=== PATIENT | female | born 1945 | race Hispanic/Latino ===

== ENCOUNTER 2017-01-02 15:10 | Observation (INO) | payer MEDICARE ==
[2017-01-02 15:36] LABS: #Eosinphils 0.1 thou/uL (0.0-0.7); #Lymphocytes 1.9 thou/uL (1.20-3.40); #Monocytes 0.3 thou/uL (0.11-0.59); #Neutrophils 3.2 thou/uL (1.40-6.50); %Basophils 0.8 % (0.0-1.0); %Eosinophils 1.5 % (0.0-10.0); %Lymphocytes 34.6 % (21.0-51.0); %Monocytes 5.5 % (0.0-10.0); Hematocrit 36.9 % (36.0-47.0); Mean Platelet Volume 6.6 fL (7.4-10.4); Red Blood Cell (RBC) Count 4.18 mill/uL (4.20-5.40); White Blood Cell (WBC) Count 5.5 thou/uL (4.8-10.8)
[2017-01-02] MEDS ORDERED: Nitroglycerin 2% Ointment 1 INCH/1 GM Packet ONE (15:36)
[2017-01-02] MEDS ORDERED: Acetaminophen 500 MG TAB ONE (15:36)
[2017-01-02 15:42] LABS: PTT 37.2 SEC (22.9-36.1); Prothrombin Time 12.6 SEC (12.0-14.7)
[2017-01-02 15:58] LABS: ALT (SGPT) 10 U/L (8-55); AST (SGOT) 17 U/L (5-34); Alkaline Phosphatase 106 U/L (40-150); Anion Gap 15 mmol/L (10-20); BUN (Urea Nitrogen) 11 mg/dL (9.8-20.1); Bilirubin, Total 0.4 mg/dL (0.2-1.2); CK (CPK) 19 U/L (29-168); Calc. Creatinine Clearance 0 mL/min (70-130); Calcium 8.6 mg/dL (7.8-10.44); Carbon Dioxide 30 mmol/L (23-31); Chloride 97 mmol/L (98-107); Estimated GFR-MDRD 25; Globulin 4.1 g/dL (2.4-3.5); Lipase 24 U/L (8-78); Magnesium 2.1 mg/dL (1.6-2.6); Protein, Total 7.5 g/dL (6.0-8.3)
[2017-01-02 16:04] LABS: Troponin I 0.015 ng/mL (< 0.028)
--- NOTE | 2017-01-02 16:34 | RAD ---
AP VIEW OF THE CHEST: 01/02/17 INDICATION: Chest pain. IMPRESSION: No acute cardiopulmonary abnormality demonstrated. The examination is not appreciably changed from c omparison dated 09/03/16. POS: [facility]
[2017-01-02 18:32] VITALS: BMI 28.5
[2017-01-02] MEDS ORDERED: Ondansetron HCl/PF 4 MG/2 ML Vial IVP PRN (18:46)
[2017-01-02] MEDS ORDERED: Ondansetron ODT 4 MG TAB SL PRN (18:46)
[2017-01-02 19:26] LABS: Troponin I 0.018 ng/mL (< 0.028)
[2017-01-02] MEDS ORDERED: Dextrose 5% in Water 1,000 ML IV PRN (20:06)
[2017-01-02] MEDS ORDERED: Dextrose 50% Abboject 50 ML SYRINGE IVP PRN (20:06)
[2017-01-02] MEDS ORDERED: HumaLOG 300 UNITS/3 ML VIAL SC SCH (21:00)
[2017-01-02] MEDS ORDERED: Insulin Detemir 100 UNITS/ML 20 UNITS in Pre-Filled Syringe SC SCH (21:00)
[2017-01-02 22:04] LABS: Troponin I Less than 0.010 ng/mL (< 0.028)
[2017-01-03] MEDS: Sevelamer Carbonate 800 MG TAB PO SCH ×3 (08:46→16:51)
[2017-01-03] MEDS: cloNIDine HCl 0.1 MG TAB PO PRN ×2 (08:54→15:29)
[2017-01-03] MEDS ORDERED: Ondansetron HCl/PF 4 MG/2 ML Vial SLOW IVP PRN (11:46)
[2017-01-03] MEDS: Insulin Regular 300 UNITS/3 ML VIAL SC PRN ×2 (12:35→16:51)
[2017-01-03 15:40] VITALS: TEMP 98.2
[2017-01-03 16:27] VITALS: BP 146/65
--- NOTE | 2017-01-03 17:32 | NM ---
MYOCARDIAL PERFUSION GATED SPECT STUDY: Date: 01-03-17 History: Chest pain. Dose: 27 mCi Technetium 99M Cardiolite for stress and 9 mCi for the resting portion of the exam. Th e patient was stressed using 0.4 mg of Lexiscan given IV. FINDINGS: Myocardial perfusion and quantitative gated SPECT images demonstrate no significant evidence of reve rsible myocardial perfusion abnormalities. No evidence of myocardial ischemia or scar seen. Ejection fraction is 71%. IMPRESSION: Normal myocardial perfusion and quantitative gated SPECT study. POS: [facility]
--- NOTE | 2017-01-04 06:47 | HP ---
DATE OF ADMISSION: 01/02/2017 CHIEF COMPLAINT: Chest pain and shortness of breath. HISTORY OF PRESENT ILLNESS: Ms. Nicole is a 71-year-old female with past medical history of end-stage renal disease on hemodialysis, hypertension, diabetes mellitus, who developed chest pain. The patient states she was watching TV when she developed a sharp pain in the chest, retrosternal area. The pain started around 6:00 a.m. and it went away. When she went for dialysis , again the pain came back. The pain was in the retrosternal area radiating to the left side and she was also noted to have shortness of breath along with that. The patient was given nitroglycerin which helped to relieve the chest pain. So, the patient was sent to the emergency room because of this chest pain. The patient was evaluated in the ER and was given aspirin and put on nitroglycerin patch and admitted for further evaluation and management. PAST MEDICAL HISTORY: 1. Insulin-dependent diabetes mellitus. 2. End-stage renal disease, on hemodialysis. 3. Hypertension. 4. Nephrotic range proteinuria. 5. Chronic anemia. 6. History of coronary artery disease. 7. History of gout. PAST SURGICAL HISTORY: 1. Status post appendectomy. 2. Status post cholecystectomy. 3. Status post hysterectomy. 4. Status post left mastectomy. CURRENT MEDICATIONS: The patient is on Levemir insulin 20 units daily, Humalog insulin 10 units at bedtime, vitamin D daily, Renvela 1600 mg t.i.d. The patient's blood pressure medicines were stopped because of hypotension after dialysis. ALLERGIES: DARVOCET. FAMILY HISTORY: Nothing of interest. SOCIAL HISTORY: The patient lives with the family. No history of smoking. No history of alcohol intake. REVIEW OF SYSTEMS: Cardiovascular: Had chest pain and shortness of breath. Respiratory: No fever or cough. Gastrointestinal: Has nausea and vomiting once. No abdominal pain. Genitourinary: No dysuria or hematuria. Central Nervous System: No headache, no dizziness. PHYSICAL EXAMINATION: GENERAL: The patient is alert, awake, and oriented x3. VITAL SIGNS: Temperature 98, pulse 72, respirations 20, blood pressure 190/80. HEENT: Head is normocephalic and atraumatic. Pupils are equal and reactive to light. Nasopharynx is pale and dry. Hard and soft palate, no lesions were seen. Nasopharynx, no lesions were seen. NECK: Supple. No JVD. LUNGS: Breath sounds diminished bilaterally. Percussion dullness. No rales, no rhonchi. HEART: S1, S2 regular. ABDOMEN: Soft, no distention, no tenderness, Bowel sounds present. RECTAL: Deferred. NEUROLOGIC: No focal deficit. LABORATORY AND X-RAY FINDINGS: CBC shows WBC 5.3, hemoglobin 12, hematocrit 37 , platelets 196. Metabolic panel: Sodium 138, potassium 3.9, chloride 97, CO2 of 30, BUN 11, creatinine 1.1, glucose 159. Prothrombin time 12, INR 0.9. EKG shows normal sinus rhythm, no acute ST-T wave changes seen. Chest x-ray, no acute cardiopulmonary abnormality demonstrated. ASSESSMENT: 1. Chest pain and shortness of breath, rule out myocardial infarction. 2. Insulin-dependent diabetes mellitus. 3. End-stage renal disease, on hemodialysis. 4. Hypertension, uncontrolled. 5. Hyperlipidemia. PLAN: 1. Vital signs q. 4 hours. 2. Activity: As tolerated. 3. Allergies: NKDA. 4. Hep-Lock. 5. CK-MB and troponin I q. 8 hours x2. 6. Continue home medications. 7. Lexiscan stress test. 8. Accu-Cheks a.c. and at bedtime, sliding scale mild with regular insulin. MTDD
--- NOTE | 2017-01-05 11:09 | DIS ---
DATE OF ADMISSION: 01/02/2017 DATE OF DISCHARGE: 01/03/2017 ADMITTING DIAGNOSES: 1. Chest pain and shortness of breath, rule out myocardial infarction. 2. Insulin-dependent diabetes mellitus. 3. Hypertension, uncontrolled. 4. End-stage renal disease, on hemodialysis. 5. Hyperlipidemia. FINAL DIAGNOSES: 1. Chest pain and shortness of breath. No evidence of acute myocardial infarction, negative Cardio lite stress test. 2. Hypertension, uncontrolled, improved. 3. Insulin-dependent diabetes mellitus. 4. End-stage renal disease, on hemodialysis. 5. Hyperlipidemia. BRIEF SUMMARY OF HOSPITAL COURSE: Ms. Nicole is a 71-year-old female admitted because of shortness of breath and chest pain. The patient has history of diabetes and hypertension. In view of the risk factors, the patient was admitted to rule out myocardial infarction. Serial cardiac en zymes were done, and troponin I was normal. Cardiolite stress test was done and it was reported as negative for ischemia. The patient's chest pain also improved. Her blood pressure was elevated, bu t usually she runs lows on the blood pressures after dialysis. She becomes hypotensive if she is no t having the blood pressure medications. The patient is given hydralazine one dose after which bloo d pressure came down. In view of improvement, the patient was discharged. PHYSICAL EXAMINATION: At the time of discharge, GENERAL: She was stable. VITAL SIGNS: Stable. LUNGS: Clear. HEART: Sounds regular. ABDOMEN: Soft, nontender. Bowel sounds present. DISCHARGE MEDICATIONS: Include Levemir insulin 20 units daily, Humalog insulin 10 units at bedtime, Renvela 1600 mg t.i.d., and vitamin daily. FOLLOWUP: The patient will come for followup next week regarding her blood pressure.
--- NOTE | 2017-01-08 13:45 | STRESS ---
Acquisition Time: 2017-01-03 10:45:58 Total Exercise Time: 00:01:00 Test Indications: CHEST PAIN Medications: Protocol: LEXISCAN Max HR: 085 BPM 56% of Pred: 151 BPM Max BP: 142/070 mmHG Max Work Load: 1.0 METS RESTING ECG: NORMAL SINUS RHYTHM AT 63 BPM WITH A LEFT ANTERIOR FASCICULAR BLOCK SYMPTOMS: NONE NORMAL BP RESPONSE ECTOPY: NONE ECG STRESS: NO SIGNIFICANT CHANGES INTERPRETATION: INDETERMINATE ECG/AWAIT NUCLEAR IMAGES FOR DEFINITIVE DIAGNOSIS Confirmed by JUANIS OTTO M.D. ([id number]) on 01/08/2017 1:44:53 PM Referred By: MD Aysha PERRIN Confirmed By:JUANIS OTTO M.D.
== END 2017-01-03 18:26 | disposition home or self-care (01) ==
LOC: ERS 15:10 → 2SW 18:14
PROVIDERS: ADMIT Internal Medicine; ATTEND Internal Medicine
DX: R07.9 Chest pain, unspecified (principal); E11.22 Type 2 diabetes mellitus with diabetic chronic kidney disease; I12.0 Hypertensive chronic kidney disease with stage 5 chronic kidney disease or end stage renal disease; N18.6 End stage renal disease; Z99.2 Dependence on renal dialysis; Z79.4 Long term (current) use of insulin; N04.9 Nephrotic syndrome with unspecified morphologic changes; I25.10 Atherosclerotic heart disease of native coronary artery without angina pectoris; D64.9 Anemia, unspecified; Z88.5 Allergy status to narcotic agent; Z90.710 Acquired absence of both cervix and uterus; Z90.49 Acquired absence of other specified parts of digestive tract; Z90.12 Acquired absence of left breast and nipple; Z79.899 Other long term (current) drug therapy
CPT/HCPCS: 71010; 78452; 80053; 82550; 82553; 82962 ×2; 83690; 83735; 84100; 84484 ×2; 85025; 85610; 85730; 93005; 93017; 96374; 99285; A9500; G0378; 36415; 36416; A4216; J1815; J2405

== ENCOUNTER 2017-04-17 12:10 | Inpatient (IN) | payer MEDICARE ==
[2017-04-17 12:43] LABS: #Eosinphils 0.1 thou/uL (0.0-0.7); #Lymphocytes 0.6 thou/uL (1.20-3.40); #Monocytes 0.2 thou/uL (0.11-0.59); #Neutrophils 1.8 thou/uL (1.40-6.50); %Basophils 0.7 % (0.0-1.0); %Eosinophils 2.4 % (0.0-10.0); %Lymphocytes 22.8 % (21.0-51.0); %Monocytes 7.4 % (0.0-10.0); %Neutrophils 66.8 % (42.0-75.0); Hemoglobin 11.9 g/dL (12.0-16.0); Mean Corpuscular HGB CONC 33.5 g/dL (32.0-36.0); Mean Corpuscular Hemoglobin 30.3 pg (27.0-31.0); Mean Corpuscular Volume 90.3 fl (81.0-99.0); Mean Platelet Volume 7.7 fL (7.4-10.4); Platelet Count 133 thou/uL (130-400); RBC Distribution Width 14.2 % (11.5-14.5); Red Blood Cell (RBC) Count 3.95 mill/uL (4.20-5.40); White Blood Cell (WBC) Count 2.7 thou/uL (4.8-10.8)
[2017-04-17 13:08] LABS: ALT (SGPT) 10 U/L (8-55); AST (SGOT) 15 U/L (5-34); Albumin 3.4 g/dL (3.4-4.8); Alkaline Phosphatase 101 U/L (40-150); Anion Gap 17 mmol/L (10-20); BUN (Urea Nitrogen) 40 mg/dL (9.8-20.1); Bilirubin, Total 0.4 mg/dL (0.2-1.2); CK (CPK) 31 U/L (29-168); Calc. Creatinine Clearance 0 mL/min (70-130); Calcium 8.9 mg/dL (7.8-10.44); Carbon Dioxide 20 mmol/L (23-31); Chloride 106 mmol/L (98-107); Estimated GFR-MDRD 9; Globulin 3.3 g/dL (2.4-3.5); Glucose 235 mg/dL (80-115); Lipase 21 U/L (8-78); Potassium 4.9 mmol/L (3.5-5.1); Protein, Total 6.7 g/dL (6.0-8.3); Sodium 138 mmol/L (136-145)
[2017-04-17 13:10] LABS: PTT 40.1 SEC (22.9-36.1); Prothrombin Time 13.3 SEC (12.0-14.7)
[2017-04-17 13:12] LABS: CKMB 1.5 ng/mL (0-6.6)
[2017-04-17] MEDS ORDERED: hydrALAZINE 20 MG/ML VIAL ONE ×2 (13:34→21:12)
--- NOTE | 2017-04-17 15:04 | CT ---
HEAD CT NONCONTRAST: COMPARISON: 08/25/16. FINDINGS: There is mild prominence of the ventricular system. Periventricular white mater hypoattenuation is p resent, and has progressed from prior exam and is most notable within the right parietal lobe. No in tracranial hemorrhage, mass effect, or midline shift. No fluid level of the imaged paranasal sinuses is seen. IMPRESSION: 1. Progressive white matter hypoattenuation which may be on the basis of progressive ischemic diseas e. There is a suggestion of a superimposed deep white matter infarction, likely chronic of the right parietal lobe. This may be further assessed with MRI of brain if necessary. 2. Mild prominence of ventricular system. POS: [facility]
[2017-04-17] MEDS ORDERED: traMADol HCl 50 MG TAB ONE (16:53)
--- NOTE | 2017-04-17 23:02 | ULT ---
ULTRASOUND CAROTID DOPPLER 04/17/17 HISTORY: Syncope. COMPARISON: Carotid doppler exam from 2014. FINDINGS: There is antegrade flow of both vertebral arteries. Low grade atherosclerotic plaque both carotid bul bs. Right ICA/CCA ratio is 0.9. Left ICA/CCA ratio is 0.86. IMPRESSION: No hemodynamically significant stenosis. POS: [facility]
--- NOTE | 2017-04-17 23:42 | HP ---
DATE OF ADMISSION: 04/17/2017 REASON FOR ADMISSION AND CHIEF COMPLAINT: Syncopal episode. HISTORY OF PRESENT ILLNESS: Ms. Nicole is a 71-year-old female with past medical history of end-stage renal disease, on hemodialysis, hypertension, diabetes mellitus, had a syncopal episode while at the dialysis. The patient went for dialysis, she skipped dialysis 2 days ago. The last dialysis was on Wednesday, so she went for dialysis, but before the dialysis started, she went to the bathroom where she felt dizzy and passed out. She felt like her legs were weak and going to pass out when she stood up and she has been having dizziness for the last 5 days and unable to ambulate because of dizziness and that is the reason she did not go for dialysis and her bathroom door was locked, and when she passed out, nobody could enter. When she woke up, she found herself on the floor and her called from outside and she answered, and called the staff who opened the door and found the patient on the floor. She was helped up. The patient thinks she might have passed out for less than 5 minutes. She did not have any chest pain or shortness of breath. No nausea or vomiting except for dizziness. Prior to that, she felt like the room was spinning also, so the patient was sent to the hospital. In the ER, the patient was evaluated and found to have elevated blood pressure, not orthostatic and normal EKG. The patient is being admitted for further evaluation and possible for hemodialysis. PAST MEDICAL HISTORY: 1. Insulin-dependent diabetes. 2. End-stage renal disease, on hemodialysis. 3. Hypertension. 4. Nephrotic range proteinuria. 5. Chronic anemia. 6. History of coronary artery disease. 7. History of gout. PAST SURGICAL HISTORY: 1. Status post cholecystectomy. 2. Status post hysterectomy. 3. Status post appendectomy. 4. Status post left mastectomy. CURRENT MEDICATIONS: She is on Levemir 20 units daily, Renvela 1600 mg t.i.d., vitamin daily, Humalog insulin 10 units before each meal, tramadol p.r.n. for pain 50 mg q.i.d. ALLERGIES: DARVOCET. FAMILY HISTORY: Nothing of interest. SOCIAL HISTORY: The patient lives with family. No history of smoking. No history of alcohol intake. REVIEW OF SYSTEMS: Cardiovascular: No chest pain. No shortness of breath. Respiratory: No fever or cough. Gastrointestinal: No nausea or vomiting. No abdominal pain. Genitourinary: No dysuria or hematuria. Central nervous system: Has dizziness, no headache. PHYSICAL EXAMINATION: GENERAL: The patient is alert, awake, and oriented x3. VITAL SIGNS: Temperature 98, pulse 85, respirations 20, blood pressure 180/70. HEENT: Head is normocephalic and atraumatic. Pupils are equal and reactive to light. Nasopharynx is pale and dry. Hard and soft palate, no lesions seen. SKIN: Turgor decreased. NECK: Supple. No JVD. LUNGS: Bilateral air entry present, no rales, no rhonchi. HEART: S1, S2 regular. ABDOMEN: Soft, no distention, no tenderness. Normal bowel sounds present. RECTAL: Deferred. CENTRAL NERVOUS SYSTEM: The patient is alert, awake, oriented x3. Motor system power 4/5 in all extremities. Deep tendon reflexes 2+ bilaterally. Plantars downgoing. Sensory intact. LABORATORY DATA: CBC shows WBC 2.7, hemoglobin 11.9, hematocrit 35, platelets 133. Metabolic panel: Sodium 137, potassium 4.7, chloride 106, CO2 of 20, BUN 40, creatinine 4.7, glucose 235. Prothrombin time 13, INR 1. CT of the brain, progressive white matter hypoattenuation progressive ischemic disease, showed only chronic changes, no acute bleeding. EKG shows normal sinus rhythm, no acute ST-T wave changes seen. ASSESSMENT: 1. Syncopal episode, rule out myocardial infarction, rule out cardiac arrhythmia, possibly vasovagal syncope. 2. Vertigo. 3. Hypertension, uncontrolled. 4. End-stage renal disease, on hemodialysis. 5. Diabetes mellitus. 6. Chronic pain. PLAN: 1. Vital signs q.4 hours. 2. Activity: As tolerated. 3. Allergies: NKDA. 4. Hep-Lock. 5. Carotid Doppler study. 6. Echocardiogram. 7. We will continue home medication. 8. Nephrology consult for hemodialysis. CHINTAN
[2017-04-18] MEDS ORDERED: Dextrose 5% in Water 1,000 ML IV PRN (02:31)
[2017-04-18] MEDS ORDERED: Dextrose 50% Abboject 50 ML SYRINGE IVP PRN (02:31)
[2017-04-18] MEDS ORDERED: hydrALAZINE 20 MG/ML VIAL SLOW IVP PRN (02:34)
[2017-04-18] MEDS ORDERED: Meclizine HCl 25 MG TAB ONE (11:29)
[2017-04-18 13:48] VITALS: BMI 27.3
--- NOTE | 2017-04-18 13:52 | CON ---
DATE OF CONSULTATION: 04/18/2017 HISTORY OF PRESENT ILLNESS: Ms. Nicole is a 71-year-old female with ESRD from diabetic ne phropathy, on maintenance hemodialysis and we were consulted for her dialysis. She did miss dialysis yesterday. I did examine the patient. I do not feel there is any indication for any emergent dialy sis. We can until Wednesday. REVIEW OF SYSTEMS: Positive for syncopal episode. Positive for nausea and vomiting. No diarrhea, n o constipation. No fever or chills. No abdominal pain. No hematochezia, no melena, no hematemesis, no dysuria. No fever or chills. No sore throat. No cough. No urinary frequency. HOME MEDICATIONS: Includes the following. Levemir 20 units subcu daily, Renvela 800 mg 2 tabs t.i.d . with meals, Humalog sliding scale and tramadol p.r.n. PAST MEDICAL HISTORY: Gout, ESRD from diabetic nephropathy, type 2 diabetes mellitus, hypertension, status post proteinuria, chronic anemia of chronic renal disease and coronary artery disease. PAST SURGICAL HISTORY: 1. The patient is status post cholecystectomy. 2. Status post AV fistula placement. 3. The patient is status post cuffed hemodialysis catheter placement. 4. Status post lumbar tap. 5. Status post cardiac catheterization. 6. Status post excision of lipoma. 7. Status post bilateral tubal ligations. 8. Status post left nephrectomy. 9. Status post hysterectomy. 10. Status post appendectomies. 11. Status post coronary stent placement. ALLERGIES: NAPROSYN. TRAUMA: Status post collarbone fracture, status post hip fracture and status post right leg fracture . IMMUNIZATIONS: Up to date. HOSPITALIZATIONS: Please see past medical history. SOCIAL HISTORY: The patient lives in [place]. , 6 children. No smoking. No alcohol intake. Status post blood transfusion. No IV drug abuse. Education; high school. Sedentary lifestyle. 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 FAMILY HISTORY: No family history of ESRD. PHYSICAL EXAMINATION: VITAL SIGNS: Blood pressure is noted at 170/70 and heart rate 70. GENERAL: Awake, supine and comfortable, not in distress. SKIN: Adequate turgor. HEENT: Pinkish conjunctivae, anicteric sclerae. NECK: No neck mass, no carotid bruits, no JVD. CHEST: No deformities. LUNGS: Clear breath sounds. No wheezing, no crackles. HEART: Normal sinus rhythm. No murmur, no gallops or rubs. ABDOMEN: Globular, soft and nontender. EXTREMITIES: No edema or deformities. NEUROLOGIC: Awake, oriented in 3 spheres. Moving all extremities. No tremors, no asterixis, no padmini michelle. LABORATORY DATA: Laboratories of 04/17/2017; white count 2.7 and hemoglobin 11.9. Sodium 138, potas sium 4.9, chloride 106, carbon dioxide 20, BUN 40, creatinine 4.79, glucose 235, AST 15, ALT 10, calc ium is 8.9, albumin is 3.4, troponin I is 0.020. IMAGING DATA: CT scan of the brain, no acute intracranial abnormality. There is some white matter h ypoattenuation. Carotid Doppler study. No hemodynamically significant stenosis. ASSESSMENT AND PLAN: 1. Syncopal episode - patient to be observed for further management. CT scan of the brain showed no acute intracranial abnormality. In addition, carotid Dopplers are negative. 2. End-stage renal disease, stable. Although, the patient missed dialysis yesterday, I do not feel there is indication for any emergent hemodialysis this morning. Continue supportive care. I can try to wait until Wednesday for her next dialysis session. 3. Nausea and vomiting - this could be related from her diabetic gastroparesis, p.r.n. Wm as laila ded. 4. Review of the last Kt/V suggests the patient is adequately dialyzed with the current dialysis reg imen.
[2017-04-18] MEDS: Meclizine HCl 25 MG TAB PO SCH ×2 (13:53→19:54)
[2017-04-18 15:22] LABS: Troponin I 0.018 ng/mL (< 0.028)
[2017-04-18] MEDS: Sevelamer Carbonate 800 MG TAB PO SCH (16:07)
[2017-04-18] MEDS: Insulin Detemir 100 UNITS/ML 20 UNITS in Pre-Filled Syringe 1 EACH SC SCH (19:54)
[2017-04-18 21:25] LABS: Troponin I 0.018 ng/mL (< 0.028)
[2017-04-19] MEDS: Sevelamer Carbonate 800 MG TAB PO SCH ×3 (08:06→17:31)
[2017-04-19] MEDS: Meclizine HCl 25 MG TAB PO SCH ×2 (08:07→21:17)
[2017-04-19] MEDS ORDERED: Fentanyl 100 MCG/2 ML VIAL ONE (10:57)
[2017-04-19] MEDS: traMADol HCl 50 MG TAB PO PRN (11:51)
[2017-04-19] MEDS: Insulin Regular 300 UNITS/3 ML VIAL SC PRN ×2 (17:23→20:50)
[2017-04-19] MEDS: Insulin Detemir 100 UNITS/ML 20 UNITS in Pre-Filled Syringe 1 EACH SC SCH (20:49)
[2017-04-20 05:39] LABS: #Eosinphils 0.1 thou/uL (0.0-0.7); #Lymphocytes 1.5 thou/uL (1.20-3.40); #Monocytes 0.2 thou/uL (0.11-0.59); #Neutrophils 1.3 thou/uL (1.40-6.50); %Basophils 0.4 % (0.0-1.0); %Eosinophils 2.8 % (0.0-10.0); %Lymphocytes 46.9 % (21.0-51.0); %Monocytes 7.2 % (0.0-10.0); %Neutrophils 42.7 % (42.0-75.0); Hemoglobin 10.9 g/dL (12.0-16.0); Mean Corpuscular HGB CONC 32.9 g/dL (32.0-36.0); Mean Corpuscular Hemoglobin 29.8 pg (27.0-31.0); Mean Corpuscular Volume 90.8 fl (81.0-99.0); Mean Platelet Volume 7.4 fL (7.4-10.4); Platelet Count 143 thou/uL (130-400); RBC Distribution Width 14.1 % (11.5-14.5); Red Blood Cell (RBC) Count 3.66 mill/uL (4.20-5.40); White Blood Cell (WBC) Count 3.1 thou/uL (4.8-10.8)
[2017-04-20 06:03] LABS: Anion Gap 15 mmol/L (10-20); BUN (Urea Nitrogen) 54 mg/dL (9.8-20.1); Calc. Creatinine Clearance 12 mL/min (70-130); Calcium 8.6 mg/dL (7.8-10.44); Carbon Dioxide 19 mmol/L (23-31); Chloride 108 mmol/L (98-107); Estimated GFR-MDRD 8; Glucose 203 mg/dL (80-115); Potassium 4.6 mmol/L (3.5-5.1); Sodium 137 mmol/L (136-145)
[2017-04-20] MEDS: Meclizine HCl 25 MG TAB PO SCH ×2 (08:32→21:29)
[2017-04-20] MEDS: traMADol HCl 50 MG TAB PO PRN (08:32)
[2017-04-20] MEDS: Sevelamer Carbonate 800 MG TAB PO SCH ×3 (08:33→16:44)
[2017-04-20 09:13] LABS: Hep B Surf Ag Non-Reactive S/CO (NonReactive)
[2017-04-20] MEDS ORDERED: Lidocaine-Prilocaine 2.5% Cream 5 GM TUBE TOP SCH (09:45)
--- NOTE | 2017-04-20 09:54 | PRG ---
DATE OF SERVICE: 04/20/2017 RENAL MEDICINE SUBJECTIVE: Ms. Nicole is a 71-year-old female with ESRD and being followed by [facility] for [facility] hemod[facility]. She voices no new complaints. She denies any chest pain or shortness of br eath. She denies any recurrence of her syncopal episode. Appetite and energy level is fair. PHYSICAL EXAMINATION: VITAL SIGNS: Blood pressure 174/71, heart rate 74, respiratory rate 18, temperature 98.4, pulse ox 9 7%. GENERAL: Awake, alert, sitting comfortable. SKIN: Adequate turgor. HEENT: Pinkish conjunctivae, anicteric sclerae. NECK: No neck mass, no carotid bruits, no JVD. CHEST: No deformities. LUNGS: Clear breath sounds. No wheezing, no crackles. HEART: Normal sinus rhythm. No murmur, no gallops, no rubs. ABDOMEN: Globular, soft, nontender. EXTREMITIES: No edema. MEDICATIONS: Medications of 04/20/2017 was reviewed. LABORATORY DATA: Laboratories of 04/20/2017; white count 3.1, hemoglobin 10.9. Sodium 137, potassiu m 4.6, chloride 108, carbon dioxide 19, BUN 54, creatinine 5.13, glucose 203, and calcium 8.6. ASSESSMENT AND PLAN: 1. End-stage renal disease, stable. Continuing current Wednesday, , and Wednesday dialysis. Leonides alcocer has been scheduled for dialysis this afternoon. Fluid removal only as tolerated. 2. Borderline anemia. We will continue to observe. 3. Near syncopal episode - much improved. Clinically, no recurrence. 4. Nausea and vomiting - improved. Most likely from diabetic gastroparesis. Overall, agree with rrent management. We will recheck another basic metabolic panel and CBC in a.m.
[2017-04-20] MEDS: Insulin Detemir 100 UNITS/ML 20 UNITS in Pre-Filled Syringe 1 EACH SC SCH (21:29)
[2017-04-20] MEDS: Insulin Regular 300 UNITS/3 ML VIAL SC PRN (21:31)
[2017-04-21] MEDS: Insulin Regular 300 UNITS/3 ML VIAL SC PRN (04:26)
[2017-04-21 04:40] LABS: #Eosinphils 0.1 thou/uL (0.0-0.7); #Lymphocytes 1.7 thou/uL (1.20-3.40); #Monocytes 0.3 thou/uL (0.11-0.59); %Basophils 0.1 % (0.0-1.0); %Lymphocytes 41.6 % (21.0-51.0); %Monocytes 7.2 % (0.0-10.0); %Neutrophils 49.1 % (42.0-75.0); Hemoglobin 11.2 g/dL (12.0-16.0); Mean Corpuscular HGB CONC 33.6 g/dL (32.0-36.0); Mean Corpuscular Hemoglobin 29.8 pg (27.0-31.0); Mean Corpuscular Volume 88.6 fl (81.0-99.0); Mean Platelet Volume 7.6 fL (7.4-10.4); Platelet Count 142 thou/uL (130-400); RBC Distribution Width 13.8 % (11.5-14.5); Red Blood Cell (RBC) Count 3.75 mill/uL (4.20-5.40)
[2017-04-21 04:56] LABS: Anion Gap 13 mmol/L (10-20); BUN (Urea Nitrogen) 33 mg/dL (9.8-20.1); Calc. Creatinine Clearance 16 mL/min (70-130); Calcium 8.5 mg/dL (7.8-10.44); Carbon Dioxide 26 mmol/L (23-31); Chloride 101 mmol/L (98-107); Estimated GFR-MDRD 11; Glucose 258 mg/dL (80-115); Potassium 3.9 mmol/L (3.5-5.1); Sodium 136 mmol/L (136-145)
[2017-04-21 07:59] VITALS: BP 130/60; TEMP 98.5
[2017-04-21] MEDS: Meclizine HCl 25 MG TAB PO SCH (08:35)
[2017-04-21] MEDS: Sevelamer Carbonate 800 MG TAB PO SCH (08:35)
--- NOTE | 2017-04-22 03:44 | DIS ---
DATE OF ADMISSION: 04/17/2017 DATE OF DISCHARGE: 04/21/2017 ADMITTING DIAGNOSES: 1. Syncopal episode, rule out myocardial infarction, rule out cardiac arrhythmia. 2. Vertigo. 3. Hypertension, uncontrolled. 4. End-stage renal disease, on hemodialysis. 5. Diabetes mellitus. 6. Chronic back pain. FINAL DIAGNOSES: 1. Syncopal episode. No evidence of acute myocardial, no evidence of cardiac arrhythmia. 2. Possibly vasovagal. 3. Hypertension, uncontrolled, improved. 4. End-stage renal disease, on hemodialysis. 5. Vertigo 6. Chronic pain. BRIEF SUMMARY OF HOSPITAL COURSE: Ms. Nicole is a 71-year-old female, [facility] of syncope while at the dialysis unit, so the patient was sent to the hospital where she was evaluated and admitted for further management. The patient had cardiac enzymes were done and th ey were within normal limits. An echocardiogram was done, which showed normal LV function with eject ion fraction of 55%, showed some diastolic dysfunction. Carotid Doppler study was done and reveal (0 1:50) hemodynamically no significant stenosis. The patient's blood pressure was elevated but closely monitor her dizziness. She had vertigo, so she was started on meclizine after which her vertigo imp roved. The patient underwent dialysis. After the dialysis, the patient was very sick, she was feeli ng very weak and dizzy. The patient states she took more fluid than usual during dialysis, but right now, patient is feeling better. No dizziness. She was not feeling weak, able to ambulate. So in v iew of improvement, the patient is being discharged home. At the time of discharge, she was stable. Her vital signs were stable. Lungs were clear. Heart sounds regular. Abdomen was soft, nontender. Bowel sounds present. DISCHARGE MEDICATIONS: Include Humalog insulin 10 units daily, Levemir insulin 20 units daily, Renve la 1600 mg t.i.d., vitamin D daily 5000 units, meclizine 25 b.i.d., tramadol 50 b.i.d. p.r.n. The Hu malog insulin should be 10 units with each meal. DISCHARGE INSTRUCTIONS: The patient will continue with ADA diet and renal diet and continue hemodial ysis and come for followup in 2 weeks.
--- NOTE | 2017-05-22 17:47 | EKG ---
Test Reason : DIZZINESS Blood Pressure : / mmHG Vent. Rate : 083 BPM Atrial Rate : 083 BPM P-R Int : 142 ms QRS Dur : 138 ms QT Int : 422 ms P-R-T Axes : 026 -44 005 degrees QTc Int : 495 ms Normal sinus rhythm Left axis deviation Right bundle branch block Abnormal ECG No changes since DEC 2016 Confirmed by MALATHI WANG ([id number]), photography editor BRANDAN FERRELL ([id number]) on 05/22/2017 5:46:41 PM Referred By: KATHLEEN Confirmed By:MALATHI WANG
== END 2017-04-21 10:43 | disposition home or self-care (01) | DRG 312 ==
LOC: ERS 12:10 → T4-A 04-18 13:32
PROVIDERS: ADMIT Internal Medicine; ATTEND Internal Medicine
PROC: 5A1D70Z Performance of Urinary Filtration, Intermittent, Less than 6 Hours Per Day (ICD-10-PCS; principal; 2017-04-20)
DX: R55 Syncope and collapse (principal); E11.22 Type 2 diabetes mellitus with diabetic chronic kidney disease; K31.84 Gastroparesis; E11.43 Type 2 diabetes mellitus with diabetic autonomic (poly)neuropathy; N18.6 End stage renal disease; I10 Essential (primary) hypertension; Z79.4 Long term (current) use of insulin; Z99.2 Dependence on renal dialysis; R42 Dizziness and giddiness; G89.29 Other chronic pain; D63.1 Anemia in chronic kidney disease; I25.10 Atherosclerotic heart disease of native coronary artery without angina pectoris
CPT/HCPCS: 36415; 36416; 70450; 80048; 80053; 82550; 82553; 83690; 83735; 84484; 85025; 85379; 85610; 85730; 87340; 90935; 93005; 93306; 93880; 94760; 96374; 96376; G0257; J0360; J1815; J3010

== ENCOUNTER 2017-10-22 21:41 | Emergency (ER) | payer MEDICARE ==
[2017-10-22 23:02] LABS: #Lymphocytes 1.2 thou/uL (1.20-3.40); #Monocytes 0.2 thou/uL (0.11-0.59); #Neutrophils 2.1 thou/uL (1.40-6.50); %Basophils 0.3 % (0.0-1.0); %Lymphocytes 34.9 % (21.0-51.0); %Monocytes 5.4 % (0.0-10.0); %Neutrophils 58.4 % (42.0-75.0); Mean Corpuscular HGB CONC 36.1 g/dL (32.0-36.0); Mean Corpuscular Hemoglobin 31.8 pg (27.0-31.0); Mean Corpuscular Volume 88.1 fL (78.0-98.0); Mean Platelet Volume 6.8 fL (7.4-10.4); Platelet Count 138 thou/uL (130-400); RBC Distribution Width 13.5 % (11.5-14.5); Red Blood Cell (RBC) Count 2.82 mill/uL (4.20-5.40); White Blood Cell (WBC) Count 3.5 thou/uL (4.8-10.8)
--- NOTE | 2017-10-22 23:08 | CT ---
NONCONTRAST ENHANCED CT IMAGES BRAIN 10/22/17 HISTORY: 72-year-old complaining of weakness. Patient could not lift either leg and could not walk. Noncontrast enhanced CT images of the brain is obtained. Comparison made to a previous CT brain from 04/17/17. CT images of the brain demonstrate diffuse cortical atrophy and extensive deep white matter ischemic changes. An old area of infarction seen in the right centrum semiovale unchanged since the previous e xam. No evidence of acute intracranial masses or lesions seen. IMPRESSION: Cortical atrophy and deep white matter ischemic changes. No significant interval changes noted. POS: [facility]
[2017-10-22 23:21] LABS: ALT (SGPT) 7 U/L (8-55); AST (SGOT) 10 U/L (5-34); Albumin 3.5 g/dL (3.4-4.8); Alkaline Phosphatase 95 U/L (40-150); Anion Gap 15 mmol/L (10-20); BUN (Urea Nitrogen) 41 mg/dL (9.8-20.1); Bilirubin, Total 0.3 mg/dL (0.2-1.2); CK (CPK) 41 U/L (29-168); Calc. Creatinine Clearance 0 mL/min (70-130); Carbon Dioxide 24 mmol/L (23-31); Chloride 102 mmol/L (98-107); Estimated GFR-MDRD 7; Globulin 3.4 g/dL (2.4-3.5); Glucose 190 mg/dL (80-115); Magnesium 2.2 mg/dL (1.6-2.6); Potassium 4.4 mmol/L (3.5-5.1); Protein, Total 6.9 g/dL (6.0-8.3); Sodium 137 mmol/L (136-145)
[2017-10-22 23:58] LABS: Bilirubin Negative (Negative); Blood, Urine Moderate (Negative); Clarity CLEAR (Clear); Glucose, Urine (Dipstick) 500 mg/dL (Negative); Leukocyte Small (Negative); Nitrite Negative (Negative); Protein, Urine (Dipstick) 300 mg/dL (Neg-Trace); Specific Gravity, Urine 1.016 (1.002-1.036); Urobilinogen 0.2 mg/dL (0.2-1.0); pH, Urine 7.5 (5.0-9.0)
[2017-10-23 00:01] LABS: Bacteria/HPF 1+ HPF (None Seen); Hyaline Casts/LPF 0-3 HYALINE CAST LPF (0-3 Hyaline); RBC/HPF 21-50 HPF (0-3); Squamous Epithelial 0-3 HPF (0-3); WBC/HPF 21-50 HPF (0-3)
== END 2017-10-23 00:02 | disposition home or self-care (01) ==
LOC: ERS 21:41
DX: R53.1 Weakness (principal); R20.2 Paresthesia of skin; N39.0 Urinary tract infection, site not specified; E11.9 Type 2 diabetes mellitus without complications; E78.5 Hyperlipidemia, unspecified; I11.0 Hypertensive heart disease with heart failure; I50.9 Heart failure, unspecified; Z79.4 Long term (current) use of insulin; Z79.899 Other long term (current) drug therapy
CPT/HCPCS: 70450; 80053; 81003; 81015; 82550; 83735; 85025; 93005

== ENCOUNTER 2017-10-30 15:52 | Emergency (ER) | payer MEDICARE ==
[2017-10-30 16:49] LABS: #Lymphocytes 1.1 thou/uL (1.20-3.40); #Monocytes 0.3 thou/uL (0.11-0.59); #Neutrophils 3.5 thou/uL (1.40-6.50); %Basophils 0.9 % (0.0-1.0); %Eosinophils 0.7 % (0.0-10.0); %Lymphocytes 22.1 % (21.0-51.0); %Monocytes 5.1 % (0.0-10.0); %Neutrophils 71.1 % (42.0-75.0); Hemoglobin 10.4 g/dL (12.0-16.0); Mean Corpuscular HGB CONC 35.5 g/dL (32.0-36.0); Mean Corpuscular Hemoglobin 31.1 pg (27.0-31.0); Mean Corpuscular Volume 87.6 fL (78.0-98.0); Mean Platelet Volume 6.9 fL (7.4-10.4); Platelet Count 178 thou/uL (130-400); RBC Distribution Width 14.6 % (11.5-14.5); Red Blood Cell (RBC) Count 3.33 mill/uL (4.20-5.40); White Blood Cell (WBC) Count 4.9 thou/uL (4.8-10.8)
--- NOTE | 2017-10-30 17:01 | RAD ---
PORTABLE CHEST: 10/30/17 INDICATION: Syncope. COMPARISON: 01/02/17. The lungs appear clear. No infiltrate seen. The heart size is upper normal but stable. Vascular elizabeth ngs are within normal range. IMPRESSION: No evidence of acute process. POS: [facility]
[2017-10-30 17:18] LABS: ALT (SGPT) 13 U/L (8-55); AST (SGOT) 39 U/L (5-34); Alkaline Phosphatase 67 U/L (40-150); Anion Gap 17 mmol/L (10-20); BUN (Urea Nitrogen) 12 mg/dL (9.8-20.1); Bilirubin, Total 0.6 mg/dL (0.2-1.2); Calc. Creatinine Clearance 0 mL/min (70-130); Calcium 8.6 mg/dL (7.8-10.44); Carbon Dioxide 29 mmol/L (23-31); Chloride 94 mmol/L (98-107); Estimated GFR-MDRD 20; Globulin 4.3 g/dL (2.4-3.5); Glucose 177 mg/dL (80-115); Potassium 5.4 mmol/L (3.5-5.1); Protein, Total 8.3 g/dL (6.0-8.3); Sodium 135 mmol/L (136-145)
== END 2017-10-30 17:56 | disposition home or self-care (01) ==
LOC: ERS 15:52
DX: R55 Syncope and collapse (principal); E11.9 Type 2 diabetes mellitus without complications; I11.0 Hypertensive heart disease with heart failure; I50.9 Heart failure, unspecified; E78.5 Hyperlipidemia, unspecified; Z99.2 Dependence on renal dialysis
CPT/HCPCS: 71045; 80053; 85025; 93005

== ENCOUNTER 2017-11-08 19:12 | Observation (INO) | payer MEDICARE ==
[2017-11-08 20:35] LABS: #Eosinphils 0.1 thou/uL (0.0-0.7); Mean Corpuscular Volume 89.9 fL (78.0-98.0); Mean Platelet Volume 7.7 fL (7.4-10.4)
[2017-11-08 20:52] LABS: #Lymphocytes 1.2 thou/uL (1.20-3.40); #Monocytes 0.2 thou/uL (0.11-0.59); #Neutrophils 2.3 thou/uL (1.40-6.50); %Basophils 0.6 % (0.0-1.0); %Eosinophils 1.4 % (0.0-10.0); %Monocytes 5.8 % (0.0-10.0); %Neutrophils 61.3 % (42.0-75.0); Hemoglobin 9.8 g/dL (12.0-16.0); Mean Corpuscular HGB CONC 35.3 g/dL (32.0-36.0); Mean Corpuscular Hemoglobin 31.8 pg (27.0-31.0); Platelet Count 145 thou/uL (130-400); RBC Distribution Width 14.3 % (11.5-14.5); Red Blood Cell (RBC) Count 3.08 mill/uL (4.20-5.40); White Blood Cell (WBC) Count 3.8 thou/uL (4.8-10.8)
[2017-11-08] MEDS ORDERED: Lorazepam 2 MG/ML VIAL ONE (20:55)
[2017-11-08] MEDS ORDERED: Nitroglycerin 0.4 MG TAB (25 Tab Bottle) ONE (20:56)
[2017-11-08] MEDS ORDERED: Nitroglycerin 2% Ointment 1 INCH/1 GM Packet ONE (20:56)
[2017-11-08 20:58] LABS: CKMB 1.8 ng/mL (0-6.6); Troponin I Less than 0.010 ng/mL (< 0.028)
[2017-11-08 21:00] LABS: ALT (SGPT) 9 U/L (8-55); AST (SGOT) 11 U/L (5-34); Albumin 3.8 g/dL (3.4-4.8); Alkaline Phosphatase 93 U/L (40-150); Anion Gap 14 mmol/L (10-20); BUN (Urea Nitrogen) 35 mg/dL (9.8-20.1); Bilirubin, Total 0.4 mg/dL (0.2-1.2); CK (CPK) 45 U/L (29-168); Calc. Creatinine Clearance 0 mL/min (70-130); Calcium 9.1 mg/dL (7.8-10.44); Carbon Dioxide 27 mmol/L (23-31); Chloride 96 mmol/L (98-107); Estimated GFR-MDRD 8; Globulin 3.5 g/dL (2.4-3.5); Glucose 524 mg/dL (80-115); Lipase 22 U/L (8-78); Potassium 4.6 mmol/L (3.5-5.1); Protein, Total 7.3 g/dL (6.0-8.3); Sodium 132 mmol/L (136-145)
--- NOTE | 2017-11-08 21:00 | RAD ---
PORTABLE CHEST ONE VIEW: 11/08/17 at 8:13 p.m. HISTORY: Chest pain. FINDINGS: Comparison is made with the exam of 10/30/17. The heart size remains upper limits of normal. The aorta is tortuous. The lungs are well expanded wit hout lobar consolidation, pneumothoraces, or kyleigh pulmonary edema or pleural effusions. IMPRESSION: Stable exam. No acute process. POS: [facility]
[2017-11-08] MEDS ORDERED: Insulin Regular 300 UNITS/3 ML VIAL ONE (21:33)
[2017-11-09] MEDS ORDERED: Dextrose 5% in Water 1,000 ML IV PRN ×3 (03:31→18:22)
[2017-11-09] MEDS ORDERED: Insulin Regular 300 UNITS/3 ML VIAL SC PRN ×4 (03:31→18:22)
[2017-11-09] MEDS ORDERED: Dextrose 50% Abboject 50 ML SYRINGE IVP PRN ×3 (03:31→18:22)
[2017-11-09 03:41] VITALS: BMI 28.5
[2017-11-09] MEDS ORDERED: Nitroglycerin 2% Ointment 1 INCH/1 GM Packet TOP SCH (06:00)
[2017-11-09] MEDS ORDERED: Sodium Chloride 0.9% 40 ML ONE (07:55)
[2017-11-09] MEDS ORDERED: Epoetin (ESRD) 20,000 UNITS/ML SC SCH (09:00)
[2017-11-09] MEDS ORDERED: Aspirin 325 mg Enteric Coated Tablet PO SCH (09:00)
--- NOTE | 2017-11-09 10:04 | CON ---
DATE OF CONSULTATION: 11/09/2017 HISTORY OF PRESENT ILLNESS: Ms. Nicole is a 72-year-old female with ESRD and admitted for chest pain. According to the patient, she has been having on and off chest pain for the last severa l days. When she was previously having this near syncopal episode she was referred to Cardiology. T he feeling at that time she did not have active ischemia. However, she has been scheduled for a card iac stress test as an outpatient. Last Wednesday, the patient still developed chest pain. This was r elieved with sublingual nitro. One day prior to admission, she had recurrent chest pain. For that r josemanuel, went to the ER. She is now admitted for further management. We are being consulted for her [facility]. REVIEW OF SYSTEMS: Positive for chest pain. Positive for associated shortness of breath, occasional syncopal episode, no nausea, no vomiting, no fever or chills, no abdominal pain. Appetite and energ y level is fair. No hematochezia, no melena, no dysuria. MEDICATIONS: The patient is currently on the following medicine; Ecotrin 325 mg once a day, Humulin R sliding scale, Nitro-Bid 2% 1 tab q.6h. Review of her home medications include Keflex 500 mg p.o. b.i.d., Levemir 20 units subcu at bedtime, meclizine 25 mg b.i.d., Renvela 800 mg 2 tabs t.i.d. with meals, clonidine 0.1 mg every other day. PAST MEDICAL HISTORY: 1. ESRD secondary to diabetic nephropathy. 2. Type 2 diabetes mellitus. 3. Coronary artery disease. 4. Hypertension. 5. Chronic anemia. 6. Gout. PAST SURGICAL HISTORY: 1. Status post cardiac catheterization. 2. Status post coronary stent placement. 3. Status post appendectomy. 4. Status post AV fistula placement. 5. Status post cuffed hemodialysis catheter placement. 6. Status post bilateral tubal ligation. 7. Status post lumbar tap. 8. Status post cholecystectomy. 9. Status post left nephrectomy. ALLERGIES: NAPROSYN. TRAUMA: Status post collarbone fracture, status post hip fracture, status post right leg fracture. IMMUNIZATIONS: Up to date. HOSPITALIZATIONS: Please see past medical history. SOCIAL HISTORY: The patient is and lives in [place]. Six children. 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 Status post multiple blood transfusions. Currently, no smoking, no alcohol intake. Education; high school. Status post blood transfusion. FAMILY HISTORY: No family history of ESRD. PHYSICAL EXAMINATION: VITAL SIGNS: Blood pressure 186/74, heart rate 75, respiratory rate 17, temperature 97.6, pulse ox 9 7%. GENERAL: Awake, alert, supine, comfortable, not in overt distress. SKIN: Adequate turgor. HEENT: Slightly pale conjunctivae, anicteric sclerae. NECK: No neck mass, no carotid bruits, no JVD. CHEST: No deformities. LUNGS: Clear breath sounds, no wheezing, no crackles. HEART: Normal sinus rhythm. No murmur, no gallops or rubs. ABDOMEN: Globular, soft, nontender, no masses. EXTREMITIES: No edema. NEUROLOGIC: Awake, oriented to 3 spheres. Moving all extremities. No tremors. LABORATORY: 11/08/2017 - White count 3.8, hemoglobin 9.8. Sodium 132, potassium 4.6, chloride 96, c arbon dioxide 27, BUN 35, creatinine 5.36, glucose 524, calcium 9.1, AST 11, ALT 9. Troponin I less than 0.010. 11/08/2017 - Chest x-ray stable. No CHF. ASSESSMENT AND PLAN: 1. Chest pain - patient being ruled out for myocardial infarction. Cardiology consult. Consider sc heduling for cardiac stress test. 2. End-stage renal disease, stable. We will continue current Wednesday, , and Wednesday dialys is regimen. Review of the last Kt/V suggests she is adequately dialyzed with the current dialysis re john. 3. Anemia. Start Epogen 7500 units subcu every week. Thank you for the consult. We will continue to follow.
[2017-11-09 15:45] LABS: CKMB 1.7 ng/mL (0-6.6); Troponin I Less than 0.010 ng/mL (< 0.028)
[2017-11-09] MEDS: Nitroglycerin 0.4 MG TAB (25 Tab Bottle) ONE ×2 (16:35→16:40)
[2017-11-09] MEDS ORDERED: traMADol HCl 50 MG TAB PO PRN ×2 (16:48→18:25)
[2017-11-09] MEDS ORDERED: Sevelamer Carbonate 800 MG TAB PO SCH (17:00)
[2017-11-09] MEDS ORDERED: Nitroglycerin 0.4 MG TAB (25 Tab Bottle) SL PRN (17:14)
[2017-11-09] MEDS ORDERED: Acetaminophen 325 MG TAB PO PRN (17:14)
[2017-11-09 17:57] LABS: CKMB 1.3 ng/mL (0-6.6); Troponin I 0.013 ng/mL (< 0.028)
[2017-11-09] MEDS: Meclizine HCl 25 MG TAB PO SCH (20:41)
[2017-11-09] MEDS ORDERED: Insulin Glargine 20 UNITS in Pre-Filled Syringe 1 EACH SC SCH (21:00)
[2017-11-09] MEDS ORDERED: Meclizine HCl 25 MG TAB PO SCH (21:00)
[2017-11-09] MEDS ORDERED: HumaLOG 300 UNITS/3 ML VIAL SC SCH (21:00)
[2017-11-09] MEDS ORDERED: INSULIN GLARGINE SC SCH (21:00)
--- NOTE | 2017-11-09 23:33 | CON ---
DATE OF CONSULTATION: 11/09/2017 HISTORY OF PRESENT ILLNESS: Ms. Roslyn Nicole is a 72-year-old white female who was recently evaluated by Dr. Smith in the office. She was scheduled to have a PET scan in the near future; however, has continued to have chest pain and decided to come to the emergency room. She apparently had a syncopal episode once during dialysis. She now is complaining of episodes of sharp stabbing chest discomfort on the left side of her chest. The pain is definitely pleuritic in nature. The pain does not appear to be positional. Whenever she has an episode, it would last at least 30-60 minutes. Despite multiple episodes of pain yesterday and today, her cardiac enzymes continued to remain normal. PAST MEDICAL HISTORY: End-stage renal disease after multiple episodes of pancreatitis, diabetes, hypertension, anemia. She has previously had a Cardiolite scan in 08/2013 and 12/2016 that was normal, hyperlipidemia. OPERATIONS: Cholecystectomy, hysterectomy, left nephrectomy, left mastectomy, left elbow surgery, bilateral carpal tunnel release, appendectomy. MEDICATIONS: Keflex 500 q.i.d., clonidine 0.1 every other day, Humalog 10 units at bedtime, Levemir FlexPen 20 units at bedtime, meclizine 25 b.i.d., tramadol p.r.n., Renvela 1600 t.i.d. ALLERGIES: DARVOCET, DARVON, and MORPHINE. SOCIAL HISTORY: She does not smoke or drink. REVIEW OF SYSTEMS: Twelve point review of systems otherwise unremarkable. PHYSICAL EXAMINATION: VITAL SIGNS: 144/67, pulse 76. HEENT: PERRL. NECK: Supple. CHEST: Clear. CARDIAC: S1 and S2 normal are without any S3 or S4. There is a 1-2/6 systolic murmur in the aortic area. ABDOMEN: Normal bowel sounds, without tenderness or organomegaly. EXTREMITIES: Revealed no clubbing, cyanosis or edema. NEUROLOGIC: Grossly intact. SKIN: Warm and dry. IMAGING DATA AND LABORATORY DATA: EKG revealed normal sinus rhythm with right bundle branch block with left axis deviation. Cardiac enzymes are negative x3. Hemoglobin 9.8, hematocrit 27.7, white count 3,800 and platelets 145,000. Sodium 132, potassium 4.6, chloride 96, BUN 35, and creatinine 5.35. IMPRESSION: 1. Atypical chest discomfort, pleuritic in nature. 2. End-stage renal disease. 3. Hypertension. 4. Hypercholesterolemia. 5. Diabetes. PLAN: Patient will undergo adenosine Cardiolite testing. Echocardiogram will also be performed with pleuritic chest discomfort. MTDD
--- NOTE | 2017-11-10 02:00 | HP ---
DATE OF ADMISSION: 11/08/2017 REASON FOR ADMISSION AND CHIEF COMPLAINT: Chest pain and shortness of breath. HISTORY OF PRESENT ILLNESS: Ms. Nicole is a 72-year-old female with past medical history of end-stage renal disease, on hemodialysis, hypertension, diabetes, who came because of chest pain, which is sharp in nature in the retrosternal area. She came from her dialysis. The pain started actually in the morning, got strong as the day progressed, and she passed out after dialysis 2 weeks ago. The patient had chest pain earlier this year in April, had a stress test at that time, and it was reported as negative for ischemia. So, patient decided to come to the hospital, because of worsening chest pain. It is sharp in nature, nonradiating, not associated with any diaphoresis. He then took some Tylenol with some relief of pain. The patient came by EMS, who gave her nitro, which has helped her somewhat. In the ER, the patient was evaluated and found to have elevated blood sugars more than 500. The patient received insulin 10 units and also with history of sublingual nitro for chest pain, we put on nitro paste and admitted for further evaluation and management. Her initial blood pressure was high around 190/80, but came down to 160/60. PAST MEDICAL HISTORY: 1. Insulin-dependent diabetes mellitus. 2. Hypertension. 3. End-stage renal disease, on hemodialysis. 4. Nephrotic range proteinuria. 5. Chronic anemia. 6. History of coronary artery disease. 7. History of GERD. PAST SURGICAL HISTORY: 1. Status post cholecystectomy. 2. Status post hysterectomy. 3. Status post appendectomy. 4. Status post left mastectomy. CURRENT MEDICATIONS: Levemir insulin 20 units daily, Renvela 1600 mg t.i.d., Humalog insulin 10 units before each meal, tramadol p.r.n. for pain 50 mg t.i.d. , vitamin D 5000 units daily, meclizine 25 mg b.i.d. ALLERGIES: DARVOCET. FAMILY HISTORY: Nothing of interest. SOCIAL HISTORY: The patient lives with her . No history of smoking. No history of alcohol intake. REVIEW OF SYSTEMS: Cardiovascular: No chest pain or shortness of breath. Respiratory: No fever or cough. Gastrointestinal: No nausea, vomiting, or abdominal pain. Genitourinary: No dysuria or hematuria. Central nervous system: No headache. Feels dizzy sometimes. PHYSICAL EXAMINATION: GENERAL: The patient is alert, awake, oriented x3. VITAL SIGNS: Temperature 98, pulse 75, respiratory rate 18, blood pressure 180/ 70. HEENT: Head is normocephalic, atraumatic. Pupils equal and reactive to light. Nasopharynx is pale and dry. Hard and soft palate, no lesions. SKIN: Turgor decreased. NECK: Supple. No JVD. LUNGS: Breath sounds diminished bilaterally. Percussion note dull, no rales, no whezing. HEART: S1 and S2, regular. ABDOMEN: Soft, no distention, no tenderness. Normal bowel sounds. RECTAL EXAM: Deferred. CENTRAL NERVOUS SYSTEM: No focal deficits. EXTREMITIES: A 2+ pitting edema. LABORATORY AND X-RAY FINDINGS: CBC with WBC 3.8, hemoglobin 9.8, hematocrit 27 , platelets 145. Metabolic panel: Sodium 132, potassium 4.6, chloride 96, CO2 of 27, BUN 35, creatinine 5.3, glucose 524. CK-MB 1.8. Troponin I less than 0.010. Chest x-ray stable, no acute process. EKG shows normal sinus rhythm, shows right bundle branch block, no acute ST-T-wave changes seen. ASSESSMENT: 1. Chest pain, rule out myocardial infarction. 2. Insulin-dependent diabetes mellitus, uncontrolled. 3. Fluid overload. 4. End-stage renal disease, on hemodialysis. 5. Hypertension, uncontrolled. 6. Chronic back pain. 7. Hyperlipidemia. 8. Chronic anemia. 9. History of nephrotic range proteinuria. PLAN: 1. Vital signs q.4 hours. 2. Activity: As tolerated. 3. Allergies: DARVOCET. 4. Hep-Lock. 5. Diet: Renal and ADA. 6. Troponin I q.6 hours x2. 7. Nitroglycerin p.r.n. 8. Continue home medications. 9. Accu-Cheks a.c. and at bedtime and sliding scale with mild regular insulin. 10. Cardiology consult. [facility]ITALZhao
[2017-11-10] MEDS: cloNIDine 0.1 MG TAB PO PRN ×2 (04:58→16:02)
[2017-11-10] MEDS ORDERED: cloNIDine 0.1 MG TAB PO SCH ×2 (09:00)
--- NOTE | 2017-11-10 12:19 | NM ---
CARDIAC SPECT WITH EJECTION FRACTION AND WALL MOTION: Date: 11/10/17 HISTORY: 72-year-old female with history of chest pain, history of coronary artery disease. Congestive heart f ailure, ESRD, hypertension, diabetes mellitus, and dyslipidemia. TECHNIQUE: This is an Adenosine sestamibi study. Patient was injected with 27.2 mCi technetium-99m sestamibi int ravenously for stress images and patient was injected with 9.5 mCi technetium-99m sestamibi intraven ously for resting images. FINDINGS: Multiple SPECT images in the short axis, vertical long axis, and horizontal long axis demonstrate no scan evidence for overt infarct or ischemia. TID: 1.16 LHR: 0.27 EDV: 87 mL EF: 61% MYOCARDIAL PERFUSION WALL MOTION: Wall motion is unremarkable. IMPRESSION: Unremarkable cardiac SPECT with ejection fraction and wall motion. No scan evidence for infarct or ischemia. POS: [facility]
[2017-11-10 13:08] VITALS: TEMP 97.8
--- NOTE | 2017-11-10 13:27 | PDOC.CTH ---
Cardiology Progress Note - Subjective The pt seen and examined. No overnight events. No cardiac complaints. - Objective Vital Signs Temp Pulse Resp BP BP Pulse Ox 11/10/17 13:00 97.8 F 63 16 156/69 H 100 11/10/17 08:20 71 12 164/70 H 11/10/17 04:58 184/79 H 11/10/17 04:00 97.7 F 65 17 184/79 H 99 Weight 171 lb 12.8 oz 11/09/17 11/10/17 11/11/17 06:59 06:59 06:59 Intake Total 0 1430 Output Total 0 2000 Balance 0 -570 - Physical Examination General/Neuro: alert & oriented x3 Neck: no JVD present Lungs: CTA Heart: RRR Abdomen: soft Extremities: other: (No edema) - Telemetry Telemetry Rhythm: SR 60s - Labs Result Diagrams: 11/08/17 20:25 11/08/17 19:32 Troponin/CKMB CK-MB (CK-2) 1.3 ng/mL (0-6.6) 11/09/17 17:12 Troponin I 0.013 ng/mL (< 0.028) 11/09/17 17:12 - Assessment/Plan 1. Atypical CP - Stress test today showed normal with EF 61%. The pt denied CP or discomfort in her chest, SOB or other cardiac complaints today. Order of Echo was cancelled since the pt had Echo in 04/2017 with EF 50-55% with mild diastolic dysfunction. The pt will have Echo as outpt if she is symptomatic. 2. HTN - stable with current meds 3. ESRD - HD on , , Wed; 4. DM type 2 - managed by PCP 5. Anemia - stable MAR reviewed * From Cardiac standpoint. the pt is stable to d/c home. The pt will f/u with Dr Smith' office within 1 month. The pt will have Echo as outpt if she is symptomatic. Review of Systems - Review of Systems Constitutional: reports: no symptoms reported EENTM: reports: no symptoms reported Respiratory: reports: no symptoms reported Cardiac (ROS): reports: no symptoms reported ABD/GI: reports: no symptoms reported : reports: no symptoms reported Musculoskeletal: reports: no symptoms reported Skin: reports: no symptoms reported
[2017-11-10] MEDS ORDERED: ADENOSINE 60 MG/20 ML VIAL ONE (13:47)
[2017-11-10] MEDS: Meclizine HCl 25 MG TAB PO SCH (14:15)
[2017-11-10] MEDS: Sevelamer Carbonate 800 MG TAB PO SCH ×2 (14:15→14:16)
[2017-11-10 16:57] VITALS: BP 169/71
--- NOTE | 2017-11-11 13:54 | DIS ---
DATE OF ADMISSION: 11/08/2017 DATE OF DISCHARGE: 11/10/2017 ADMITTING DIAGNOSES: 1. Chest pain, rule out myocardial infarction. 2. Insulin-dependent diabetes mellitus, uncontrolled. 3. Fluid overload. 4. End-stage renal disease on hemodialysis. 5. Hypertension, uncontrolled. 6. Chronic back pain. FINAL DIAGNOSES: 1. Chest pain, no evidence of acute myocardial infarction, negative Cardiolite stress test. 2. Insulin-dependent diabetes mellitus, uncontrolled, improved. 3. Fluid overload, improved. 4. End-stage renal disease on hemodialysis. 5. Hypertension, uncontrolled, improving. 6. Chronic back pain. 7. Hyperlipidemia. BRIEF SUMMARY OF HOSPITAL COURSE: Ms. Nicole is a 72-year-old female admitted because of chest pain. The patient was found to have elevated blood glucose levels. The patient was admitted t o rule out myocardial infarction and cardiac enzymes were done and they were unremarkable. Consultat ion done with Cardiology, was seen by Dr. Orona. He felt the patient is possibly having pleuritic chest pain, suggested a Cardiolite stress test and it was done and reported as negative for ischemia . Her blood sugars initially were high and the patient was started back on her insulin and sugar cam e down to 150. Blood pressure also improved. Chest pain resolved. In view of improvement, the delano ent is discharged. At the time of discharge, she was stable. Her vital signs were stable. Lungs we re clear. Heart sounds regular. Abdomen soft, nontender. Bowel sounds present. DISCHARGE MEDICATIONS: Include Levemir insulin 20 units daily, Humalog insulin 10 units before each meal, Renvela 1600 mg b.i.d., vitamin D 5000 units daily, meclizine 25 b.i.d., tramadol 50 b.i.d. p.r .n. and clonidine 0.1 every 2 days. The patient will continue with hemodialysis and ADA diet. FOLLOWUP: She will come for followup in 2 weeks.
--- NOTE | 2017-11-14 22:59 | EKG ---
Test Reason : STAT Blood Pressure : / mmHG Vent. Rate : 071 BPM Atrial Rate : 071 BPM P-R Int : 142 ms QRS Dur : 146 ms QT Int : 468 ms P-R-T Axes : 010 -45 -06 degrees QTc Int : 508 ms Normal sinus rhythm Right bundle branch block Left anterior fascicular block Bifascicular block Moderate voltage criteria for LVH, may be normal variant Abnormal ECG When compared with ECG of 08-NOV-2017 19:17, (Unconfirmed) T wave inversion no longer evident in Anterior leads Confirmed by Taylor PAEZ ([id number]) on 11/14/2017 10:59:20 PM Referred By: Confirmed By:Taylor PAEZ
== END 2017-11-10 16:42 | disposition home or self-care (01) ==
LOC: ERS 19:12 → ERHOLD 22:39 → 2NO 11-09 03:33
PROVIDERS: ADMIT Internal Medicine; ATTEND Internal Medicine
DX: R07.89 Other chest pain (principal); I12.0 Hypertensive chronic kidney disease with stage 5 chronic kidney disease or end stage renal disease; E11.22 Type 2 diabetes mellitus with diabetic chronic kidney disease; N18.6 End stage renal disease; D64.9 Anemia, unspecified; I25.10 Atherosclerotic heart disease of native coronary artery without angina pectoris; K21.9 Gastro-esophageal reflux disease without esophagitis; E87.70 Fluid overload, unspecified; E78.00 Pure hypercholesterolemia, unspecified; G89.29 Other chronic pain; M54.9 Dorsalgia, unspecified; Z99.2 Dependence on renal dialysis; Z79.4 Long term (current) use of insulin; Z79.899 Other long term (current) drug therapy; Z88.5 Allergy status to narcotic agent; Z79.52 Long term (current) use of systemic steroids; Z88.8 Allergy status to other drugs, medicaments and biological substances
CPT/HCPCS: 71045; 78452; 80053; 82550; 82553 ×3; 82962 ×2; 83690; 84484 ×3; 85025; 93005 ×2; 93017; 93306; 96372; 96374; 96375; 99285; A9500; G0378 ×2; Q4081; 36415; 36416; 90935; 93010; A4216; G0257; J0153; J1815; J2060

== ENCOUNTER 2018-01-15 15:26 | Emergency (ER) | payer MEDICARE ==
[2018-01-15 16:04] LABS: #Basophils 0.1 thou/uL (0.0-0.2); #Eosinphils 0.1 thou/uL (0.0-0.7); #Lymphocytes 1.2 thou/uL (1.20-3.40); #Monocytes 0.2 thou/uL (0.11-0.59); #Neutrophils 3.2 thou/uL (1.40-6.50); %Basophils 1.1 % (0.0-1.0); %Eosinophils 1.3 % (0.0-10.0); %Lymphocytes 24.7 % (21.0-51.0); %Monocytes 4.3 % (0.0-10.0); %Neutrophils 68.6 % (42.0-75.0); Hemoglobin 12.5 g/dL (12.0-16.0); Mean Corpuscular Hemoglobin 28.7 pg (27.0-31.0); Mean Corpuscular Volume 86.9 fL (78.0-98.0); Mean Platelet Volume 8.1 fL (7.4-10.4); Platelet Count 144 thou/uL (130-400); RBC Distribution Width 14.6 % (11.5-14.5); Red Blood Cell (RBC) Count 4.38 mill/uL (4.20-5.40); White Blood Cell (WBC) Count 4.7 thou/uL (4.8-10.8)
[2018-01-15 16:24] LABS: ALT (SGPT) 10 U/L (8-55); AST (SGOT) 16 U/L (5-34); Albumin 4.1 g/dL (3.4-4.8); Alkaline Phosphatase 74 U/L (40-150); Anion Gap 17 mmol/L (10-20); BUN (Urea Nitrogen) 15 mg/dL (9.8-20.1); Bilirubin, Total 0.7 mg/dL (0.2-1.2); Calc. Creatinine Clearance 0 mL/min (70-130); Carbon Dioxide 28 mmol/L (23-31); Chloride 94 mmol/L (98-107); Estimated GFR-MDRD 17; Globulin 4.1 g/dL (2.4-3.5); Glucose 167 mg/dL (80-115); Potassium 4.3 mmol/L (3.5-5.1); Protein, Total 8.2 g/dL (6.0-8.3); Sodium 135 mmol/L (136-145)
== END 2018-01-15 16:38 | disposition home or self-care (01) ==
LOC: ERS 15:26
DX: R42 Dizziness and giddiness (principal); E11.9 Type 2 diabetes mellitus without complications; E78.5 Hyperlipidemia, unspecified; I11.0 Hypertensive heart disease with heart failure; I50.9 Heart failure, unspecified; Z79.891 Long term (current) use of opiate analgesic; Z79.899 Other long term (current) drug therapy
CPT/HCPCS: 36415; 80053; 85025; 93005; 99284

== ENCOUNTER 2018-03-30 21:27 | Inpatient (IN) | payer MEDICARE ==
[2018-03-30 22:00] LABS: #Lymphocytes 1.4 thou/uL (1.20-3.40); #Monocytes 0.3 thou/uL (0.11-0.59); #Neutrophils 2.1 thou/uL (1.40-6.50); %Basophils 1.1 % (0.0-1.0); %Eosinophils 0.6 % (0.0-10.0); %Lymphocytes 36.3 % (21.0-51.0); %Monocytes 6.6 % (0.0-10.0); %Neutrophils 55.3 % (42.0-75.0); Hemoglobin 12.7 g/dL (12.0-16.0); Mean Corpuscular HGB CONC 33.1 g/dL (32.0-36.0); Mean Corpuscular Hemoglobin 29.4 pg (27.0-31.0); Mean Corpuscular Volume 88.8 fL (78.0-98.0); Mean Platelet Volume 7.9 fL (7.4-10.4); Platelet Count 154 thou/uL (130-400); RBC Distribution Width 14.4 % (11.5-14.5); Red Blood Cell (RBC) Count 4.32 mill/uL (4.20-5.40); White Blood Cell (WBC) Count 3.7 thou/uL (4.8-10.8)
--- NOTE | 2018-03-30 22:03 | CT ---
CT BRAIN 03/30/18 PROVIDED CLINICAL HISTORY: Slurred speech, facial droop and left sided weakness. FINDINGS: Comparison 10/22/17. The ventricular system is unchanged in size and morphology. There is no evidence for intracranial hem orrhage or mass effect. Chronic microvascular white matter ischemic changes are redemonstrated, simil ar to the prior study. The extracranial soft tissues and osseous structures demonstrate no acute find ings. IMPRESSION: No evidence for intracranial hemorrhage or mass effect. The findings communicated to Dr. Hurley at 9:58 p.m., 03/30/18. Code CR POS: [facility]
[2018-03-30 22:09] LABS: Prothrombin Time 13.1 SEC (12.0-14.7)
[2018-03-30 22:13] LABS: ALT (SGPT) 10 U/L (8-55); AST (SGOT) 17 U/L (5-34); Albumin 3.9 g/dL (3.4-4.8); Alkaline Phosphatase 78 U/L (40-150); Anion Gap 13 mmol/L (10-20); BUN (Urea Nitrogen) 22 mg/dL (9.8-20.1); Bilirubin, Total 0.7 mg/dL (0.2-1.2); CK (CPK) 104 U/L (29-168); Calc. Creatinine Clearance 0 mL/min (70-130); Calcium 9.6 mg/dL (7.8-10.44); Carbon Dioxide 32 mmol/L (23-31); Chloride 94 mmol/L (98-107); Estimated GFR-MDRD 9; Globulin 3.5 g/dL (2.4-3.5); Glucose 326 mg/dL (80-115); Potassium 3.8 mmol/L (3.5-5.1); Protein, Total 7.4 g/dL (6.0-8.3); Sodium 135 mmol/L (136-145)
[2018-03-30 22:16] LABS: CKMB 2.6 ng/mL (0-6.6); Troponin I 0.019 ng/mL (< 0.028)
--- NOTE | 2018-03-30 22:25 | CT ---
CT ANGIOGRAM GREAT VESSELS NECK WITH IV CONTRAST AND 3D MIP RECONSTRUCTIONS CT ANGIOGRAM BRAIN WITH IV CONTRAST AND 3D MIP RECONSTRUCTIONS 03/30/18 PROVIDED CLINICAL HISTORY: Facial droop, left sided weakness and slurred speech. FINDINGS: There is a normal, three-vessel configuration of the great vessels at the arch. The subclavian, commo n carotid, innominate, internal carotid and vertebral arteries demonstrate no significant stenosis. T he right vertebral artery is dominant. The left vertebral artery terminates in PICA. The intracranial circulation demonstrates no focal vessel stenosis, branch occlusion, or aneurysm wit hin the limitations of this technique. IMPRESSION: 1. No evidence for a significant stenosis involving either internal carotid artery. 2. No evidence for focal vessel stenosis, branch occlusion, or aneurysm within the limitations o f this technique involving the intracranial circulation. POS: [facility]
[2018-03-31 00:56] LABS: Bilirubin Negative (Negative); Blood, Urine Small (Negative); Clarity CLEAR (Clear); Glucose, Urine (Dipstick) 500 mg/dL (Negative); Leukocyte Trace (Negative); Nitrite Negative (Negative); Protein, Urine (Dipstick) 300 mg/dL (Neg-Trace); Specific Gravity, Urine 1.018 (1.002-1.036); Urobilinogen 0.2 mg/dL (0.2-1.0)
[2018-03-31 00:58] LABS: Bacteria/HPF None Seen HPF (None Seen); Hyaline Casts/LPF 0-3 HYALINE CAST LPF (0-3 Hyaline); Pathc Cast-AUWi Flag 0.14 (0-2.49); Squamous Epithelial 0-3 HPF (0-3)
[2018-03-31] MEDS ORDERED: Aspirin 300 MG Suppository ONE (02:53)
[2018-03-31] MEDS ORDERED: Acetaminophen 325 MG TAB PO PRN (03:19)
[2018-03-31] MEDS ORDERED: Ondansetron PF 4 MG/2 ML Vial IVP PRN (03:19)
[2018-03-31] MEDS ORDERED: Ondansetron ODT 4 MG TAB SL PRN (03:19)
[2018-03-31] MEDS ORDERED: Acetaminophen 650 MG Suppository ONE (09:57)
--- NOTE | 2018-03-31 12:44 | CON ---
DATE OF CONSULTATION: HISTORY: Ms. Nicole is a 72-year-old female with ESRD and admitted for left-sided weakness, slurred speech. She is being admitted for possible CVA. We are now being consulted for her maintenance hemodialysis. The patient was apparently well until about one day prior to admission. She had some generalized weakness and was said to have fallen. In addition, she developed slurred speech and for that reason, went to the ER. In the ER, she was considered to have developed a CVA. REVIEW OF SYSTEMS: Positive for left-sided weakness. Positive for left facial droop as well as slurred speech. No chest pain. No shortness or breath. No nausea. No vomiting. No syncopal episode. No productive cough. No fever or chills. No diarrhea. No constipation. No dysuria. No abdominal pain. No shortness of breath. Appetite and energy level are fair. Positive for left- sided weakness. No headache. No diplopia. MEDICATIONS: Currently on; 1. Tylenol 650 mg p.o. q4. p.r.n. 2. Zofran 4 mg sublingual p.r.n. PAST MEDICAL HISTORY: Includes; 1. ESRD from presumed diabetic nephropathy - on hemodialysis Wednesday, , and Wednesday. 2. Coronary artery disease. 3. Type 2 diabetes mellitus. 4. Hypertension. 5. Chronic anemia. 6. Gout. PAST SURGICAL HISTORY: 1. Status post bilateral tubal ligation. 2. Status post cuffed dialysis catheter placement. 3. Status post AV fistula placement. 4. Status post cardiac cath. 5. Status post coronary artery stent placement. 6. Status post appendectomy. 7. Status post colonoscopy_. 8. Status post left nephrectomy. 9. Status post cholecystectomy. ALLERGIES: NAPROSYN. TRAUMA: 1. Status post collarbone fracture. 2. Status post hip fracture. 3. Status post right leg fracture. IMMUNIZATION: Up-to-date. HOSPITALIZATIONS: Please see past medical history. SOCIAL HISTORY: The patient lives in [place], , 6 children. 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 Sedentary lifestyle. No smoking. No alcohol. Education, high school. FAMILY HISTORY: No family history of ESRD. PHYSICAL EXAMINATION: VITAL SIGNS: Blood pressure is noted at 140/70 and heart rate is 70. GENERAL: Awake, alert, and comfortable, not in distress. SKIN: Adequate turgor. HEENT: Pinkish conjunctivae. Anicteric sclerae. Left facial weakness. HEART: Normal sinus rhythm. No murmurs, gallops, or rubs. ABDOMEN: Globular, soft, and nontender. No masses. EXTREMITIES: No edema. No deformities. Left-sided weakness. LUNGS: Clear breath sounds. No wheezing. No crackles. LABORATORY DATA: Laboratories of March 30, 2018, white count 3.7 and hemoglobin 12.7. Sodium 135, potassium 3.8, chloride 94, carbon dioxide 32, BUN 22, creatinine 4.66, glucose 326, and calcium 9.6. DIAGNOSTIC DATA: CT scan of the head, official reading is pending. ASSESSMENT AND PLAN: 1. End-stage renal disease, stable. Review of the Kt/V suggests she is adequately dialyzed with the current dialysis regimen. My plan is to continue her current hemodialysis regimen of 3-1/2 hours with fluid removal as tolerated. 2. Left-sided weakness/cerebrovascular accident - supportive care. Home medications suggest that the patient has been taking her aspirin in regular basis. Neurology consultation has been done 3. Agree with current management. Job ID: [id number] MTDD
[2018-03-31 18:35] VITALS: BMI 25.8
[2018-03-31] MEDS ORDERED: Dextrose 50% Abboject 50 ML SYRINGE IVP PRN (19:20)
[2018-03-31] MEDS ORDERED: Dextrose 5% in Water 1,000 ML IV PRN (19:20)
[2018-03-31] MEDS: Insulin Regular 300 UNITS/3 ML VIAL SC PRN (22:01)
[2018-03-31] MEDS ORDERED: traMADol HCl 50 MG TAB PO PRN (22:57)
[2018-03-31] MEDS ORDERED: Insulin Glargine 20 UNITS in Pre-Filled Syringe 1 EACH SC SCH (23:30)
--- NOTE | 2018-04-01 01:25 | CON ---
DATE OF CONSULTATION: 03/31/2018 CONSULTING PHYSICIAN: Dr. Love. IMPRESSION: Probable small-vessel stroke secondary to underlying hypertension and diabetes. PLAN: 1. Aspirin 81 mg per day. 2. Continue statin. 3. Carotid ultrasound. HISTORY OF PRESENT ILLNESS: Ms. Nicole is a 72-year-old female with end-stage renal disease, diabetes, hypertension, and questionable cardiac issues. She presented with left-sided weakness, which was not brought in acutely. Her noted she was having some trouble walking and he put her to bed. The next day when they got up to make tamales, he noticed she could not use her left hand to help out in the kitchen. They decided to come to the hospital for evaluation. Her CT and CTA were both unremarkable. Her symptoms have improved a bit since yesterday. She denies any past stroke history. PAST MEDICAL HISTORY: As listed above. ALLERGIES: DARVOCET AND MORPHINE. SOCIAL HISTORY: No tobacco use. FAMILY HISTORY: Noncontributory. REVIEW OF SYSTEMS: No complaint of headache, nausea, vomiting, vertigo, or difficulty swallowing. Positive for chest pain in the past. No shortness of breath. PHYSICAL EXAMINATION: GENERAL: She is a slightly overweight elderly lady, sitting on dialysis. HEENT: Pupils are equal and reactive. Conjunctivae clear. Oropharynx clear. NECK: Supple. No lymphadenopathy. EXTREMITIES: No cyanosis. NEUROLOGIC: She is alert and cooperative. Her speech is fluent and clear. Cranial nerve exam showed a left facial droop. Sensation was intact. Motor exam showed antigravity strength in the left arm and leg with slowed rapid alternating movements. Sensation again was intact in the extremities. No tremor. Dysmetria is present. Gait was not tested. LABORATORY STUDIES: Unremarkable CBC, coags with a chemistry panel showing a BUN of 22 and a creatinine of 4.66. Glucose is 303. Urinalysis was unremarkable other than elevated protein and glucose. SUMMARY: A 72-year-old woman with hypertension and diabetes, who presents with a partial paralysis at the left side without sensory deficits suggesting a small vessel stroke on the right. Start antiplatelet therapy and rule out any carotid issues. She has had a cardiac workup by Dr. Smith two months ago and apparently nothing remarkable was found and we could probably forego testing in this area. Job ID: [id number]
[2018-04-01] MEDS: cloNIDine 0.1 MG TAB PO PRN ×2 (05:12→15:40)
--- NOTE | 2018-04-01 07:30 | PRG ---
DATE OF SERVICE: 04/01/2018 RENAL MEDICINE SUBJECTIVE: Ms. Nicole is a 72-year-old female with ESRD and being followed by [facility] for her maintenance hemodialysis. She underwent hemodialysis yesterday to shorten her treatment due to agitation. This morning, no new complaints. She still is feeling weak. She has been evaluated by Neurology and the feeling is that she may have had a probable small vessel stroke secondary to her hypertension/diabetes mellitus. Recommendation is for her to start antiplatelet therapy. No other complaints today. No chest pain or shortness of breath. OBJECTIVE: VITAL SIGNS: Blood pressure is 200/79, heart rate 73, respiratory rate 16, temperature 98, and pulse ox 100%. GENERAL: Sleepy, but arousable, not in distress. SKIN: Adequate turgor. HEENT: Pinkish conjunctivae. Anicteric sclerae. NECK: No neck masses. No carotid bruits. No JVD. CHEST: No deformities. LUNGS: Clear, decreased breath sounds. HEART: Normal sinus rhythm. No murmurs. No gallops. No rubs. ABDOMEN: Globular, soft, nontender. No masses. EXTREMITIES: No edema. No deformities. NEUROLOGIC: Left-sided weakness. MEDICATIONS: Medications of April 01, 2018, were reviewed. LABORATORY DATA: Laboratories of March 30, 2018; white count 3.7, hemoglobin 12.7. March 31, 2018; glucose 227. March 30, 2018; BUN 22, creatinine 4.66, and potassium 3.8. ASSESSMENT AND PLAN: 1. Status post cerebrovascular accident - supportive care. Neurology is following. Start antiplatelet therapy. 2. Hypertension. We will add nifedipine 30 mg XL tablet once a day. 3. End-stage renal disease, stable. Continue current hemodialysis regimen. Fluid removal only as tolerated. No changes to be made with the current dialysis regimen. Job ID: [id number]
--- NOTE | 2018-04-01 07:56 | HP ---
CHIEF COMPLAINT: Came with left-sided weakness, left facial droop and slurred speech. HISTORY OF PRESENT ILLNESS: Ms. Nicole is a 72-year-old female with past medical history of diabetes, hypertension, and end-stage renal disease; has not been eating well for the last 3 days, but yesterday she felt very weak and the patient's speech was slurred, according to the family and there was weakness on the left side, unable to stand or walk; she had left facial droop as well. The patient also has been having multiple falls, so the patient came to the emergency room where she was evaluated and found to have left-sided weakness. CT of the brain was done and they were unremarkable. The patient is admitted for further evaluation and management. PAST MEDICAL HISTORY: 1. End-stage renal disease, on hemodialysis. 2. Insulin-dependent diabetes mellitus. 3. Hypertension. 4. Hyperlipidemia. 5. Nephrotic-range proteinuria. 6. Chronic anemia. 7. History of coronary artery disease. 8. History of GERD. PAST SURGICAL HISTORY: 1. Status post hysterectomy. 2. Status post cholecystectomy. 3. Status post appendectomy. 4. Status post left mastectomy. CURRENT MEDICATIONS: The patient is on, 1. Levemir insulin 20 units daily. 2. Meclizine 25 mg b.i.d. 3. Renvela 1600 mg t.i.d. 4. Clonidine 0.1 q.2 days. 5. Tramadol p.r.n. 6. Humalog insulin 10 units before each meal. 7. Vitamin D 5000 units daily. ALLERGIES: DARVOCET. FAMILY HISTORY: Nothing contributory. SOCIAL HISTORY: The patient lives with family. No history of smoking. No history of alcohol. REVIEW OF SYSTEMS: CARDIOVASCULAR: No chest pain. No shortness of breath. RESPIRATORY: No fever or cough. GASTROINTESTINAL: No nausea, vomiting, or abdominal pain. CENTRAL NERVOUS SYSTEM: Feels dizzy and weak. PHYSICAL EXAMINATION: GENERAL: The patient is alert, awake, and oriented x2. VITAL SIGNS: Temperature 98, pulse 78, respiratory rate 18, blood pressure 171/78. HEENT: Head is normocephalic and atraumatic. Pupils are equal and reactive. Nasopharynx is pale and dry. Hard and soft palate, no lesions. SKIN: Turgor decreased. NECK: Supple. No JVD. LUNGS: Bilateral air entry with no rales, no rhonchi. HEART: S1 and S2 regular. ABDOMEN: Soft. No distension. No guarding. No rigidity. Bowel sounds present. RECTAL: Deferred. CENTRAL NERVOUS SYSTEM: The patient is alert, awake, and oriented . Speech is clear now. There is left facial droop and motor system power 3 to 4/5 on the left upper extremity and left lower extremity and, 4/5 in right upper and lower extremities. Deep tendon reflexes 2+ bilaterally. Plantars downgoing. Sensory intact. LABORATORY DATA: CBC shows WBC 3.7, hemoglobin 12 and hematocrit 38, platelets 154. Metabolic panel: Sodium 135, potassium 3.8, chloride 95, CO2 of 32, BUN of 22, creatinine of 4.6, glucose 326. CK-MB 2.6, troponin I 0.019. Urinalysis is negative. Prothrombin time 13, INR 1. CT of the brain unremarkable. CT of the [place]; no evidence of any significant stenosis involving either internal carotid artery. EKG shows wide QRS rhythm. No acute ST-T changes seen. ASSESSMENT: 1. Left-sided weakness with left facial droop and slurred speech, rule out cerebrovascular accident. 2. Hypertension, controlled. 3. Diabetes mellitus. 4. End-stage renal disease. 5. Generalized weakness. 6. Chronic anemia. 7. History of coronary artery disease. PLAN: 1. Vital signs every 4 hours. 2. Activity: As tolerated. 3. Allergies: Darvocet. 4. Diet: Renal and ADA. 5. Hep-Lock. 6. Continue home medications. 7. Accu-Chek a.c. and at bedtime. Sliding scale mild with regular insulin. 8. Neurology consult. Job ID: [id number]
[2018-04-01] MEDS: Sevelamer Carbonate 800 MG TAB PO SCH ×3 (09:33→17:53)
[2018-04-01] MEDS: NIFEdipine XL 30 MG TAB PO SCH (09:34)
[2018-04-01] MEDS: Insulin Regular 300 UNITS/3 ML VIAL SC PRN ×2 (11:34→17:54)
[2018-04-01] MEDS: Insulin Glargine 20 UNITS in Pre-Filled Syringe 1 EACH SC SCH (20:51)
[2018-04-01] MEDS: Atorvastatin Calcium 10 MG TAB PO SCH (20:51)
[2018-04-02] MEDS: HumaLOG 300 UNITS/3 ML VIAL SC SCH ×2 (00:28→21:22)
[2018-04-02] MEDS ORDERED: Dextrose 50% Abboject 50 ML SYRINGE ONE (03:45)
[2018-04-02] MEDS: NIFEdipine XL 30 MG TAB PO SCH (08:52)
[2018-04-02] MEDS: Sevelamer Carbonate 800 MG TAB PO SCH ×3 (08:52→18:01)
[2018-04-02] MEDS: cloNIDine 0.1 MG TAB PO SCH (08:53)
--- NOTE | 2018-04-02 11:48 | PRG ---
DATE OF SERVICE: 04/02/2018 SUBJECTIVE: Ms. Nicole is a 72-year-old female with ESRD - on maintenance hemodialysis and admitted for CVA with left-sided weakness. Neurology is following the patient. She is relatively stable. No new complaints today. No chest pain or shortness of breath. She is currently undergoing hemodialysis at the present time. Fluid removal as tolerated. Please note, I have to shorten her dialysis last due to confusion and agitation. OBJECTIVE: VITAL SIGNS: Blood pressure is 155/74, heart rate 66, respiratory rate 16, and pulse ox 98%. GENERAL: Awake and lethargic, not in overt distress. SKIN: Adequate turgor. HEENT: Pinkish conjunctivae. Anicteric sclerae. No neck mass. No carotid bruits. No JVD. CHEST: No deformities. LUNGS: Clear breath sounds. No wheezing. HEART: Normal sinus rhythm. No murmur. No gallops. No rubs. ABDOMEN: Globular, soft, nontender. No masses. EXTREMITIES: No edema. No deformities. NEUROLOGIC: Left-sided weakness and occasional confusion. MEDICATIONS: Medications of April 02, 2018, were reviewed. LABORATORY DATA: Laboratories of April 02, 2018, glucose 157. On March 30, 2018, sodium 135, potassium 3.8, chloride 94, carbon dioxide 32, BUN 22, creatinine 4.66, AST 17, and ALT 10. On March 30, 2018, hemoglobin 12.7. ASSESSMENT AND PLAN: 1. End-stage renal disease, stable. We will continue current Wednesday, , and Wednesday hemodialysis. The patient is scheduled for 3-1/2-hour hemodialysis with fluid removal today. Minimal heparin use at the present time. 2. Status post cerebrovascular accident. Continue supportive care. Urology is following. Consider rechecking basic metabolic panel and CBC in a.m. Job ID: [id number]
[2018-04-02 17:03] LABS: Cardiac Risk 5.2 (Less than 4.5)
[2018-04-02] MEDS: Insulin Regular 300 UNITS/3 ML VIAL SC PRN (17:04)
[2018-04-02] MEDS: Atorvastatin Calcium 10 MG TAB PO SCH (21:22)
[2018-04-02] MEDS: Insulin Glargine 20 UNITS in Pre-Filled Syringe 1 EACH SC SCH (21:23)
[2018-04-03 06:10] LABS: #Eosinphils 0.1 thou/uL (0.0-0.7); #Lymphocytes 1.6 thou/uL (1.20-3.40); #Monocytes 0.3 thou/uL (0.11-0.59); #Neutrophils 2.3 thou/uL (1.40-6.50); %Basophils 0.1 % (0.0-1.0); %Lymphocytes 36.6 % (21.0-51.0); %Monocytes 7.4 % (0.0-10.0); %Neutrophils 53.9 % (42.0-75.0); Hemoglobin 12.9 g/dL (12.0-16.0); Mean Corpuscular HGB CONC 32.6 g/dL (32.0-36.0); Mean Corpuscular Hemoglobin 28.7 pg (27.0-31.0); Mean Corpuscular Volume 88.1 fL (78.0-98.0); Mean Platelet Volume 7.6 fL (7.4-10.4); Platelet Count 152 thou/uL (130-400); White Blood Cell (WBC) Count 4.2 thou/uL (4.8-10.8)
[2018-04-03 06:24] LABS: Anion Gap 9 mmol/L (10-20); BUN (Urea Nitrogen) 10 mg/dL (9.8-20.1); Calc. Creatinine Clearance 15 mL/min (70-130); Calcium 9.3 mg/dL (7.8-10.44); Carbon Dioxide 32 mmol/L (23-31); Chloride 98 mmol/L (98-107); Estimated GFR-MDRD 11; Glucose 109 mg/dL (80-115); Potassium 3.3 mmol/L (3.5-5.1); Sodium 136 mmol/L (136-145)
[2018-04-03] MEDS: Sevelamer Carbonate 800 MG TAB PO SCH ×4 (09:50→18:02)
[2018-04-03] MEDS: NIFEdipine XL 30 MG TAB PO SCH (09:51)
--- NOTE | 2018-04-03 10:07 | PRG ---
DATE OF SERVICE: SUBJECTIVE: Ms. Nicole is a 72-year-old female with ESRD-on maintenance hemodialysis and admitted for CVA. She underwent dialysis yesterday without any difficulty. This morning, she is feeling better. She still has this left residual weakness with some slight facial asymmetry. No chest pain or shortness of breath. OBJECTIVE: VITAL SIGNS: Blood pressure 166/67, heart rate 66, respiratory rate 16, temperature 98, and pulse ox 98%. GENERAL: Noted to be awake, sitting comfortable, not in distress. SKIN: Adequate turgor. HEENT: Pinkish conjunctivae. Anicteric sclerae. No neck mass. No carotid bruits. No JVD. Left facial weakness. LUNGS: Clear breath sounds. No wheezing. No crackles. HEART: Normal sinus rhythm. ABDOMEN: Globular, soft, and nontender. No masses. EXTREMITIES: No edema. MEDICATIONS: Medications of 04/03/2018 were reviewed. LABORATORY DATA: Laboratories of 04/03/2018; white count 4.2, hemoglobin 12.9. Sodium 136, potassium 3.3, chloride 98, carbon dioxide 32, BUN 10, creatinine 3.9, calcium 9.3. ASSESSMENT AND PLAN: 1. Status post cerebrovascular accident - left-sided weakness. Continue physical therapy. Continue supportive care. 2. End-stage renal disease, stable. We will continue 3 times a week hemodialysis regimen. This patient is scheduled for another dialytic intervention in a.m. 3. Agree with current management. Recheck basic metabolic in a.m. Job ID: [id number]
[2018-04-03] MEDS: Insulin Regular 300 UNITS/3 ML VIAL SC PRN (13:24)
[2018-04-03] MEDS: HumaLOG 300 UNITS/3 ML VIAL SC SCH (18:38)
[2018-04-03] MEDS: Insulin Glargine 20 UNITS in Pre-Filled Syringe 1 EACH SC SCH (20:40)
[2018-04-03] MEDS: Atorvastatin Calcium 10 MG TAB PO SCH (20:40)
[2018-04-03] MEDS: diphenhydrAMINE 25 MG CAP PO PRN (20:40)
[2018-04-04 05:27] LABS: Anion Gap 15 mmol/L (10-20); BUN (Urea Nitrogen) 16 mg/dL (9.8-20.1); Calc. Creatinine Clearance 12 mL/min (70-130); Calcium 9.4 mg/dL (7.8-10.44); Carbon Dioxide 28 mmol/L (23-31); Chloride 96 mmol/L (98-107); Estimated GFR-MDRD 8; Glucose 125 mg/dL (80-115); Potassium 3.7 mmol/L (3.5-5.1); Sodium 135 mmol/L (136-145)
--- NOTE | 2018-04-04 10:25 | PRG ---
DATE OF SERVICE: 04/04/2018 RENAL MEDICINE SUBJECTIVE: Ms. Nicole is a 72-year-old female with ESRD - on maintenance hemodialysis, admitted for CVA. Doing well. Earlier today, she had some nausea. Denies any chest pain or shortness of breath. She is currently undergoing dialysis. Fluid removal will be done only as tolerated. I am at the bedside supervising her dialysis. OBJECTIVE: VITAL SIGNS: Blood pressure 136/63, heart rate 90, respiratory rate 18, temperature 98.1, and pulse ox 98%. GENERAL: Awake, alert, comfortable, not in distress. SKIN: Adequate turgor. HEENT: She has pinkish conjunctivae. Anicteric sclerae. No neck mass. No carotid bruits. No JVD. Positive for left facial weakness. LUNGS: Clear breath sounds. No wheezing. No crackles. HEART: Normal sinus rhythm. No murmur. No gallops. No rubs. ABDOMEN: Globular, soft, and nontender. No masses. EXTREMITIES: No edema. No deformities. NEUROLOGIC: The patient has left-sided weakness with left facial asymmetry. MEDICATIONS: Medications of April 04, 2018, reviewed. LABORATORY DATA: Laboratories of April 03, 2018, white count 4.2 and hemoglobin 12.9. On April 04, 2018, sodium 135, potassium 3.7, chloride 96, carbon dioxide 28, BUN 16, creatinine 5.17, and calcium 9.4. ASSESSMENT AND PLAN: 1. Mild hypokalemia, resolved. Adjust potassium bath in the dialysis unit. 2. End-stage renal disease, stable. Tolerating current hemodialysis regimen. We plan to do a 3 times a week hemodialysis regimen with this patient. 3. Status post cerebrovascular accident. Continue physical therapy. Job ID: [id number]
[2018-04-04] MEDS: Sevelamer Carbonate 800 MG TAB PO SCH ×3 (14:44→17:02)
[2018-04-04] MEDS: HumaLOG 300 UNITS/3 ML VIAL SC SCH ×2 (14:47→17:04)
[2018-04-04] MEDS: cloNIDine 0.1 MG TAB PO SCH (16:58)
[2018-04-04] MEDS: NIFEdipine XL 30 MG TAB PO SCH (17:03)
[2018-04-04] MEDS ORDERED: Polyethylene Glycol 3350 17 GM Packet PO PRN (18:05)
[2018-04-04] MEDS: Insulin Glargine 20 UNITS in Pre-Filled Syringe 1 EACH SC SCH (21:30)
[2018-04-04] MEDS: Atorvastatin Calcium 10 MG TAB PO SCH (21:36)
[2018-04-04] MEDS: diphenhydrAMINE 25 MG CAP PO PRN (21:37)
[2018-04-05] MEDS: diphenhydrAMINE 25 MG CAP PO PRN (04:14)
[2018-04-05] MEDS: Sevelamer Carbonate 800 MG TAB PO SCH ×3 (09:56→18:32)
[2018-04-05] MEDS: Polyethylene Glycol 3350 17 GM Packet PO SCH (09:56)
[2018-04-05] MEDS: NIFEdipine XL 30 MG TAB PO SCH (09:57)
[2018-04-05] MEDS ORDERED: cloNIDine 0.1 MG TAB PO SCH (10:15)
--- NOTE | 2018-04-05 11:30 | PRG ---
DATE OF SERVICE: 04/05/2018 SERVICE: Renal Medicine. SUBJECTIVE: Ms. Nicole is a 72-year-old female with ESRD and followed up by the Renal Service for maintenance hemodialysis. She underwent dialysis yesterday. No new complaints today. She is undergoing PT for her CVA. No complaints of chest pain or shortness of breath. OBJECTIVE: VITAL SIGNS: Blood pressure 128/66, heart rate 100, respiratory rate 20, temperature 99, and pulse ox 97%. GENERAL: Noted to be awake, not in distress. SKIN: Adequate turgor. HEENT: She has pinkish conjunctivae. Anicteric sclerae. No neck mass. No carotid bruits. No JVD. CHEST: No deformities. LUNGS: Clear breath sounds. No wheezing. No crackles. HEART: Normal sinus rhythm. No murmurs, gallops, or rubs. ABDOMEN: Globular, soft, and nontender. No masses. EXTREMITIES: No edema. No deformities. NEUROLOGICAL: Left-sided weakness, left facial weakness. MEDICATIONS: Medications of April 05, 2018 was reviewed. LABORATORY DATA: Laboratories of April 03, 2018, white count 4.2 and hemoglobin 12.9. On April 04, 2018; sodium 135, potassium 3.7, chloride 96, carbon dioxide 28, BUN 16, creatinine 5.17, and calcium 9.4. ASSESSMENT AND PLAN: 1. End-stage renal disease, stable. No indication for any emergent dialysis. Continue 3 times a week in the dialysis. My next dialysis with this patient will be 2 days from today. 2. Status post cerebrovascular accident. Continue supportive care. Currently on antithrombotic therapy. 3. Overall prognosis remains guarded. Job ID: [id number]
--- NOTE | 2018-04-05 12:28 | EKG ---
Test Reason : Blood Pressure : / mmHG Vent. Rate : 074 BPM Atrial Rate : 038 BPM P-R Int : 000 ms QRS Dur : 150 ms QT Int : 466 ms P-R-T Axes : 000 -53 012 degrees QTc Int : 517 ms Wide QRS rhythm Right bundle branch block Left anterior fascicular block Bifascicular block Minimal voltage criteria for LVH, may be normal variant Abnormal ECG Confirmed by PERNELL BENITES ([id number]), film editor supervisor BRANDAN FERRELL ([id number]) on 04/05/2018 12:28:20 PM Referred By: Confirmed By:PERNELL BENITES
[2018-04-05] MEDS: HumaLOG 300 UNITS/3 ML VIAL SC SCH ×2 (13:56→18:33)
[2018-04-05] MEDS: Insulin Glargine 20 UNITS in Pre-Filled Syringe 1 EACH SC SCH (20:48)
[2018-04-05] MEDS: Atorvastatin Calcium 10 MG TAB PO SCH (20:49)
[2018-04-06 05:47] LABS: #Basophils 0.1 thou/uL (0.0-0.2); #Eosinphils 0.1 thou/uL (0.0-0.7); #Lymphocytes 1.8 thou/uL (1.20-3.40); #Monocytes 0.4 thou/uL (0.11-0.59); #Neutrophils 2.2 thou/uL (1.40-6.50); %Basophils 1.5 % (0.0-1.0); %Lymphocytes 39.5 % (21.0-51.0); %Monocytes 8.8 % (0.0-10.0); %Neutrophils 48.3 % (42.0-75.0); Hemoglobin 14.2 g/dL (12.0-16.0); Mean Corpuscular HGB CONC 32.9 g/dL (32.0-36.0); Mean Corpuscular Volume 88.4 fL (78.0-98.0); Mean Platelet Volume 8.3 fL (7.4-10.4); Platelet Count 129 thou/uL (130-400); RBC Distribution Width 14.8 % (11.5-14.5); Red Blood Cell (RBC) Count 4.89 mill/uL (4.20-5.40); White Blood Cell (WBC) Count 4.6 thou/uL (4.8-10.8)
[2018-04-06 06:08] LABS: Anion Gap 15 mmol/L (10-20); BUN (Urea Nitrogen) 27 mg/dL (9.8-20.1); Calc. Creatinine Clearance 10 mL/min (70-130); Calcium 9.6 mg/dL (7.8-10.44); Carbon Dioxide 27 mmol/L (23-31); Chloride 96 mmol/L (98-107); Estimated GFR-MDRD 7; Glucose 167 mg/dL (80-115); Potassium 4.5 mmol/L (3.5-5.1); Sodium 133 mmol/L (136-145)
[2018-04-06] MEDS: Polyethylene Glycol 3350 17 GM Packet PO SCH (08:23)
[2018-04-06] MEDS: Sevelamer Carbonate 800 MG TAB PO SCH ×3 (08:23→17:58)
[2018-04-06] MEDS: cloNIDine 0.1 MG TAB PO SCH (08:25)
[2018-04-06] MEDS: NIFEdipine XL 30 MG TAB PO SCH (08:26)
--- NOTE | 2018-04-06 09:38 | PRG ---
DATE OF SERVICE: 04/06/2018 SERVICE: Renal Medicine. SUBJECTIVE: Ms. Nicole is a 72-year-old female with ESRD - on maintenance hemodialysis and admitted for left-sided CVA. No other complaints today. No chest pain or shortness of breath. She still has this left-sided weakness. She is undergoing physical therapy. OBJECTIVE: VITAL SIGNS: Blood pressure is 145/74, heart rate 77, respiratory rate is 22, temperature 98.2, and pulse ox is 100%. GENERAL: Noted to be awake, alert, supine, and comfortable, not in distress. SKIN: Adequate turgor. HEENT: She has a pinkish conjunctivae. Anicteric sclerae. NECK: No neck mass. No carotid bruits. No JVD. CHEST: No deformities. LUNGS: Clear breath sounds. No wheezing. No crackles. HEART: Normal sinus rhythm. No murmurs, gallops, or rubs. ABDOMEN: Globular, soft, nontender. No masses. EXTREMITIES: No edema. NEUROLOGIC: Left-sided weakness, left facial weakness. MEDICATIONS: Medications of April 06, 2018, were reviewed. LABORATORY DATA: Laboratories of April 06, 2018, sodium 133, potassium 4.5, chloride 96, carbon dioxide 27, BUN 27, creatinine 6.02, glucose 167, and calcium 9.6. White count 4.6 and hemoglobin 14.2. ASSESSMENT AND PLAN: 1. End-stage renal disease, stable. No indication for any dialytic intervention. Continue 3 times a week hemodialysis with fluid removal only as tolerated. 2. Chronic anemia - hemoglobin is noted to be within normal. No indication for any Epogen. 3. Status post left-sided cerebrovascular accident - supportive care. Awaiting rehab evaluation. 4. Agree with current management. Job ID: [id number]
[2018-04-06] MEDS: HumaLOG 300 UNITS/3 ML VIAL SC SCH ×2 (13:19→18:31)
[2018-04-06] MEDS: Atorvastatin Calcium 10 MG TAB PO SCH (20:31)
[2018-04-06] MEDS: Insulin Glargine 20 UNITS in Pre-Filled Syringe 1 EACH SC SCH (20:31)
--- NOTE | 2018-04-07 09:40 | PRG ---
DATE OF SERVICE: 04/07/2018 SUBJECTIVE: Ms. Nicole is a 72-year-old female with ESRD on maintenance hemodialysis, was admitted for CVA with left-sided weakness. Stable for the last several days, awaiting rehab input. She is currently undergoing dialysis. I am at the bedside, supervising her dialysis. The patient denies any chest pain or shortness of breath. OBJECTIVE: VITAL SIGNS: Blood pressure 140/65, heart rate 79, respiratory rate 18, temperature 99.2, pulse ox 95%. GENERAL: Awake, alert, comfortable, not in overt distress. SKIN: Adequate turgor. HEENT: She has a pinkish conjunctivae. Anicteric sclerae. NECK: No neck mass. No carotid bruits. No JVD. CHEST: No deformities. LUNGS: Clear breath sounds. No wheezing. No crackles. HEART: Normal sinus rhythm. No murmur. No gallops. No rubs. ABDOMEN: Globular, soft, and nontender. No masses. EXTREMITIES: No edema. No deformities. NEUROLOGIC: Moving all extremities, except for left-sided weakness. She has a left facial asymmetry. MEDICATIONS: Medications of April 07, 2018, reviewed. LABORATORY DATA: Laboratories of April 06, 2018, white count 4.6 and hemoglobin 14.2. On April 07, 2018, glucose 116. April 06, 2018, potassium 4.5, BUN 27, and creatinine 6.02. ASSESSMENT AND PLAN: 1. End-stage renal disease, stable. We will continue current Wednesday, , and Wednesday hemodialysis regimen. Fluid removal only as tolerated. Minimal heparin use. Fluid removal again only if the patient will tolerate this. 2. Status post cerebrovascular accident - left-sided weakness. Continue physical therapy. Awaiting rehab input. 3. Agree with current management. Job ID: [id number]
[2018-04-07] MEDS: Sevelamer Carbonate 800 MG TAB PO SCH ×3 (10:35→18:22)
[2018-04-07] MEDS: NIFEdipine XL 30 MG TAB PO SCH (13:30)
[2018-04-07] MEDS: Polyethylene Glycol 3350 17 GM Packet PO SCH (13:32)
[2018-04-07] MEDS: HumaLOG 300 UNITS/3 ML VIAL SC SCH ×2 (14:27→18:22)
[2018-04-07] MEDS: Insulin Glargine 20 UNITS in Pre-Filled Syringe 1 EACH SC SCH (22:07)
[2018-04-07] MEDS: Atorvastatin Calcium 10 MG TAB PO SCH (22:08)
[2018-04-08] MEDS: cloNIDine 0.1 MG TAB PO SCH (09:21)
[2018-04-08] MEDS: Sevelamer Carbonate 800 MG TAB PO SCH ×2 (09:21→12:10)
[2018-04-08] MEDS: NIFEdipine XL 30 MG TAB PO SCH (09:22)
[2018-04-08] MEDS: Polyethylene Glycol 3350 17 GM Packet PO SCH (09:22)
--- NOTE | 2018-04-08 09:41 | PRG ---
DATE OF SERVICE: 04/08/2018 RENAL MEDICINE SUBJECTIVE: Ms. Nicole is a 72-year-old female, was admitted for CVA and being followed by the [facility]al Service for maintenance hemodialysis. She underwent dialysis yesterday without any problems. She is now going to be transferred to Rehab today. No new complaints. Still intermittently confused. OBJECTIVE: VITAL SIGNS: Blood pressure 146/66, heart rate 89, respiratory rate 18, temperature 97.9, and pulse ox 99%. GENERAL: Awake, alert, comfortable, not in distress. SKIN: Adequate turgor. HEENT: She has pinkish conjunctivae. Anicteric sclerae. No neck mass. No carotid bruits. No JVD. CHEST: No deformities. LUNGS: Clear breath sounds. No wheezing. No crackles. HEART: Normal sinus rhythm. No murmurs, gallops, or rubs. ABDOMEN: Globular, soft, and nontender. No masses. EXTREMITIES: No edema. No deformities. NEUROLOGIC: Left-sided weakness, left facial weakness. MEDICATIONS: Medications of April 08, 2018, reviewed. LABORATORY DATA: Laboratories of April 08, 2018; glucose was 121. On April 06, 2018, hemoglobin 14.2. On April 06, 2018; potassium 4.5, BUN 27, creatinine 6.02. ASSESSMENT AND PLAN: 1. End-stage renal disease, stable. Continue current hemodialysis regimen, Wednesday, , and Wednesday. No indication for any emergent hemodialysis. I have scheduled this patient for regular dialysis at the rehab facility. 2. Overall, agree with current management. 3. Status post cerebrovascular accident with left-sided weakness. Continue supportive care for transfer to rehab. Job ID: [id number]
[2018-04-08 11:22] VITALS: BP 148/64; TEMP 97.6
[2018-04-08] MEDS: HumaLOG 300 UNITS/3 ML VIAL SC SCH (12:09)
== END 2018-04-08 15:07 | DRG 64 ==
LOC: ERS 21:27 → OBSVTOIN 22:50 → ERHOLD 22:50 → 2SE 03-31 15:26
PROVIDERS: ADMIT Internal Medicine; ATTEND Internal Medicine
PROC: 5A1D70Z Performance of Urinary Filtration, Intermittent, Less than 6 Hours Per Day (ICD-10-PCS; principal; 2018-03-31)
PROC: 5A1D70Z Performance of Urinary Filtration, Intermittent, Less than 6 Hours Per Day (ICD-10-PCS; 2018-04-02)
PROC: 5A1D70Z Performance of Urinary Filtration, Intermittent, Less than 6 Hours Per Day (ICD-10-PCS; 2018-04-04)
PROC: 5A1D70Z Performance of Urinary Filtration, Intermittent, Less than 6 Hours Per Day (ICD-10-PCS; 2018-04-07)
DX: I63.9 Cerebral infarction, unspecified (principal); N18.6 End stage renal disease; G81.94 Hemiplegia, unspecified affecting left nondominant side; I12.0 Hypertensive chronic kidney disease with stage 5 chronic kidney disease or end stage renal disease; R29.810 Facial weakness; R47.81 Slurred speech; E11.22 Type 2 diabetes mellitus with diabetic chronic kidney disease; Z99.2 Dependence on renal dialysis; Z79.4 Long term (current) use of insulin; K21.9 Gastro-esophageal reflux disease without esophagitis; E11.21 Type 2 diabetes mellitus with diabetic nephropathy; D63.1 Anemia in chronic kidney disease; M10.9 Gout, unspecified; I25.10 Atherosclerotic heart disease of native coronary artery without angina pectoris; E87.6 Hypokalemia
CPT/HCPCS: 36415; 36416; 51701; 70450; 70496; 70498; 80048; 80053; 80061; 81003; 81015; 82550; 82553; 84484; 85025; 85610; 85730; 90935; 93005; A4353; G0257; G8978-GP-CM; G8979-GP-CL; G8987-GO-CM; G8988-GO-CL; G8996-GN-CI; G8996-GN-CJ; G8997-GN-CI; J1610; J1815

== ENCOUNTER 2018-05-20 22:58 | Inpatient (IN) | payer MEDICARE ==
--- NOTE | 2018-05-20 23:30 | RAD ---
LEFT KNEE FOUR VIEW 05/20/18 HISTORY: Fall. COMPARISON: None. FINDINGS: No significant joint effusion. No acute displaced fracture or malalignment. Mild vascular calcificati ons. IMPRESSION: No acute fracture or malalignment. POS: [facility]
[2018-05-21] MEDS ORDERED: Acetaminophen/Codeine 30-300mg Tablet ONE (00:10)
[2018-05-21 01:21] LABS: Hemoglobin 9.6 g/dL (12.0-16.0); Mean Corpuscular HGB CONC 32.7 g/dL (32.0-36.0); Mean Corpuscular Hemoglobin 29.5 pg (27.0-31.0); Mean Corpuscular Volume 90.5 fL (78.0-98.0); RBC Distribution Width 15.7 % (11.5-14.5); Red Blood Cell (RBC) Count 3.26 mill/uL (4.20-5.40)
[2018-05-21] MEDS ORDERED: cloNIDine 0.1 MG TAB ONE (01:21)
[2018-05-21 01:28] LABS: PTT 36.4 SEC (22.9-36.1); Prothrombin Time 13.5 SEC (12.0-14.7)
[2018-05-21] MEDS ORDERED: Fentanyl 100 MCG/2 ML VIAL ONE (01:37)
[2018-05-21 01:45] LABS: ALT (SGPT) 22 U/L (8-55); AST (SGOT) 25 U/L (5-34); Albumin 3.5 g/dL (3.4-4.8); Alkaline Phosphatase 108 U/L (40-150); Anion Gap 16 mmol/L (10-20); BUN (Urea Nitrogen) 32 mg/dL (9.8-20.1); Bilirubin, Total 0.4 mg/dL (0.2-1.2); Calc. Creatinine Clearance 0 mL/min (70-130); Calcium 9.4 mg/dL (7.8-10.44); Carbon Dioxide 28 mmol/L (23-31); Chloride 103 mmol/L (98-107); Estimated GFR-MDRD 8; Globulin 3.5 g/dL (2.4-3.5); Glucose 235 mg/dL (80-115); Potassium 5.2 mmol/L (3.5-5.1); Sodium 142 mmol/L (136-145)
[2018-05-21 01:51] LABS: #Lymphocytes 0.7 thou/uL (1.20-3.40); #Monocytes 0.3 thou/uL (0.11-0.59); #Neutrophils 3.9 thou/uL (1.40-6.50); %Basophils 0.5 % (0.0-1.0); %Eosinophils 0.5 % (0.0-10.0); %Lymphocytes 13.4 % (21.0-51.0); %Monocytes 6.3 % (0.0-10.0); %Neutrophils 79.3 % (42.0-75.0); Mean Platelet Volume 7.6 fL (7.4-10.4); Platelet Count 119 thou/uL (130-400)
[2018-05-21] MEDS ORDERED: Morphine 4 MG/ML VIAL SLOW IVP PRN ×2 (02:30)
[2018-05-21] MEDS ORDERED: traMADol HCl 50 MG TAB PO PRN (02:35)
[2018-05-21] MEDS ORDERED: Dextrose 5% in Water 1,000 ML IV PRN (02:35)
[2018-05-21] MEDS ORDERED: Dextrose 50% Abboject 50 ML SYRINGE SLOW IVP PRN (02:35)
[2018-05-21] MEDS ORDERED: hydrALAZINE 20 MG/ML VIAL SLOW IVP PRN (02:35)
[2018-05-21] MEDS: Acetaminophen 1,000 MG in Premix Bag 1 BAG IVPB SCH ×4 (02:53→20:37)
[2018-05-21] MEDS: traMADol HCl 50 MG TAB PO PRN ×2 (02:54→19:08)
[2018-05-21 03:20] VITALS: BMI 27.5
--- NOTE | 2018-05-21 03:42 | HP ---
TRAUMA SURGEON: Eric Virgen DO CONSULTING PHYSICIAN: Miko Cuadra MD HISTORY OF PRESENT ILLNESS: The patient is a 72-year-old female patient who had a mechanical fall from standing and hit her left side on the wall on the way down landing on her buttocks. She had a CVA about 6 weeks ago and has residual left-sided weakness and usually walks with assistance. Tonight, the patient tried to ambulate independently for the first time and fell. She denies dizziness, loss of consciousness, and lightheadedness. She remembers all of the event. She takes aspirin daily, but no other blood thinners. She is also on dialysis Wednesday, , and Wednesday. After the fall, EMS brought her to the emergency department where she received x-rays of her left knee and left hip and a chest x-ray. Imaging demonstrated she had a left-sided hip fracture for which Dr. Mcknight was consulted. He will evaluate her in the morning for possible operative fixation. She denies nausea, vomiting, and diarrhea. Reports pain is 8/10. REVIEW OF SYSTEMS: All additional 10-point review of systems negative except as indicated in HPI. PAST MEDICAL HISTORY: She has end-stage renal disease, on dialysis Wednesday, , and Wednesday, congenital heart failure. She had a history of renal cancer, status post resection. She has currently 1 kidney, type 2 diabetes, hypertension, and depression. She has a fistula in her right upper extremity. PAST SURGICAL HISTORY: Fistula placement in right upper extremity, appendectomy, total hysterectomy, kidney removal. SOCIAL HISTORY: She lives at home with her son and . She denies tobacco, alcohol, or drug use. MEDICATIONS: She is currently taking, 1. Vitamin D3. 2. Tramadol. 3. Renvela. 4. Tylenol. 5. Mirtazapine. 6. Nifedipine. 7. Clonidine. 8. Atorvastatin. 9. Amlodipine. 10. Levemir. 11. Humalog. ALLERGIES: INCLUDE, 1. DARVOCET. 2. MORPHINE. PHYSICAL EXAMINATION: VITAL SIGNS: Temperature 98.7, pulse 95, respirations 16, oxygen saturation 95% on room air, blood pressure 167/71. PRIMARY ASSESSMENT: Airway intact. Adequate breath sounds bilaterally. 2+ distal pulses palpable in radials, femorals, and DPs/PTs bilaterally. GCS is 15. Gross motor and sensation intact. Pupils are equal, round, and reactive to light. No lacerations noted, two bruises to right lateral abdomen-likely due to insulin injection, no external signs of bleeding. SECONDARY SURVEY: HEAD: Normocephalic and atraumatic. No gross skull deformities or tenderness. EYES: Pupils are equal, round, and reactive to light and 3 to 2 bilaterally. ENT: No hemotympanum. No epistaxis. No septal hematoma. Midface stable to manipulation. No blood in the oropharynx. Chronic dental disease, status post removal of teeth. No anterior neck injury/crepitus/tenderness. C-SPINE: No step-offs or deformities. Nontender. C-collar not in place. CHEST: Nontender. No crepitus. No abrasions or ecchymosis. Equal chest rise and fall. ABDOMEN: Soft, nontender, and nondistended. PELVIS: Stable to palpation. Tender at the left hip. No abrasions or ecchymosis noted. RECTAL: Deferred. GENITOURINARY: Deferred. EXTREMITIES: Left lower extremity tender to palpation at left hip. Left lower extremity externally rotated. No abrasions or ecchymosis noted. 2+ radials, femorals, DP and PT pulses present bilaterally BACK/SPINE: No step-offs/deformities or tenderness to palpation of thoracic/lumbar spine. No abrasions or ecchymosis noted. NEUROLOGIC: 5/5 car rental agency manager strength in bilateral car rental agency manager, plantar flexion, and dorsiflexion. Grossly normal sensation x4 extremities. LABORATORY FINDINGS: White blood cell count 5.0, hemoglobin 9.6, hematocrit 29.5, platelets 119. INR 1.0. Sodium 142, potassium 5.2, chloride 103, carbon dioxide 28, BUN 32, creatinine 5.52, glucose 235. DIAGNOSTIC FINDINGS: 1. X-ray of the left hip significant for a left femoral neck fracture. 2. X-ray of the left knee and chest within normal limits. ASSESSMENT: 1. Status post ground level fall. 2. Left femoral neck fracture. 3. History of end-stage renal disease, congenital heart failure, status post nephrectomy, type 2 diabetes, hypertension, and depression. 4. Left ankle tenderness. PLAN: We will complete an x-ray of the left ankle to rule out additional injuries. We will consult Dr. Washington in the morning as patient is normally Wednesday, , and Wednesday dialysis patient and may require dialysis before going to the OR as potassium is elevated currently. We will continue to provide supportive care and admit the patient to the surgical floor. We will hold chemo-DVT prophylaxis at this time. We will schedule IV Tylenol, IV acetaminophen 1 g q.6 hours as well as the patient will receive tramadol p.r.n. for pain and fentanyl for breakthrough pain. She will be n.p.o. She did receive 0.1 mg of clonidine in the emergency department for hypertension. She is to be on strict bedrest at this time. PT and OT will see the patient postoperatively. She will also receive q.4 hour glucose checks with insulin sliding scale. The patient will be discussed with Dr. Virgen after this dictation. Job ID: [id number]
[2018-05-21] MEDS: HumaLOG 300 UNITS/3 ML VIAL SC PRN (04:53)
[2018-05-21] MEDS: Fentanyl 100 MCG/2 ML VIAL SLOW IVP PRN ×2 (05:09→11:12)
[2018-05-21] MEDS ORDERED: CEFAZOLIN/Water 2 GM/20 ML SYRINGE SLOW IVP SCH (08:00)
[2018-05-21] MEDS ORDERED: CEFAZOLIN 2 GM in Premix Bag 1 BAG IVPB SCH (08:00)
--- NOTE | 2018-05-21 08:09 | RAD ---
SINGLE VIEW OF THE CHEST: COMPARISON: 11/08/2017. HISTORY: Preoperative radiograph. FINDINGS: A single view of the chest shows an enlarged but stable cardiomediastinal silhouette with atheroscler otic calcifications in the aorta. There is no evidence of consolidation, mass, or pleural effusion. Surgical clips are seen near the gastroesophageal junction. IMPRESSION: No evidence of acute cardiopulmonary disease. POS: [facility]
--- NOTE | 2018-05-21 08:12 | RAD ---
TWO VIEWS OF THE LEFT HIP: COMPARISON: None. HISTORY: Mechanical fall with pain. FINDINGS: Two views of the left hip show an intratrochanteric fracture of the left femur. Surrounding soft tis celeste swelling is seen. No dislocation of femoral head is seen. IMPRESSION: Intratrochanteric left femur fracture. POS: [facility]
--- NOTE | 2018-05-21 08:13 | RAD ---
THREE VIEWS OF LEFT ANKLE: COMPARISON: None. HISTORY: Femur fracture. Ankle tenderness. Fall. Left ankle pain. FINDINGS: Three views of the left ankle show no evidence of acute fracture or dislocation. No degenerative severino nges were seen. IMPRESSION: Unremarkable exam. POS: [facility]
--- NOTE | 2018-05-21 08:50 | CON ---
DATE OF CONSULTATION: 05/21/2018 REASON FOR CONSULTATION: Left hip fracture. REQUESTING PHYSICIAN: Trauma Services. CONSULTING PHYSICIAN: Avinash Mcknight MD HISTORY OF PRESENT ILLNESS: This is a 72-year-old female who is status post recent left-sided CVA approximately 6 weeks ago, who attempted to ambulate independently at home for the first time and lost her balance falling against a wall and then landing on her buttocks. She had immediate pain to the left hip and was unable to ambulate. She was brought by ground EMS to the emergency department, where workup showed a left intertrochanteric femur fracture. We have been consulted for this reason. Currently at bedside, the patient and family report that she is also an end-stage renal disease, the patient on hemodialysis Wednesday, , and Wednesday. She did last receive dialysis on . She is due for dialysis today. She has no complaints at this current time other than left hip pain, which is worse with movement and relieved with rest. She is comfortable in bed at this time. No numbness or tingling distally. She states that she has some sensation to the left side of her body including her arm and her leg. No motor function in the left arm. Very little motor function in the left leg. PAST MEDICAL HISTORY: Significant for end-stage renal disease, on hemodialysis Wednesday, , and Wednesday; congenital heart failure; history of renal cancer, status post resection. She currently has one kidney, type 2 diabetes, hypertension, and depression. She has a fistula in her right upper extremity. PAST SURGICAL HISTORY: Fistula placement in the right upper extremity, appendectomy, total hysterectomy, and kidney removal. SOCIAL HISTORY: She lives at home with her son and her . She denies any alcohol, tobacco, or drug use. FAMILY HISTORY: Reviewed and noncontributory. REVIEW OF SYSTEMS: A 10-point review of systems was conducted and otherwise negative except for stated above. ALLERGIES: DARVOCET AND MORPHINE. PHYSICAL EXAMINATION: VITAL SIGN: Temperature 97.9, pulse of 86, respiratory rate of 20, O2 saturation of 98% on room air, and blood pressure of 151/69. GENERAL: The patient is awake and alert. She is lying supine in bed at this time. Her and son are present with her in the room. She is in no apparent distress. She is appropriate with exam findings today. She answers questions appropriately. HEENT: Head is normocephalic and atraumatic. NECK: Supple. Trachea in midline. Breathing is nonlabored. EXTREMITIES: The patient does hold her left upper extremity close to her body. There is no movement visualized in the left upper extremity. She does report sensation intact with light touch to the left upper extremity. With regard to the left lower extremity, skin is intact overlying the hip region. No ecchymosis or wounds present. Very little movement in the lower extremity. She does report sensation intact distally. RADIOGRAPHIC FINDINGS: Images of the knee, ankle, and hip are reviewed. There is a displaced intertrochanteric femur fracture on the left side. ASSESSMENT: Left intertrochanteric femur fracture, status post fall with recent cerebrovascular accident and residual left-sided weakness. I have had a long discussion with the patient and her family today regarding operative fixation. Family states that she has been doing very well overall. She was released from rehab 2 weeks ago and has been getting around the house on her own until this fall. We discussed operative fixation of the fracture site, and the risks which include neurovascular injury, bleeding, infection, nonunion, and malunion. They understand these risks and are amenable to go forward with this plan of care. At this time, the patient is due for dialysis. We will coordinate with the trauma team as well as the manager school to get her dialyzed today possibly before surgery. If this is the case, we may wait to do her case until tomorrow, so that she may receive dialysis today. The patient is admitted to the Trauma Services. Case discussed with Dr. Mcknight. Thank you for this consultation. Job ID: [id number]
[2018-05-21] MEDS: Polyethylene Glycol 3350 17 GM Packet PO SCH (10:08)
[2018-05-21] MEDS: Famotidine/PF 20 mg/2ml Vial SLOW IVP SCH (10:08)
[2018-05-21] MEDS: Senokot S 8.6-50 MG TAB PO SCH ×2 (10:09→20:38)
--- NOTE | 2018-05-21 10:37 | PRG ---
DATE OF SERVICE: 05/21/2018 SUBJECTIVE: Ms. Nicole is a 72-year-old woman, who was admitted this morning following a ground level fall. The patient is awake and alert now. She admits to adequate pain control. She has a history of hemodialysis-dependent chronic kidney disease. Today is her usual dialysis today. OBJECTIVE: VITAL SIGNS: This morning includes blood pressure 151/69, pulse 86, respirations 20, temperature is 97.9 degrees Fahrenheit, and oxygen saturation 98% on room air. HEENT: Reveals normocephalic and atraumatic. Pupils are equal, round, and reactive to light and accommodation. NEUROLOGIC: Reveals no focal deficits present. ASSESSMENT AND PLAN: I did review the history and physical as documented by Trauma PA, Ms. Jesi Kingsley. I concur with her findings and plan. The patient will undergo hemodialysis today and proceed to surgery tomorrow with Orthopedic Surgery. She is otherwise hemodynamically stable. Job ID: [id number]
[2018-05-21] MEDS: Sevelamer Carbonate 800 MG TAB PO SCH ×2 (11:12→19:07)
--- NOTE | 2018-05-21 13:04 | CON ---
DATE OF CONSULTATION: SERVICE: Renal Medicine HISTORY OF PRESENT ILLNESS: Ms. Nicole is a 72-year-old female with known history of ESRD and was admitted for intertrochanteric fracture of the left femur. We are being consulted for maintenance hemodialysis. She is due for dialysis. I have made arrangements to dialyze her later this afternoon. In reviewing the risks, this patient was recently admitted for CVA with left-sided weakness and has been at rehab for about 3 weeks. MEDICATIONS: 1. DuoNeb q.4 p.r.n. 2. Lipitor 10 mg at bedtime. 3. Cefazolin 2 g - x1 dose. 4. Vitamin D3 of 5000 international units daily. 5. Famotidine 20 mg IV daily. 6. P.r.n. hydralazine. 7. Remeron 30 mg at bedtime. 8. MiraLAX 17 g daily. 9. Renvela 800 mg 3 tablets t.i.d. with meals made. 10. Tramadol 100 mg q.6 p.r.n. PAST MEDICAL HISTORY: 1. Recently status post CVA with left-sided hemiplegia. 2. ESRD from diabetic nephropathy. 3. Type 2 diabetes mellitus. 4. Hypertension. 5. Chronic anemia. 6. Gout. 7. Coronary artery disease. PAST SURGICAL HISTORY: Status post AV fistula placement, status post colonoscopy, status post appendectomy, status post bilateral tubal ligation, status post cuffed dialysis catheter placement, status post cardiac cath with coronary artery stent placement, status post appendectomy, status post left nephrectomy, and status post cholecystectomy. ALLERGIES: NAPROSYN. TRAUMA: Recently, the patient has left intertrochanteric fracture, status post hip fracture, status post right leg fracture, status post collarbone fracture. IMMUNIZATION: Up-to-date. HOSPITALIZATIONS: Please see past medical history. SOCIAL HISTORY: The patient lives in [place]. , 6 children. 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 Sedentary lifestyle. Education, high school. No smoking. No alcohol. FAMILY HISTORY: No family history of ESRD. PHYSICAL EXAMINATION: VITAL SIGNS: Blood pressure is noted to be at 133/76 with a heart rate of 78, respiratory rate 18, temperature 98.8, and pulse ox 94% on room air. GENERAL: On examining the patient today, she looks comfortable and stable. The patient is awake, alert, comfortable, not in overt distress. SKIN: Adequate turgor. HEENT: Slightly pale conjunctivae. Anicteric sclerae. NECK: No neck mass. No carotid bruits. No JVD. CHEST: No deformities. LUNGS: Clear breath sounds. No wheezing. No crackles. HEART: Normal sinus rhythm. No murmur. No gallops. No rubs. ABDOMEN: Globular, soft, nontender. No masses. EXTREMITIES: No edema. No deformities. Limited range of motion of the left hip joint. She has decreased motor and sensory on the left side of her body. She has a mild facial asymmetry. NEUROLOGICAL: Oriented to 3 spheres. Moving all extremities except for decreased motor on the left side of the body. LABORATORY DATA: Laboratories of May 21, 2018; white count 5, hemoglobin 9.6. Sodium 142, potassium 5.2, chloride 103, carbon dioxide 28, BUN is 32, creatinine 5.52, glucose 235, AST 25, and ALT 22. ASSESSMENT AND PLAN: 1. Status post left intertrochanteric fracture - for planned surgery tomorrow. The patient may need to be worked up for osteoporosis in the near future. 2. End-stage renal disease, stable. We will continue current maintenance hemodialysis. Fluid removal only as tolerated. 3. Anemia. Restart Epogen as well as iron supplementation. 4. Status post cerebrovascular accident - with left hemiplegia, supportive care. Job ID: [id number]
[2018-05-21] MEDS: Atorvastatin Calcium 10 MG TAB PO SCH (20:38)
[2018-05-21] MEDS: Mirtazapine 30 MG TAB PO SCH (20:38)
[2018-05-22] MEDS: Acetaminophen 1,000 MG in Premix Bag 1 BAG IVPB SCH (03:54)
[2018-05-22 07:44] LABS: #Lymphocytes 0.9 thou/uL (1.20-3.40); #Monocytes 0.3 thou/uL (0.11-0.59); %Basophils 0.2 % (0.0-1.0); %Eosinophils 0.5 % (0.0-10.0); %Lymphocytes 16.5 % (21.0-51.0); %Monocytes 5.7 % (0.0-10.0); %Neutrophils 77.1 % (42.0-75.0); Hemoglobin 9.2 g/dL (12.0-16.0); Mean Corpuscular HGB CONC 32.9 g/dL (32.0-36.0); Mean Corpuscular Hemoglobin 29.6 pg (27.0-31.0); Mean Corpuscular Volume 89.8 fL (78.0-98.0); Mean Platelet Volume 7.9 fL (7.4-10.4); Platelet Count 118 thou/uL (130-400); RBC Distribution Width 15.3 % (11.5-14.5); Red Blood Cell (RBC) Count 3.12 mill/uL (4.20-5.40); White Blood Cell (WBC) Count 5.2 thou/uL (4.8-10.8)
[2018-05-22] MEDS ORDERED: Fentanyl 100 MCG/2 ML VIAL ONE (07:45)
[2018-05-22 07:55] LABS: Anion Gap 15 mmol/L (10-20); BUN (Urea Nitrogen) 24 mg/dL (9.8-20.1); Calc. Creatinine Clearance 16 mL/min (70-130); Calcium 9.1 mg/dL (7.8-10.44); Carbon Dioxide 26 mmol/L (23-31); Chloride 99 mmol/L (98-107); Estimated GFR-MDRD 12; Glucose 182 mg/dL (80-115); Magnesium 1.8 mg/dL (1.6-2.6); Phosphorus 3.3 mg/dL (2.3-4.7); Potassium 4.8 mmol/L (3.5-5.1); Sodium 135 mmol/L (136-145)
[2018-05-22] MEDS ORDERED: Magnesium 2 GM/50 ML 2 GM in Premix Bag 1 BAG IVPB SCH (08:15)
--- NOTE | 2018-05-22 09:13 | RAD ---
TWO VIEWS LEFT HIP: COMPARISON: Left hip radiograph 05/21/2018. HISTORY: Left hip fracture status post ORIF. FINDINGS/IMPRESSION: Two limited intraoperative fluoroscopic views of the left hip were submitted for interpretation. The patient is status post intramedullary dennis fixation/scanning intratrochanteric left femur fracture. No perihardware lucency is seen. POS: DONNA
[2018-05-22] MEDS ORDERED: Promethazine HCl 25 MG/ML VIAL SLOW IVP PRN (09:25)
[2018-05-22] MEDS ORDERED: Promethazine HCl 25 MG/ML VIAL IM PRN (09:25)
[2018-05-22] MEDS ORDERED: Morphine Sulfate 2 MG/ML SYRINGE SLOW IVP PRN (09:25)
[2018-05-22] MEDS ORDERED: Ondansetron HCl/PF 4 MG/2 ML Vial IVP PRN (09:25)
--- NOTE | 2018-05-22 10:16 | OP ---
DATE OF PROCEDURE: 05/22/2018 OPERATION PERFORMED: Left femur intramedullary nail. PREOPERATIVE DIAGNOSIS: Left intertrochanteric femur fracture. POSTOPERATIVE DIAGNOSIS: Left intertrochanteric femur fracture. COMPLICATIONS: None. ESTIMATED BLOOD LOSS: 100 mL. ANESTHESIA: General. IMPLANT: Synthes short trochanteric nail, size 11 mm with helical blade. INDICATIONS: Ms. Nicole is a 72-year-old female who has fallen. She fractured her left intertrochanteric femur. She was indicated for intramedullary nail fixation to restore anatomic alignment and promote healing. Risks have been reviewed in detail. Goal of surgery is to promote early mobilization. Risks does include nonunion, malunion, infection, pain, scarring, and others. She is at risk for DVT as well. DESCRIPTION OF OPERATION: Roslyn was identified in the preoperative holding area. Her correct extremity was marked. She was carried to the operating room. She was positioned supine. General anesthesia was induced. A multidisciplinary time-out was performed. The left lower extremity was prepped and draped in sterile fashion. We began the procedure with evaluation of the hip fracture on intraoperative x-ray. We pulled traction and rotated the fracture back into its anatomic position. At this point, we proceeded to make a small incision over the top of the greater trochanter. We dissected down to the subcutaneous tissues. A guidewire was inserted. We then overdrilled the guidewire. At this point, we inserted our 11 mm short trochanteric nail. This was centered in the bone. We then placed a helical blade using a guidewire and intraoperative x-ray in the center position of the femoral head. Finally, we placed a distal Crosslock screw. At this point, we removed all instrumentation. We then thoroughly irrigated with copious lavage. We then took final images. We closed all wounds in layers. The patient was taken to the recovery room in good condition without complication. Job ID: [id number]
--- NOTE | 2018-05-22 10:59 | PRG ---
DATE OF SERVICE: 05/22/2018 SUBJECTIVE: Ms. Nicole is a 72-year-old female with ESRD and was admitted for left intertrochanteric femoral fracture. She underwent the left femur intramedullary nailing. We were consulted for her maintenance hemodialysis. She underwent dialysis yesterday without any problem. This morning, no new complaints. She is still sleepy, but arousable. OBJECTIVE: VITAL SIGNS: Blood pressure is 161/70, heart rate 93, respiratory rate 20, temperature 100.7, pulse ox 95%. GENERAL: Awake, alert, comfortable, not in distress. SKIN: Adequate turgor. HEENT: Slightly pale conjunctivae. Anicteric sclerae. No neck mass. No carotid bruits. No JVD. CHEST: No deformities. LUNGS: Clear breath sounds. HEART: Normal sinus rhythm. No murmur. No gallops. No rubs. ABDOMEN: Globular, soft, nontender. No masses. EXTREMITIES: No edema. No deformities. MEDICATIONS: Medications of May 22, 2018, was reviewed. LABORATORY DATA: Laboratories of May 22, 2018; white count 5.2, hemoglobin 9.2. Sodium 135, potassium 4.8, chloride 99, carbon dioxide 26, BUN 24, creatinine 3.84, glucose 182, calcium 9.1, phosphorus 3.3, magnesium 1.8. ASSESSMENT AND PLAN: 1. End-stage renal disease - stable. Tolerating current hemodialysis regimen. Continue Wednesday, , and Wednesday dialysis regimen. Fluid removal only as tolerated. 2. Status post left intertrochanteric femur fracture - the patient underwent left femur intramedullary nailing with Dr. Mcknight yesterday. 3. Anemia. Start Epogen 7500 units subcu weekly. Continue current iron supplementation. Job ID: [id number]
[2018-05-22] MEDS: Ondansetron PF 4 MG/2 ML Vial IVP PRN ×2 (12:01→22:15)
[2018-05-22] MEDS: Ascorbic Acid 500 mg Chewable Tablet PO SCH (13:34)
[2018-05-22] MEDS: Sevelamer Carbonate 800 MG TAB PO SCH ×2 (13:34→15:37)
[2018-05-22] MEDS: Famotidine/PF 20 mg/2ml Vial SLOW IVP SCH (13:35)
[2018-05-22] MEDS: Polyethylene Glycol 3350 17 GM Packet PO SCH (13:35)
[2018-05-22] MEDS: Senokot S 8.6-50 MG TAB PO SCH ×2 (13:36→22:11)
[2018-05-22] MEDS ORDERED: CEFAZOLIN/Water 2 GM/20 ML SYRINGE SLOW IVP SCH (15:00)
[2018-05-22] MEDS: CEFAZOLIN 2 GM in Premix Bag 1 BAG IVPB SCH ×2 (15:17→22:13)
--- NOTE | 2018-05-22 15:17 | PRG ---
DATE OF SERVICE: 05/22/2018 SUBJECTIVE: The patient was seen this morning postoperatively for a left femur IM nail. She appeared well and had no complaints. She was a little bit drowsy as anesthesia was still wearing off. She had been tolerating a diabetic diet before she was n.p.o. at midnight. She had received dialysis yesterday on her regular schedule Wednesday, , Wednesday routine. She had no acute overnight events. Denies nausea, vomiting, or diarrhea. PHYSICAL EXAMINATION: VITAL SIGNS: Temperature 99.4, pulse 97, respirations 20, oxygen saturation 100% on 2L nasal cannula, and blood pressure 158/71. GENERAL: Alert and well-appearing middle-aged female, lying in bed, with no signs of acute distress. NEUROLOGIC: GCS is 15. Alert and oriented x3. Gross motor and sensation intact. Pupils equal, round, and reactive to light. PULMONARY: No signs of acute distress. Equal chest rise and fall. Lung amato clear bilaterally. HEART: Regular rate and rhythm. No murmurs, gallops, or rubs. GI: Abdomen is soft, nontender, and nondistended with positive bowel sounds. EXTREMITIES: Dialysis graft to right upper extremity. OR dressing to left upper extremity clean, dry, and intact with no signs of infection, 2+ pulses in all extremities. No swelling noted. LABORATORY FINDINGS: White blood cell count 5.2, hemoglobin 9.2, hematocrit 28.0, and platelets 118. Sodium 135, potassium 4.8, chloride 99, carbon dioxide 26, BUN 24, creatinine 3.84, and glucose 182. Phos 3.3. Magnesium 1.8. DIAGNOSTIC FINDINGS: There are no diagnostic findings to report. ASSESSMENT: 1. Status post ground-level fall. 2. Left femoral neck fracture. 3. Hypomagnesemia. 4. Hypophosphatemia. 5. History of end-stage renal disease. 6. Congenital heart failure. 7. Status post nephrectomy. 8. Type 2 diabetes. 9. Hypertension. 10. Depression. 11. Acute traumatic pain. PLAN: The patient went to the OR today with Dr. Mcknight for IM nail of the left femur. Postoperatively, she will be changed to all p.o. pain medications and be given diabetic diet. PT and OT is to see the patient postoperatively and work with her. Home nifedipine and amlodipine will be restarted for better blood pressure control. Magnesium and phos will be replaced today. The patient will also continue to receive other home medications, started yesterday. Dr. Washington of Nephrology will continue to see the patient and order dialysis as regular scheduled for Wednesday, , and Wednesday. The patient was seen and examined by Dr. Pride this morning during rounds. Job ID: [id number]
[2018-05-22] MEDS: HumaLOG 300 UNITS/3 ML VIAL SC PRN ×2 (15:31→22:11)
[2018-05-22] MEDS ORDERED: PROPOFOL 200 MG/20 ML VIAL ONE (16:20)
[2018-05-22] MEDS ORDERED: Glycopyrrolate 0.2 MG/ML 5 ML SYRINGE ONE (16:20)
[2018-05-22] MEDS ORDERED: Lidocaine 1% PF 5 ML VIAL ONE (16:20)
[2018-05-22] MEDS ORDERED: Ondansetron PF 4 MG/2 ML Vial ONE (16:20)
[2018-05-22] MEDS ORDERED: Rocuronium Bromide 10 MG/ML (10ML VIAL) ONE (16:20)
[2018-05-22] MEDS: Epoetin (ESRD) 20,000 UNITS/ML SC SCH (16:43)
[2018-05-22] MEDS: Atorvastatin Calcium 10 MG TAB PO SCH (22:11)
[2018-05-22] MEDS: Mirtazapine 30 MG TAB PO SCH (22:12)
[2018-05-23] MEDS: HumaLOG 300 UNITS/3 ML VIAL SC PRN ×5 (03:52→23:58)
[2018-05-23 06:29] LABS: #Lymphocytes 0.7 thou/uL (1.20-3.40); #Monocytes 0.4 thou/uL (0.11-0.59); #Neutrophils 5.5 thou/uL (1.40-6.50); %Basophils 0.2 % (0.0-1.0); %Eosinophils 0.1 % (0.0-10.0); %Monocytes 5.9 % (0.0-10.0); %Neutrophils 82.8 % (42.0-75.0); Hemoglobin 8.8 g/dL (12.0-16.0); Mean Corpuscular HGB CONC 33.3 g/dL (32.0-36.0); Mean Corpuscular Hemoglobin 29.8 pg (27.0-31.0); Mean Corpuscular Volume 89.4 fL (78.0-98.0); Platelet Count 133 thou/uL (130-400); RBC Distribution Width 15.2 % (11.5-14.5); Red Blood Cell (RBC) Count 2.95 mill/uL (4.20-5.40); White Blood Cell (WBC) Count 6.6 thou/uL (4.8-10.8)
[2018-05-23 06:45] LABS: Anion Gap 16 mmol/L (10-20); BUN (Urea Nitrogen) 42 mg/dL (9.8-20.1); Calc. Creatinine Clearance 11 mL/min (70-130); Calcium 9.1 mg/dL (7.8-10.44); Carbon Dioxide 25 mmol/L (23-31); Chloride 98 mmol/L (98-107); Estimated GFR-MDRD 8; Glucose 217 mg/dL (80-115); Magnesium 2.7 mg/dL (1.6-2.6); Potassium 5.4 mmol/L (3.5-5.1); Sodium 134 mmol/L (136-145)
[2018-05-23 06:46] LABS: Phosphorus 3.6 mg/dL (2.3-4.7)
[2018-05-23 08:36] LABS: INR-International Normal Ratio 1.1; PTT 28.8 SEC (22.9-36.1); Prothrombin Time 14.2 SEC (12.0-14.7)
[2018-05-23 08:41] LABS: CKMB 0.6 ng/mL (0-6.6); Troponin I 0.027 ng/mL (< 0.028)
[2018-05-23] MEDS ORDERED: NIFEdipine XL 30 MG TAB PO SCH (09:00)
[2018-05-23] MEDS ORDERED: Amlodipine 5 MG TAB PO SCH (09:00)
--- NOTE | 2018-05-23 09:32 | CT ---
HEAD CT WITHOUT CONTRAST: HISTORY: Stroke alert. Right-sided facial droop and weakness. Last seen normal last night. Wakeup stroke. COMPARISON: 04/18/2018. FINDINGS: No parenchymal hemorrhage. No extraaxial hematoma. NO midline shift. Basilar cisterns are patent. Brain volume, age appropriate. Cortical carty-white matter differentiation is preserved. No evidence of hydrocephalus. Stable configuration of the ventricular system with slight asymmetric prominence of the occipital horn of the right lateral ventricle. Stable confluent white matter hypod ensities. Calvarium is intact. Adequate aeration of the sinuses and mastoid air cells. Dense cavernous caroti d atherosclerosis. IMPRESSION: No acute intracranial process. Results of the study were discussed with Ronel, nurse practitioner for the trauma service, 05/23/2018 a t 8:15 a.m. CODE CR POS: CODEY
[2018-05-23] MEDS: Aspirin 81 mg Enteric Coated Tablet PO SCH ×2 (09:43→09:53)
[2018-05-23] MEDS: Famotidine/PF 20 mg/2ml Vial SLOW IVP SCH (09:51)
[2018-05-23] MEDS: Ascorbic Acid 500 mg Chewable Tablet PO SCH (09:53)
[2018-05-23] MEDS: Sevelamer Carbonate 800 MG TAB PO SCH ×2 (09:53→13:29)
[2018-05-23] MEDS: Senokot S 8.6-50 MG TAB PO SCH (09:57)
[2018-05-23] MEDS: Polyethylene Glycol 3350 17 GM Packet PO SCH (09:58)
[2018-05-23] MEDS ORDERED: Promethazine HCl 25 MG/ML VIAL IM/IV PRN (10:05)
[2018-05-23] MEDS: Ondansetron PF 4 MG/2 ML Vial IVP PRN (10:22)
--- NOTE | 2018-05-23 10:39 | CT ---
CT ANGIOGRAM OF HEAD CT ANGIOGRAM OF NECK: Date: 05/23/18 COMPARISON: 03/30/18. HISTORY: Acute right-sided facial droop and weakness. Last seen normal last night. Wakeup stroke. COMPARISON: None. TECHNIQUE: CT angiogram of the head and neck are performed in the axial plane. Three-dimensional reformatted karo ges are submitted for interpretation. FINDINGS: Postcontrast head CT: Cortical carty-white matter differentiation is preserved. Confluent white matter hypodensities due to chronic small vessel ischemic change. Bilateral orbits are unremarkable. Aerodigestive tract is patent. No mucosal abnormality. Epiglottis is normal caliber. Preepiglottic fa t is preserved. No masses in the oral cavity. Midline fatty raphe of the tongue is preserved. Stable fatty replacement of the parotid bland. Submandibular gland and thyroid gland are unremarkable . No evidence of lymphadenopathy by size criteria. Cervical spine vertebral body height is maintained. There is no fracture. Stable degenerative changes . Upper mediastinum and lung apices are unremarkable. CT angiogram: There is atherosclerosis in the visualized aorta. Right carotid: The right carotid artery origin has appropriate enhancement and luminal diameter. The right common ca rotid artery, carotid bifurcation, and internal carotid artery have appropriate enhancement and lumin al diameter. Left carotid: The left carotid artery origin has appropriate enhancement and luminal diameter. The left common cornejo tid artery, carotid bifurcation, and internal carotid artery have appropriate enhancement and luminal diameter. Both cervical vertebral bodies are patent throughout their course in the neck. Right cervical vertebr al body is dominant. Both subclavian arteries are patent. CT angiogram of head: There is symmetric enhancement and luminal diameter of the intracranial portion of both internal cornejo tid arteries. There is atherosclerosis in both cavernous segments without significant stenosis. Anterior circulation: Symmetric enhancement and luminal diameter of A1 and M1 segments. Symmetric enhancement and luminal d iameter of proximal A2 segments and proximal MCA branches. Posterior circulation: Left vertebral artery has a PICA termination. Right vertebral artery is the sole supplying vessel to the basilar artery. Basilar artery has appropriate enhancement and luminal diameter. The left P1 segm ent has appropriate enhancement and luminal diameter. The right ENVIRONMENTAL SPECIALIST has a origin. No significan t stenosis. IMPRESSION: Unremarkable CT angiogram of head and neck. No significant stenosis based upon NASCET criteria. Results of study conveyed on Ronel nurse practitioner in trauma service, cell phone on 05/23/18 at 08 38 hours. CODE CR. POS: CODEY
[2018-05-23] MEDS ORDERED: ISOVUE-370 76%-LOCM 1 ML ONE (12:55)
[2018-05-23] MEDS ORDERED: Morphine 4 MG/ML VIAL SLOW IVP PRN ×2 (13:37)
--- NOTE | 2018-05-23 16:03 | PRG ---
DATE OF SERVICE: 05/23/2018 SUBJECTIVE: The patient is status post mechanical fall from standing with a left femoral neck fracture. She went to the OR yesterday with Dr. Mcknight and had a left femur IM nail. Postoperatively, she did not have any events; however, this morning, nursing reported several bouts of nausea and vomiting as well as sudden onset of right-sided facial droop and right upper and lower extremity weakness. The patient has a recent history 6 weeks ago of a CVA with left-sided weakness. The patient was hemodynamically stable and normotensive during this time. A code green was activated concerning for a stroke. She received a CT of the brain as well as a CT [place] [facility] [place] angio with contrast. She returned back to her room and imaging demonstrated no signs of acute CVA. Clinically, her symptoms began to improve with improvement in swallowing, speech, facial movements, and right upper and lower extremity weaknesses. She continued to be hemodynamically stable, and only had complaints of nausea. There were concerns about her ability to swallow. Speech was asked to see the patient. PHYSICAL EXAMINATION: VITAL SIGNS: Temperature 97.6, pulse 98, respirations 22, oxygen saturation 100% on 2 L nasal cannula, blood pressure 131/65. GENERAL: Alert, middle-aged female, lying in bed with signs of minimal distress. NEUROLOGIC: GCS is 15. Alert, oriented x3. Decreased motor on the left upper and lower extremity, which is unchanged, but 4/5 strength in the right upper and right lower extremity. HEENT: Pupils equal, round, reactive to light. PULMONARY: No signs of acute distress. Equal chest rise and fall. Lung amato clear bilaterally. HEART: Regular rate and rhythm. No murmurs, gallops, or rubs. GI: Abdomen is soft, nontender, nondistended with positive bowel sounds. EXTREMITIES: Dialysis graft in right upper extremity or dressing to left upper extremity is clean, dry, and intact. 2+ pulses in all extremities. No swelling noted. LABORATORY FINDINGS: White count 6.6, hemoglobin 8.8, hematocrit 26.3, platelets 133. Sodium 135, potassium 5.4, chloride 98, carbon dioxide 25, BUN 42, creatinine 5.57, glucose 217, phos 3.6, and magnesium 2.7. DIAGNOSTIC FINDINGS: CT of the brain without contrast shows no acute intracranial process. CT angiography of the neck with and without contrast demonstrates unremarkable CT angiogram of head and neck, no significant stenosis upon NASCET criteria. ASSESSMENT: 1. Status post ground level fall. 2. Left femoral neck fracture. 3. Electrolyte derangements. 4. History of end-stage renal disease, congenital heart failure. 5. Status post nephrectomy, type 2 diabetes, hypertension, depression. 6. Acute traumatic pain. 7. Transient ischemic attack. PLAN: The patient received an EKG, which demonstrated no significant changes from previous. Troponins were also completed and negative. EKG demonstrated also no ectopy with a regular rate and rhythm. Speech to see the patient and perform a cognitive as well as a swallow evaluation. If deemed she is not able to swallow, we will hold diet and change all medications to IV form. We will continue to monitor the patient very closely. We will have Physical and Occupational see the patient as well. The patient was discussed with Dr. Jones today. Job ID: [id number]
[2018-05-23] MEDS: Heparin 5,000 UNITS/ML VIAL SC SCH ×2 (16:21→20:18)
[2018-05-23 16:47] LABS: CKMB 0.5 ng/mL (0-6.6)
[2018-05-23 22:53] LABS: CKMB 0.6 ng/mL (0-6.6)
[2018-05-24] MEDS: HumaLOG 300 UNITS/3 ML VIAL SC PRN ×3 (04:09→19:52)
[2018-05-24 06:49] LABS: #Eosinphils 0.1 thou/uL (0.0-0.7); #Lymphocytes 0.8 thou/uL (1.20-3.40); #Monocytes 0.4 thou/uL (0.11-0.59); #Neutrophils 3.6 thou/uL (1.40-6.50); %Basophils 0.4 % (0.0-1.0); %Eosinophils 1.4 % (0.0-10.0); %Lymphocytes 15.9 % (21.0-51.0); %Monocytes 7.9 % (0.0-10.0); %Neutrophils 74.4 % (42.0-75.0); Mean Corpuscular HGB CONC 32.3 g/dL (32.0-36.0); Mean Corpuscular Hemoglobin 28.9 pg (27.0-31.0); Mean Corpuscular Volume 89.6 fL (78.0-98.0); Mean Platelet Volume 8.2 fL (7.4-10.4); Platelet Count 169 thou/uL (130-400); RBC Distribution Width 15.5 % (11.5-14.5); Red Blood Cell (RBC) Count 2.77 mill/uL (4.20-5.40); White Blood Cell (WBC) Count 4.8 thou/uL (4.8-10.8)
[2018-05-24 07:17] LABS: Anion Gap 17 mmol/L (10-20); BUN (Urea Nitrogen) 63 mg/dL (9.8-20.1); Calc. Creatinine Clearance 9 mL/min (70-130); Calcium 9.5 mg/dL (7.8-10.44); Carbon Dioxide 26 mmol/L (23-31); Chloride 98 mmol/L (98-107); Estimated GFR-MDRD 6; Glucose 188 mg/dL (80-115); Magnesium 2.9 mg/dL (1.6-2.6); Phosphorus 4.6 mg/dL (2.3-4.7); Potassium 5.2 mmol/L (3.5-5.1); Sodium 136 mmol/L (136-145)
[2018-05-24] MEDS: Heparin 5,000 UNITS/ML VIAL SC SCH ×3 (08:01→19:52)
--- NOTE | 2018-05-24 09:22 | PRG ---
DATE OF SERVICE: 05/24/2018 SUBJECTIVE: Ms. Nicole is a 72-year-old female with ESRD and was admitted due to a left intertrochanteric femur fracture. She underwent left femur intramedullary nail. Yesterday, she was noted to be more somnolent. CT angio of the head was done and it was an unremarkable CT angiogram of the head and neck. No significant stenosis was noted. We are currently dialyzing the patient. She is tolerating said treatment. No new complaints. OBJECTIVE: VITAL SIGNS: Blood pressure 115/70, heart rate 91, respiratory rate 16, temperature 98.3, and pulse ox 94%. GENERAL: Awake, alert, comfortable. SKIN: Adequate turgor. HEENT: She has a slightly pale conjunctivae. Anicteric sclerae. No neck mass. No carotid bruits. No JVD. CHEST: No deformities. LUNGS: Clear breath sounds. HEART: Normal sinus rhythm. No murmurs, gallops, or rubs. ABDOMEN: Globular, soft, nontender. No masses. EXTREMITIES: No edema. No deformities. MEDICATIONS: Medications of May 24, 2018, was reviewed. LABORATORY DATA: Laboratory of May 24, 2018, white count 4.8, hemoglobin 8, sodium 136, potassium 5.2, chloride 98, carbon dioxide 26, BUN 63, creatinine 6.86, glucose 188, magnesium 2.9, phosphorus 4.6. ASSESSMENT AND PLAN: 1. End-stage renal disease, stable. We will continue current hemodialysis regimen of Wednesday, , and Wednesday. Fluid removal as tolerated. 2. Anemia, on weekly Epogen and iron supplementation. 3. The patient is status post left intertrochanteric femoral fracture, the patient underwent left femur intramedullary nailing, doing well. Job ID: [id number]
[2018-05-24] MEDS: Famotidine/PF 20 mg/2ml Vial SLOW IVP SCH (12:15)
[2018-05-25] MEDS: HumaLOG 300 UNITS/3 ML VIAL SC PRN ×4 (00:08→23:34)
[2018-05-25] MEDS: Heparin 5,000 UNITS/ML VIAL SC SCH ×3 (08:39→20:38)
[2018-05-25] MEDS: Famotidine/PF 20 mg/2ml Vial SLOW IVP SCH (08:39)
--- NOTE | 2018-05-25 10:09 | PRG ---
DATE OF SERVICE: 05/25/2018 SUBJECTIVE: The patient is a 72-year-old female with ESRD on maintenance hemodialysis and was admitted for left intertrochanteric femur fracture. She underwent left femur intramedullary nailing. Awaiting rehab/alf placement. No other complaints. She tolerated dialysis yesterday. OBJECTIVE: VITAL SIGNS: Blood pressure 134/74, heart rate 90, respiratory rate 16, temperature 98.3, and pulse ox 93%. GENERAL: Awake, alert, and comfortable, not in distress. SKIN: Adequate turgor. HEENT: Pinkish conjunctivae. Anicteric sclerae. NECK: No neck mass. No carotid bruits. No JVD. CHEST: No deformities. LUNGS: Clear breath sounds. No wheezing. No crackles. HEART: Normal sinus rhythm. No murmur. No gallops. No rubs. ABDOMEN: Globular, soft, and nontender. No masses. EXTREMITIES: No edema. No deformities. MEDICATIONS: Medications of May 25, 2018, reviewed. LABORATORY DATA: Laboratories of May 24, 2018; white count 4.8, hemoglobin 8. Sodium 136, potassium 5.2, chloride 98, carbon dioxide 26, BUN 63, creatinine 6.86, glucose 188, and magnesium 2.9. ASSESSMENT AND PLAN: 1. End-stage renal disease - stable, continuing Wednesday, , and Wednesday dialysis regimen. Fluid removal only as tolerated. 2. Anemia. Continue weekly Epogen with this patient. 3. The patient is status post left hip surgery, stable and doing well. 4. Overall agree with current management. Job ID: [id number]
[2018-05-25] MEDS ORDERED: Acetaminophen 650 MG/20.3 ML UDCUP PO SCH (11:00)
[2018-05-25] MEDS ORDERED: Morphine 4 MG/ML VIAL SLOW IVP PRN (11:00)
[2018-05-25] MEDS ORDERED: Acetaminophen/Codeine Oral Solution PO SCH (11:15)
--- NOTE | 2018-05-25 14:46 | PRG ---
DATE OF SERVICE: 05/25/2018 SUBJECTIVE: The patient is currently on the surgical floor. She is status post ground level fall when she sustained a left femoral neck fracture. She has undergone operative procedure to prepare this which she has tolerated well. The patient also has end-stage renal disease, which she requires dialysis yesterday. She underwent dialysis this morning. She feels fatigued and a little bit tired. Her family states that she was awakened, had some breakfast, and then has subsequently gone to sleep. The also asked if we can ensure that all of her pain medications are crushable for her to be able to take them with her other foods due to having some difficulty swallowing. OBJECTIVE: VITAL SIGNS: Temperature is 98.3, heart rate 90, blood pressure 134/74, respirations 16, oxygen saturation 93% on room air. GENERAL: The patient appears to be resting comfortably. She is asleep at this time. She did wake up briefly to verbal stimuli, but we allowed her to rest this morning. She is due to work with Physical and Occupational Therapy today and discussions have been started regarding placement. The family is requesting rehab that she was in recently status post a stroke, but after this fall, the patient has become markedly more weak and may not be able to tolerate the 3 hours of physical therapy. The patient may require [facility] facility placement first until her stamina improves. HEENT: Unremarkable. LUNGS: Clear to auscultation bilaterally with equal rise and fall of the chest. HEART: Regular rate and rhythm. ABDOMEN: Soft, nontender with active bowel sounds. EXTREMITIES: Neurovascularly intact x4. Postop dressing is clean, dry, and intact. LABORATORY DATA: There are no labs or radiographs to review this morning. ASSESSMENT/PLAN: 1. Status post ground level fall. 2. Status post open reduction and internal fixation of left femoral neck fracture. 3. End-stage renal disease, on dialysis. 4. Multiple comorbidities. Plan will be to continue supportive care. The patient is scheduled for dialysis tomorrow, physical and occupational therapy, and await final placement determination. The patient was evaluated this morning with Dr. Virgen. Job ID: [id number]
[2018-05-25] MEDS: HYDROcodone/Chlorphen Polis 5 ML UDCUP PO SCH (15:02)
--- NOTE | 2018-05-25 15:28 | PRG ---
DATE OF SERVICE: 05/24/2018 SUBJECTIVE: A 72-year-old female, who is status post mechanical fall from standing with a left femoral neck fracture. She is postop day #2, status post left femur IM nail. Per nurse note, she did well through the night. We were unable to examine the patient as she was at dialysis. There was a report that her right-sided facial droop and weakness have mildly improved. Of note, the patient did have a recent CVA with left-sided weakness 6 weeks ago. This patient has been hemodynamically stable. Apparently, there were concerns about her ability to swallow. Speech therapy is planning on reevaluating. OBJECTIVE: VITAL SIGNS: Temperature 98.3, pulse 91, respirations 16, O2 sat 94 % on room air, blood pressure 115/70. Physical exam is unable to access at this time since the patient is in dialysis. LABORATORY DATA: WBC 4.8, hemoglobin 8.9, hematocrit 24.8. Sodium 136, potassium 5.2, chloride 26, BUN 63, creatinine 6.86, GFR 6, phosphorus 4.6, magnesium 2.1. DIAGNOSTIC IMAGING: There is no new imaging for us to review today. ASSESSMENT: 1. Status post ground level fall. 2. Left femoral fracture, status post intramedullary nail, postop day 2. 3. Electrolyte derangement, on hemodialysis. 4. History of end-stage renal disease with congestive heart failure. 5. Status post nephrectomy, type 2 diabetes, hypertension, depression. 6. History of transient ischemic attack. 7. History of cerebrovascular accident. PLAN: 1. We will continue current pain regimen as it is reported her pain is currently under control. 2. In regard to electrolyte derangements, she is receiving dialysis today and we will recheck in the morning. 3. We will ask Speech Therapy come reassess her today to see if it would be possible to advance her diet. In the meantime, we will continue fluid as she is n.p.o. and have Nutrition follow along for her free water protocol replacement. 4. Placement: Order is placed for rehab screen as the patient will likely need this upon discharge. 5. In the meantime, due to her n.p.o. status, we will continue IV medications. Once the patient can tolerate PO we will transition to oral. The patient will be seen and examined by Dr. Eric Virgen. Pending stability after hemodialysis. Job ID: [id number] [facility]
[2018-05-26] MEDS: HYDROcodone/Chlorphen Polis 5 ML UDCUP PO SCH (00:27)
[2018-05-26 05:27] LABS: #Lymphocytes 1.1 thou/uL (1.20-3.40); #Monocytes 0.5 thou/uL (0.11-0.59); #Neutrophils 1.8 thou/uL (1.40-6.50); %Basophils 1.1 % (0.0-1.0); %Lymphocytes 31.3 % (21.0-51.0); %Monocytes 13.6 % (0.0-10.0); %Neutrophils 52.9 % (42.0-75.0); Hemoglobin 7.6 g/dL (12.0-16.0); Mean Corpuscular Hemoglobin 29.8 pg (27.0-31.0); Mean Corpuscular Volume 90.3 fL (78.0-98.0); Mean Platelet Volume 7.5 fL (7.4-10.4); Platelet Count 176 thou/uL (130-400); RBC Distribution Width 15.3 % (11.5-14.5); Red Blood Cell (RBC) Count 2.55 mill/uL (4.20-5.40); White Blood Cell (WBC) Count 3.4 thou/uL (4.8-10.8)
[2018-05-26 05:47] LABS: Anion Gap 21 mmol/L (10-20); BUN (Urea Nitrogen) 78 mg/dL (9.8-20.1); Calc. Creatinine Clearance 9 mL/min (70-130); Carbon Dioxide 24 mmol/L (23-31); Chloride 98 mmol/L (98-107); Estimated GFR-MDRD 6; Glucose 180 mg/dL (80-115); Potassium 4.6 mmol/L (3.5-5.1); Sodium 138 mmol/L (136-145)
[2018-05-26] MEDS: Famotidine/PF 20 mg/2ml Vial SLOW IVP SCH (09:00)
[2018-05-26] MEDS: Polyethylene Glycol 3350 17 GM Packet PO SCH (09:00)
[2018-05-26] MEDS: Heparin 5,000 UNITS/ML VIAL SC SCH ×3 (09:00→20:34)
[2018-05-26] MEDS: Hydrocodone-Acetamin 15 ML UDCUP PO SCH ×2 (09:00→20:33)
[2018-05-26] MEDS: Senokot 8.6 MG TAB PO SCH ×2 (09:00→20:34)
[2018-05-26] MEDS: Insulin Glargine 5 UNITS in Pre-Filled Syringe 1 EACH SC SCH (12:54)
[2018-05-26] MEDS: HumaLOG 300 UNITS/3 ML VIAL SC PRN ×4 (12:54→23:29)
[2018-05-26] MEDS: Sevelamer Carbonate 800 MG TAB PO SCH ×2 (12:56→16:16)
[2018-05-26] MEDS: Ferrous Sulfate 325 MG TAB PO SCH (16:07)
[2018-05-26] MEDS: Atorvastatin Calcium 40 MG TAB PO SCH (20:34)
--- NOTE | 2018-05-26 20:46 | PRG ---
DATE OF SERVICE: 05/26/2018 SUBJECTIVE: A 72-year-old female with severe right-sided weakness following CVA, as well as end-stage renal disease on hemodialysis, who was admitted after a fall during which she sustained a left-sided hip fracture. The patient is status post open reduction and internal fixation. No new problem. Nephrology is consulted for maintenance dialysis. OBJECTIVE: VITAL SIGNS: Blood pressure 137/68, pulse 86, respiratory rate 16, and SpO2 100% on room air. GENERAL: Conscious and alert, oriented x3 with appropriate mental status. Not in distress. HEENT: Normocephalic and atraumatic. CARDIAC: Regular rhythm and rate with normal heart sounds 1 and 2. LUNGS: Good air entry bilaterally with no obvious crackle or rhonchi. ABDOMEN: Full, soft, nontender, nondistended with normal bowel sounds. EXTREMITIES: Left-sided hip dressing noted. NEUROLOGIC: Conscious and alert, oriented x3 with appropriate mental status. DIAGNOSTIC DATA: CBC showed WBC count of 3.4, hemoglobin of 7.6, and platelet of 176. BMP showed sodium 138, potassium 4.6, chloride 98, CO2 24, BUN 78, creatinine 6.55, and glucose 180. ASSESSMENT AND PLAN: 1. End-stage renal disease, on maintenance hemodialysis on Wednesday, , and Wednesday. The patient will be dialyzed today with fluid removal as tolerated. 2. Anemia: We will continue Epogen weekly. 3. Left-sided hip fracture, status post hip surgery. We will defer to the primary team for rehabilitation. 4. Hypertension: Blood pressure control is acceptable. Job ID: [id number]
[2018-05-27] MEDS: Senokot 8.6 MG TAB PO SCH ×2 (08:56→20:45)
[2018-05-27] MEDS: Polyethylene Glycol 3350 17 GM Packet PO SCH (08:56)
[2018-05-27] MEDS: Ferrous Sulfate 325 MG TAB PO SCH ×2 (08:56→17:33)
[2018-05-27] MEDS: Famotidine 20 MG TAB PO SCH (08:56)
[2018-05-27] MEDS: Sevelamer Carbonate 800 MG TAB PO SCH ×3 (08:57→17:38)
[2018-05-27] MEDS: Hydrocodone-Acetamin 15 ML UDCUP PO SCH ×2 (08:57→20:42)
[2018-05-27] MEDS: Insulin Glargine 5 UNITS in Pre-Filled Syringe 1 EACH SC SCH (08:57)
[2018-05-27] MEDS: Heparin 5,000 UNITS/ML VIAL SC SCH ×3 (08:57→20:44)
[2018-05-27] MEDS: HumaLOG 300 UNITS/3 ML VIAL SC PRN ×3 (11:20→23:09)
--- NOTE | 2018-05-27 15:06 | PRG ---
DATE OF SERVICE: 05/27/2018 SUBJECTIVE: This is a 72-year-old female, status post ground level fall with a left femoral neck fracture. The patient is postop day #5 open reduction and internal fixation of left femoral neck fracture. The pt has left sided residual weakness from a .CVA 03/29. The patient had no overnight events. The patient is eating and sleeping well. The patient also reports that her pain is well controlled. The patient did receive her scheduled dialysis yesterday. OBJECTIVE: VITAL SIGNS: Temperature 99.1, pulse 87, respirations 14, SpO2 of 97% on room air. Blood pressure 143/75. GENERAL: The patient appears comfortable, in no distress. HEENT: Unremarkable. LUNGS: Clear to auscultation bilaterally with equal chest rise and fall, no distress. HEART: Regular rate and rhythm. ABDOMEN: Soft, nontender with active bowel sounds. EXTREMITIES: Postop dressing clean, dry, and intact. LLE with 2+ pedal pulse. No pedal edema. LABORATORY DATA: There are no labs to evaluate today. ASSESSMENT: 1. Status post ground level fall. 2. Status post open reduction internal fixation of left femoral neck fracture. 3. End-stage renal disease, on dialysis Wednesday, , Wednesday. 4. Multiple comorbidities. 5. History of chronic anemia, on Epogen weekly. 6. History of hypertension. PLAN: We will continue DVT prophylaxis and continue comfort care. The patient is scheduled for dialysis tomorrow. We will continue physical and occupational therapy. The patient is pending placement to [facility]. The patient was evaluated with Dr. Virgen this morning during rounds. [facility] ID: [id number] [facility]
[2018-05-27] MEDS: Atorvastatin Calcium 40 MG TAB PO SCH (20:45)
[2018-05-28] MEDS: HumaLOG 300 UNITS/3 ML VIAL SC PRN ×2 (06:47→18:19)
[2018-05-28] MEDS: Famotidine 20 MG TAB PO SCH (07:53)
[2018-05-28] MEDS: Sevelamer Carbonate 800 MG TAB PO SCH ×3 (07:53→18:04)
[2018-05-28] MEDS: Ferrous Sulfate 325 MG TAB PO SCH ×2 (07:53→18:19)
[2018-05-28] MEDS: Heparin 5,000 UNITS/ML VIAL SC SCH ×3 (07:53→21:36)
[2018-05-28] MEDS: Polyethylene Glycol 3350 17 GM Packet PO SCH (07:54)
[2018-05-28] MEDS: Senokot 8.6 MG TAB PO SCH ×2 (07:54→22:16)
--- NOTE | 2018-05-28 08:40 | PRG ---
DATE OF SERVICE: 05/28/2018 SUBJECTIVE: A 72-year-old with end-stage renal disease, who was admitted after a fall, during which she sustained a left femoral fracture. No new events. Reportedly was very drowsy yesterday, but is awake today and has no new complaints. Denied nausea, chest pain, or headache. OBJECTIVE: VITAL SIGNS: BP 147/73, pulse 92, respiratory rate 18, temperature 99.4, SpO2 of 95% on room air. GENERAL: Comfortable, elderly female, in no obvious distress. HEENT: Normocephalic and atraumatic. Oral mucosa is moist. RESPIRATORY: Fair air entry bilaterally with no distress. CARDIAC: Regular rhythm and rate with normal heart sounds 1 and 2. GI: Abdomen is soft, nontender, nondistended with normal bowel sounds. EXTREMITIES: Grossly normal with no edema or erythema. NEUROLOGIC: Conscious, alert, and oriented x3. Left-sided weakness appreciated. MUSCULOSKELETAL: Left lateral hip and thigh swelling and dressing noted. ASSESSMENT AND PLAN: 1. End-stage renal disease, on maintenance hemodialysis, on Wednesday, , and Wednesday. The patient is due for dialysis today. She will have 3-hours of hemodialysis with UF as tolerated. 2. Anemia: We will continue Epogen weekly. 3. Left-sided hip fracture, status post open reduction and internal fixation. Restorative therapy deferred to the primary team. 4. Hypertension. Blood pressure control is acceptable. We will continue current antihypertensives. DISPOSITION: The patient can be discharged from nephrology point of view to continue outpatient hemodialysis treatments. Job ID: [id number]
--- NOTE | 2018-05-28 11:43 | PRG ---
DATE OF SERVICE: 05/28/2018 SUBJECTIVE: This is a 72-year-old female, status post ground level fall with a left femoral neck fracture. The patient is postop day #6, open reduction and internal fixation of left femoral neck fracture. The patient did have decreased appetite yesterday and seemed to be drowsy yesterday evening per her nurse. The patient did have a bowel movement earlier this morning. The patient is currently in dialysis for her scheduled hemodialysis currently. The patient is resting with eyes closed, but arouses easily. The patient voices no complaints at this time and reports that she did sleep well. OBJECTIVE: VITAL SIGNS: Temperature 99.1, pulse 95, respirations 14, SpO2 99% on room air, blood pressure 154/80. GENERAL: The patient in no distress, appears comfortable, receiving dialysis. HEENT: Unremarkable. RESPIRATORY: Equal chest rise and fall. No respiratory distress. Mild rhonchi noted bilaterally. HEART: Regular rate and rhythm. No murmur noted. ABDOMEN: Soft, nontender, nondistended. Positive active bowel sounds. EXTREMITIES: Postop dressing intact with a mild serous drainage. No pedal edema. LABORATORY/DIAGNOSTIC DATA: There is no laboratory data or diagnostics to review today. ASSESSMENT: 1. Status post ground level fall. 2. Status post open reduction and internal fixation of left femoral neck fracture, postoperative day 5. 3. End-stage renal disease on dialysis, Wednesday, , Wednesday. 4. Multiple comorbidities. 5. History of chronic anemia on Epogen weekly. 6. History of hypertension. 7. End Stage Renal Disease on dialysis. PLAN: We will continue comfort care. We will continue physical and occupational therapy. The patient is pending placement to [facility] facility, which has been delayed as the patient needs a private room due to receiving dialysis. We will consult dietitian. This patient has been having a decrease in appetite. We will encourage pulmonary toilet. The patient was discussed with Dr. Virgen and agrees with the plan. Job ID: [id number] [facility]
[2018-05-28] MEDS: Hydrocodone-Acetamin 15 ML UDCUP PO SCH ×2 (12:18→21:35)
[2018-05-28] MEDS: Insulin Glargine 5 UNITS in Pre-Filled Syringe 1 EACH SC SCH (12:18)
[2018-05-28] MEDS: Atorvastatin Calcium 40 MG TAB PO SCH (21:36)
[2018-05-29] MEDS: HumaLOG 300 UNITS/3 ML VIAL SC PRN ×5 (00:05→21:18)
[2018-05-29] MEDS: Insulin Glargine 5 UNITS in Pre-Filled Syringe 1 EACH SC SCH (08:39)
[2018-05-29] MEDS: Senokot 8.6 MG TAB PO SCH ×2 (08:39→21:27)
[2018-05-29] MEDS: Famotidine 20 MG TAB PO SCH (08:39)
[2018-05-29] MEDS: Polyethylene Glycol 3350 17 GM Packet PO SCH (08:39)
[2018-05-29] MEDS: Ferrous Sulfate 325 MG TAB PO SCH ×2 (08:40→16:24)
[2018-05-29] MEDS: Hydrocodone-Acetamin 15 ML UDCUP PO SCH ×2 (08:40→21:18)
[2018-05-29] MEDS: Heparin 5,000 UNITS/ML VIAL SC SCH ×3 (08:40→21:18)
[2018-05-29] MEDS: Sevelamer Carbonate 800 MG TAB PO SCH ×3 (09:01→16:18)
[2018-05-29] MEDS: Epoetin (ESRD) 20,000 UNITS/ML SC SCH (11:49)
--- NOTE | 2018-05-29 15:21 | PRG ---
DATE OF SERVICE: 05/29/2018 SUBJECTIVE: This is a 72-year-old female status post ground level fall with left femoral neck fracture. CVA with residual 03/29 with left sided weakness. The patient is postop day #7 open reduction and internal fixation of the left femoral neck fracture. The patient continues to have a decrease in appetite, but seems to be more alert this morning. The patient continues to have bowel movements and continues to have good urine output per diaper. The patient's states she did drink half of Ensure yesterday. The patient did receive her dialysis yesterday. OBJECTIVE: VITAL SIGNS: Temperature 98.3, pulse 84, respirations 16, SpO2 of 95% on room air and blood pressure 120/73. GENERAL: The patient is awake, alert, sitting up in bed, in no distress. HEENT: Unremarkable. RESPIRATORY: Equal chest rise and fall. No respiratory distress. Bilateral breath sounds equal. HEART: Regular rate and rhythm. No murmur. ABDOMEN: Soft, nontender, nondistended with active bowel sounds. EXTREMITIES: Postop dressing to left hip clean, dry, and intact. 2+ distal pedal pulses. LABORATORY DATA: Dialysis blood culture draw preliminary on 05/28/2018, no growth to date. IMPRESSION: 1. Status post ground level fall. 2. Status post open reduction and internal fixation of the left femoral neck fracture, postop day #7 3. End-stage renal disease, on dialysis Wednesday, , Wednesday. 4. Multiple comorbidities. 5. History of chronic anemia, on Epogen weekly. 6. History of hypertension. 7. History of CVA with residual left sided deficit. PLAN: We will continue comfort care. We will encourage and continue physical and occupational therapy. The patient continues to await placement for correction facility for continued rehab. The patient continues to be delayed placement due to needing a private room due to her receiving dialysis. We will encourage the patient to use supplements and increase her diet. Also continue to encourage pulmonary toilet. The plan was discussed with the patient and , who agree. The patient was also discussed with the attending surgeon, Dr. Virgen, who agrees. Job ID: [id number] [facility]
[2018-05-29] MEDS: Atorvastatin Calcium 40 MG TAB PO SCH (21:18)
[2018-05-30] MEDS: HumaLOG 300 UNITS/3 ML VIAL SC PRN ×4 (05:25→21:25)
[2018-05-30] MEDS: Hydrocodone-Acetamin 15 ML UDCUP PO SCH ×2 (08:02→20:49)
[2018-05-30] MEDS: Sevelamer Carbonate 800 MG TAB PO SCH ×3 (08:04→17:31)
[2018-05-30] MEDS: Senokot 8.6 MG TAB PO SCH ×2 (08:04→20:51)
[2018-05-30] MEDS: Insulin Glargine 8 UNITS in Pre-Filled Syringe 1 EACH SC SCH (08:05)
[2018-05-30] MEDS: Ferrous Sulfate 325 MG TAB PO SCH ×2 (08:05→16:51)
[2018-05-30] MEDS: Heparin 5,000 UNITS/ML VIAL SC SCH ×3 (08:05→21:25)
[2018-05-30] MEDS: Famotidine 20 MG TAB PO SCH (08:05)
[2018-05-30] MEDS: Polyethylene Glycol 3350 17 GM Packet PO SCH (08:06)
--- NOTE | 2018-05-30 10:13 | PRG ---
DATE OF SERVICE: 05/30/2018 SUBJECTIVE: Ms. Nicole is a 72-year-old female with ESRD and recently had a fall. She underwent an operative procedure-left intertrochanteric femur fracture. No new complaints today, doing well. No complaints of chest pain or shortness of breath. OBJECTIVE: VITAL SIGNS: Blood pressure is 124/65, heart rate 71, respiratory rate 17, temperature 97.5, pulse ox 100%. GENERAL: Awake, alert, and comfortable. SKIN: Adequate turgor. HEENT: Slightly pale conjunctivae. Anicteric sclerae. No neck mass. No carotid bruits. No JVD. CHEST: No deformities. LUNGS: Clear breath sounds. No wheezing. No crackles. HEART: Normal sinus rhythm. No murmur. No gallops. No rubs. ABDOMEN: Globular, soft, and nontender. EXTREMITIES: No edema. No deformities. MEDICATIONS: Medications of May 30, 2018, was reviewed. LABORATORY DATA: Laboratories on May 26, 2018; white count 3.4, hemoglobin 7.6. On May 30, 2018, glucose 237. ASSESSMENT AND PLAN: 1. End-stage renal disease, stable. Continuing current Wednesday, , and Wednesday hemodialysis regimen. Fluid removal as tolerated. 2. Anemia, on weekly Epogen. Recheck CBC, basic metabolic profile. 3. Status post fall with left hip fracture-the patient has undergone left femoral intramedullary nailing. Doing well. Awaiting intermediate placement. Job ID: [id number]
[2018-05-30] MEDS: Nystatin 500,000 UNITS/5 ML UDCUP SSW SCH ×4 (11:13→20:51)
--- NOTE | 2018-05-30 16:42 | PRG ---
DATE OF SERVICE: 05/30/2018 SUBJECTIVE: This is a 72-year-old female, status post ground level fall with left femoral neck fracture. The patient is postop day #7 with open reduction and internal fixation of her left femoral neck fracture. The patient did have a CVA in March 2018 and was placed in inpatient rehab. The patient continues to have residual left-sided weakness. The patient is sitting up in the chair today, seems to be more alert and talkative today. The patient continues to have bowel movements and continues to have good urine output per diaper. The patient's does report the patient has had some sort of rash/fungus on her tongue in the last couple of days. OBJECTIVE: VITAL SIGNS: Blood pressure 124/65, temperature 97.5, pulse 71, respirations 17, and SpO2 100% on room air. GENERAL: The patient is awake and alert, in no distress, sitting up in the chair. HEENT: Residual left facial droop and poor dentition. The patient does have a creamy white lesions on the tongue. RESPIRATORY: No respiratory distress. Respirations equal and unlabored. HEART: Rate and rhythm. No murmurs. ABDOMEN: Soft, nontender, and nondistended. EXTREMITIES: Postop dressing left hip clean, dry, and intact. The patient with 2+ distal pulses. No ankle edema. The patient does have left-sided weakness from her CVA. LABORATORY DATA: No labs to evaluate today. IMPRESSION: 1. Status post ground level fall. 2. Status post open reduction and internal fixation of left femoral neck fracture, postop day #8. 3. End-stage renal disease, on dialysis Wednesday, , and Wednesday. 4. Multiple comorbidities. 5. History of chronic anemia, on Epogen weekly. 6. History of hypertension. 7. History of cerebrovascular accident with residual left-sided deficits. 8. Oral Lili. PLAN: We will continue comfort measures. We will encourage Physical Therapy and Occupational Therapy. We will continue to encourage the patient to get up to the chair during the day. We will start the patient on nystatin mouth swishes for her thrush. The plan has been discussed with the patient and , who agreed. The patient was seen by Dr. Virgen during morning rounds. Job ID: [id number]
[2018-05-30] MEDS: Atorvastatin Calcium 40 MG TAB PO SCH (20:50)
[2018-05-31] MEDS: HumaLOG 300 UNITS/3 ML VIAL SC PRN ×2 (06:27→21:33)
[2018-05-31] MEDS: Hydrocodone-Acetamin 15 ML UDCUP PO SCH (07:33)
[2018-05-31] MEDS: Nystatin 500,000 UNITS/5 ML UDCUP SSW SCH ×4 (07:34→21:51)
[2018-05-31] MEDS: Heparin 5,000 UNITS/ML VIAL SC SCH ×3 (07:34→21:32)
[2018-05-31] MEDS: Insulin Glargine 8 UNITS in Pre-Filled Syringe 1 EACH SC SCH (07:35)
[2018-05-31] MEDS: Ferrous Sulfate 325 MG TAB PO SCH ×2 (07:35→17:22)
[2018-05-31] MEDS: Famotidine 20 MG TAB PO SCH (07:35)
[2018-05-31] MEDS: Senokot 8.6 MG TAB PO SCH ×2 (07:35→21:32)
[2018-05-31] MEDS: Sevelamer Carbonate 800 MG TAB PO SCH ×3 (09:17→17:58)
[2018-05-31] MEDS: Polyethylene Glycol 3350 17 GM Packet PO SCH (09:18)
--- NOTE | 2018-05-31 09:51 | PRG ---
DATE OF SERVICE: 05/31/2018 SUBJECTIVE: Ms. Nicole is a 72-year-old female with ESRD and was admitted due to a fall. The patient was noted to have had a left intertrochanteric femoral fracture and has undergone left femoral intramedullary nailing. No new complaints today. I am at the dialysis supervising her treatment. I am at the bedside. No other complaints. No chest pain or shortness of breath. PHYSICAL EXAMINATION: VITAL SIGNS: Blood pressure 125/71, heart rate 70, respiratory rate 18, temperature 97.5, pulse ox 98%. GENERAL: Noted to be awake, alert, comfortable, not in distress. SKIN: Adequate turgor. HEENT: Slightly pale conjunctivae. Anicteric sclerae. No neck mass. No carotid bruits. No JVD. CHEST: No deformities. LUNGS: Clear breath sounds. No wheezing. No crackles. HEART: Normal sinus rhythm. No murmurs, gallops, or rubs. ABDOMEN: Globular, soft, nontender. No masses. EXTREMITIES: No edema. No deformities. MEDICATIONS: Medications of May 31, 2018, reviewed. LABORATORY DATA: Laboratories of May 26, 2018; white count 3.4, hemoglobin 7.6. On May 31, 2018, glucose 238. ASSESSMENT AND PLAN: 1. End-stage renal disease, stable. We will continue current hemodialysis regimen of Wednesday, , and Wednesday. 2. Anemia. P.r.n. blood transfusion. Continuing weekly Epogen. I would at least recheck another basic metabolic profile and CBC in a.m. 3. The patient is status post left femoral intertrochanteric fracture-stable. She underwent left femoral intramedullary nailing. Orthopedic following. Awaiting [facility] facility placement. Job ID: [id number]
--- NOTE | 2018-05-31 13:26 | PRG ---
DATE OF SERVICE: 05/31/2018 SUBJECTIVE: The patient was seen this afternoon after her morning dialysis. She was well appearing and reported that her pain was well controlled. She also stated that her appetite was increasing. Her at bedside reported that her diet was also improving. She was talkative and making eye contact. She denied any nausea, vomiting, or diarrhea. OBJECTIVE: VITAL SIGNS: Temperature 97.5, pulse 70, respirations 18, oxygen 98% on room air, and blood pressure 125/71. GENERAL: Well-appearing elderly female, sitting up in bed with no signs of acute distress. Alert and oriented. HEAD, EYES, EARS, NOSE, THROAT: Residual left-sided facial droop with poor dentition. Creamy lesion to tongue. No right-sided facial droop or weakness. RESPIRATORY: No signs of acute respiratory distress. Equal chest rise and fall. Clear breath sounds bilaterally. HEART: Regular rate and rhythm. No murmurs, gallops, or rubs. ABDOMEN: Soft, nontender, and nondistended. EXTREMITIES: Postoperative dressing to left hip clean, dry, and intact. Dialysis fistula to right upper extremity. 2+ pulses in all extremities. Gross motor and sensation intact with stable left-sided weakness from previous CVA. LABORATORY FINDINGS: There are no laboratory findings to discuss. DIAGNOSTIC FINDINGS: There are no diagnostic findings to discuss. ASSESSMENT: 1. Status post ground level fall. 2. Left femoral neck fracture, status post open reduction and internal fixation. 3. History of end-stage renal disease, on dialysis Wednesday, , and Wednesday. 4. History of chronic anemia, hypertension, cerebrovascular accident, transient ischemic attack, diabetes, depression, congenital heart failure. 5. Oral Lili. PLAN: The patient is pending placement at [facility]. She is ready to be discharged. We will continue to provide supportive care with physical and occupational therapy. We will continue dialysis Wednesday, , and Wednesday. Dr. Washington is still following. We will complete blood work in a.m. per the request of Dr. Washington. Yesterday, her Lantus was increased. We will continue to monitor her blood sugar and make further adjustments tomorrow. We will continue nystatin for oral Lili. The patient was seen and examined by Dr. Virgen and myself this morning during rounds. Job ID: [id number]
[2018-05-31] MEDS: Acetaminophen 500 MG TAB PO SCH ×3 (17:22→21:32)
[2018-05-31] MEDS ORDERED: Hydrocodone-Acetamin 15 ML UDCUP PO SCH (21:00)
[2018-05-31] MEDS: Atorvastatin Calcium 40 MG TAB PO SCH (21:32)
[2018-06-01] MEDS: HumaLOG 300 UNITS/3 ML VIAL SC PRN ×3 (06:09→16:26)
[2018-06-01] MEDS: Acetaminophen 500 MG TAB PO SCH ×3 (06:09→17:35)
[2018-06-01 07:17] LABS: #Eosinphils 0.1 thou/uL (0.0-0.7); #Lymphocytes 1.3 thou/uL (1.20-3.40); #Monocytes 0.6 thou/uL (0.11-0.59); #Neutrophils 5.9 thou/uL (1.40-6.50); %Basophils 0.1 % (0.0-1.0); %Eosinophils 1.2 % (0.0-10.0); %Lymphocytes 16.7 % (21.0-51.0); %Monocytes 7.2 % (0.0-10.0); %Neutrophils 74.8 % (42.0-75.0); Mean Corpuscular HGB CONC 31.8 g/dL (32.0-36.0); Mean Corpuscular Hemoglobin 28.4 pg (27.0-31.0); Mean Corpuscular Volume 89.6 fL (78.0-98.0); Mean Platelet Volume 7.3 fL (7.4-10.4); Platelet Count 234 thou/uL (130-400); RBC Distribution Width 14.8 % (11.5-14.5); Red Blood Cell (RBC) Count 3.51 mill/uL (4.20-5.40); White Blood Cell (WBC) Count 7.9 thou/uL (4.8-10.8)
[2018-06-01 07:31] LABS: Anion Gap 17 mmol/L (10-20); BUN (Urea Nitrogen) 33 mg/dL (9.8-20.1); Calc. Creatinine Clearance 13 mL/min (70-130); Calcium 9.1 mg/dL (7.8-10.44); Carbon Dioxide 26 mmol/L (23-31); Chloride 95 mmol/L (98-107); Estimated GFR-MDRD 9; Glucose 202 mg/dL (80-115); Magnesium 1.8 mg/dL (1.6-2.6); Phosphorus 3.8 mg/dL (2.3-4.7); Potassium 3.9 mmol/L (3.5-5.1); Sodium 134 mmol/L (136-145)
[2018-06-01] MEDS: Senokot 8.6 MG TAB PO SCH (08:58)
[2018-06-01] MEDS: Heparin 5,000 UNITS/ML VIAL SC SCH ×2 (09:00→14:50)
[2018-06-01] MEDS: Ferrous Sulfate 325 MG TAB PO SCH ×2 (09:00→16:26)
[2018-06-01] MEDS: Famotidine 20 MG TAB PO SCH (09:00)
[2018-06-01] MEDS: Insulin Glargine 8 UNITS in Pre-Filled Syringe 1 EACH SC SCH (09:01)
[2018-06-01] MEDS: Polyethylene Glycol 3350 17 GM Packet PO SCH (09:01)
[2018-06-01] MEDS: Sevelamer Carbonate 800 MG TAB PO SCH ×3 (09:01→16:26)
[2018-06-01] MEDS: Nystatin 500,000 UNITS/5 ML UDCUP SSW SCH ×3 (10:03→16:26)
--- NOTE | 2018-06-01 12:53 | PRG ---
DATE OF SERVICE: 06/01/2018 SUBJECTIVE: The patient is a 72-year-old female, status post fall from standing with a left femoral neck fracture, which was repaired on May 22. This morning, the patient is sitting up in bed with at bedside. Reports she is feeling very well and has no complaints. Tolerating her diet. Denies nausea, vomiting, or diarrhea. OBJECTIVE: VITAL SIGNS: Temperature 97.5, heart rate 76, respirations 16, oxygen saturation 99% on room air, and blood pressure 119/69. GENERAL: Well-appearing elderly female, sitting up in bed with no signs of acute distress. Alert and oriented. HEENT: Left-sided facial droop with poor dentition. Creamy lesion on tongue. No right-sided facial droop or weakness. RESPIRATORY: No signs of acute distress. Equal chest rise and fall. Clear breath sounds bilaterally. HEART: Regular rate and rhythm. No murmurs, gallops, or rubs. ABDOMEN: Soft, nontender, and nondistended. EXTREMITIES: Postoperative dressing to left hip is clean, dry, and intact. Dialysis fistula in the right upper extremity. 2+ pulses in all extremities. Gross motor and sensation intact with stable left-sided weakness from previous CVA. LABORATORY FINDINGS: White count 7.9, hemoglobin 10.0, hematocrit 31.5, and platelets 234. Sodium 134, potassium 3.9, chloride 95, carbon dioxide 26, BUN 33, creatinine 4.65, glucose 202, phos 3.8, and magnesium 1.8. DIAGNOSTIC FINDINGS: There are no diagnostic findings to discuss. ASSESSMENT: 1. Status post ground level fall. 2. Left femoral neck fracture, status post open reduction and internal fixation. 3. History of end-stage renal disease, on dialysis Wednesday, , and Wednesday. 4. History of chronic anemia, hypertension, cerebrovascular accident, transient ischemic attack, diabetes, depression, congenital heart failure. 5. Oral Lili. PLAN: The patient is pending placement at SNF. She is ready to be discharged. We will to continue to provide supportive care with physical and occupational therapy. We will continue dialysis Wednesday, , and Wednesday. Dr. Washington with Nephrology is still following. We will continue to monitor her blood glucose and will increase her sliding scale. We will continue nystatin for oral Lili. The patient was seen and examined by Dr. Virgen and myself this morning during rounds. Job ID: [id number] [email or web address]
[2018-06-01 15:45] VITALS: BP 156/79; TEMP 98.2
--- NOTE | 2018-06-02 03:15 | DIS ---
DATE OF ADMISSION: 05/21/2018 DATE OF DISCHARGE: 06/01/2018 ADMISSION DIAGNOSES: 1. Mechanical fall from standing. 2. Left femoral neck fracture. 3. History of cerebrovascular accident with residual left-sided weakness, end-stage renal disease, congenital heart failure, renal cancer, diabetes, hypertension, and depression. DISCHARGE DIAGNOSES: Mechanical fall from standing, left femoral neck fracture, oral Lili, transient ischemic attack, cerebrovascular accident, end-stage renal disease, congenital heart failure, renal cancer, diabetes, hypertension, and depression. PROCEDURES: She had a left femur IM nail by Dr. Mcknight on May 22. HOSPITAL COURSE: Ms. Nicole is a 72-year-old female patient, who presented to the emergency department with a left femoral neck fracture. She was at home and tried to get up to walk for the first time independently. She had just gotten discharge from rehab about 2 weeks prior due to suffering a CVA with residual left-sided weakness. She reported getting up without her walker or assistance, feeling weak, and falling on her left side. She hit a wall on the way down and reported left hip pain at that time. In the emergency department, she was evaluated and Dr. Mcknight with Orthopedic Surgery was consulted. She went to the OR on May 22 and had a left femur IM nail. On postop day 1, the patient had increased right-sided weakness and facial droop and NIH scale of 12, and subsequently a code green was activated and the patient received CT scans and additional TIA workup, which demonstrated that she did not have a CVA at that time. Weakness and facial droop on the right side did resolve within the next 24 to 48 hours. At that time, she also had difficulty swallowing and Speech evaluated her initially recommending n.p.o. but as her neurological exam improved, eventually her diet was changed to diabetic diet with pureed. She also received dialysis under the direction of Dr. Washington, who is her regular abstract checker on Tuesdays, , and Saturdays. Throughout her hospital admission, her home medications were restarted. By the time of discharge, she was tolerating a diabetic diet, urinating occasionally, but she is a dialysis patient. She also was having regular bowel movements. Pain was well controlled. A couple days before discharge, she was noted to have oral Lili, which she received oral nystatin for. She was discharged to a [facility] facility. DISCHARGE DISPOSITION: retirement facility. DISCHARGE CONDITION: Satisfactory. PHYSICAL EXAMINATION: VITAL SIGNS: Temperature 98.2, pulse 80, respirations 16, oxygen saturation 100% on room air, and blood pressure 156/79. GENERAL: Well-appearing elderly female, sitting up in bed with no signs of acute distress. HEENT: Left-sided facial droop with poor dentition. Creamy lesion on tongue. No right-sided facial droop or weakness. RESPIRATORY: No signs of acute distress. Equal chest rise and fall. Clear breath sounds bilaterally. HEART: Regular rate and rhythm. No murmurs, gallops, or rubs. ABDOMEN: Soft, nontender, and nondistended. EXTREMITIES: Postoperative dressing to left hip is clean, dry, and intact. Dialysis fistula with right upper extremity, 2+ pulses in all extremities. Gross motor and sensation intact with stable left-sided weakness from previous CVA. DISCHARGE INSTRUCTIONS: The patient was discharged to a [facility] facility with followup in [address] Mcknight. Activity as tolerated and weightbearing as tolerated to all 4 extremities. She had a diabetic diet with a pureed consistency. She is to have physical, occupational, and speech therapy. She will receive incentive spirometer and ambulate with a walker. She is also to receive dialysis on Tuesdays, , and Saturdays. DISCHARGE MEDICATIONS: Included, 1. Levemir. 2. Aspirin. 3. Lipitor. 4. D3. 5. Nifedipine. 6. Tramadol. 7. Tylenol. 8. Mirtazapine. 9. Amlodipine. 10. Diphenhydramine. 11. Humalog. 12. Clonidine. 13. Renvela. FOLLOWUP: She is to follow up with Dr. Mcknight, Orthopedic Surgery, in 14 days for her followup appointments. This is merely a summary of the patient's hospitalization. For full details, please see her medical records in its entirety. Job ID: [id number]
--- NOTE | 2018-06-04 01:05 | EKG ---
Test Reason : Blood Pressure : / mmHG Vent. Rate : 098 BPM Atrial Rate : 098 BPM P-R Int : 166 ms QRS Dur : 134 ms QT Int : 398 ms P-R-T Axes : 023 -44 009 degrees QTc Int : 508 ms Normal sinus rhythm Left axis deviation Right bundle branch block Abnormal ECG When compared with ECG of 20-MAY-2018 23:10, (Unconfirmed) No significant change was found Confirmed by JUANIS OTTO M.D. ([id number]) on 06/04/2018 1:05:38 AM Referred By: MINA Confirmed By:JUANIS OTTO M.D.
--- NOTE | 2018-06-04 15:16 | EKG ---
Test Reason : Blood Pressure : / mmHG Vent. Rate : 087 BPM Atrial Rate : 087 BPM P-R Int : 132 ms QRS Dur : 136 ms QT Int : 406 ms P-R-T Axes : 102 -50 059 degrees QTc Int : 488 ms Normal sinus rhythm Right bundle branch block Left anterior fascicular block Bifascicular block Septal infarct , age undetermined Lateral infarct , age undetermined No STEMI Abnormal ECG Confirmed by YOVANNY ORTEGA M.D. ([id number]), videotape editor BRANDAN FERRELL ([id number]) on 06/04/2018 3:16:24 PM Referred By: Confirmed By:YOVANNY ORTEGA M.D.
== END 2018-06-01 19:35 | DRG 480 ==
LOC: ERS 22:58 → SURG A 05-21 02:17
PROVIDERS: ADMIT Surgery; ATTEND Surgery
PROC: 5A1D70Z Performance of Urinary Filtration, Intermittent, Less than 6 Hours Per Day (ICD-10-PCS; 2018-05-21)
PROC: 0QS736Z Reposition Left Upper Femur with Intramedullary Internal Fixation Device, Percutaneous Approach (ICD-10-PCS; principal; 2018-05-22)
PROC: 30233N1 Transfusion of Nonautologous Red Blood Cells into Peripheral Vein, Percutaneous Approach (ICD-10-PCS; 2018-05-26)
DX: S72.142A Displaced intertrochanteric fracture of left femur, initial encounter for closed fracture (principal); N18.6 End stage renal disease; G45.9 Transient cerebral ischemic attack, unspecified; I12.0 Hypertensive chronic kidney disease with stage 5 chronic kidney disease or end stage renal disease; I69.354 Hemiplegia and hemiparesis following cerebral infarction affecting left non-dominant side; B37.0 Candidal stomatitis; R29.712 NIHSS score 12; Z99.2 Dependence on renal dialysis; E11.22 Type 2 diabetes mellitus with diabetic chronic kidney disease; I50.89 Other heart failure; R13.10 Dysphagia, unspecified; D63.1 Anemia in chronic kidney disease; I25.10 Atherosclerotic heart disease of native coronary artery without angina pectoris; E83.42 Hypomagnesemia; E83.39 Other disorders of phosphorus metabolism; M10.9 Gout, unspecified; F32.9 Major depressive disorder, single episode, unspecified; Z85.528 Personal history of other malignant neoplasm of kidney; Z90.5 Acquired absence of kidney; Z79.82 Long term (current) use of aspirin; Z79.4 Long term (current) use of insulin; W01.0XXA Fall on same level from slipping, tripping and stumbling without subsequent striking against object, initial encounter
CPT/HCPCS: 36415; 36416; 36430; 70450; 70496; 70498; 71045; 76000; 80048; 80053; 82550; 82553; 83735; 84100; 84484; 85025; 85610; 85730; 86850; 86900; 86901; 87040; 90935; 93005; 93010; 96374; C1713; G0257; J0131; J1644; J1825; J2001; J2270; J2405; J2704; J3010; J3475; J7050; J7620; P9016; Q4081; Q9966; S0028

== ENCOUNTER 2018-06-06 13:42 | Emergency (ER) | payer MEDICARE ==
[~2018-06-06 13:42] MED LIST: ISOVUE-370 76%-LOCM 1 ML ONE
[2018-06-06 14:23] LABS: Bacteria/HPF None Seen HPF (None Seen); Bilirubin Negative (Negative); Blood, Urine Small (Negative); Clarity CLEAR (Clear); Glucose, Urine (Dipstick) 250 mg/dL (Negative); Hyaline Casts/LPF 4-6 HYALINE CAST LPF (0-3 Hyaline); Leukocyte Small (Negative); Nitrite Negative (Negative); Pathc Cast-AUWi Flag 1.01 (0-2.49); Protein, Urine (Dipstick) 300 mg/dL (Neg-Trace); RBC/HPF 0-3 HPF (0-3); Specific Gravity, Urine 1.012 (1.002-1.036); Urobilinogen 0.2 mg/dL (0.2-1.0); WBC/HPF 21-50 HPF (0-3); pH, Urine 7.5 (5.0-9.0)
[2018-06-06 14:26] LABS: #Lymphocytes 0.9 thou/uL (1.20-3.40); #Monocytes 0.3 thou/uL (0.11-0.59); #Neutrophils 6.2 thou/uL (1.40-6.50); %Basophils 0.1 % (0.0-1.0); %Eosinophils 0.3 % (0.0-10.0); %Lymphocytes 12.6 % (21.0-51.0); %Neutrophils 83.1 % (42.0-75.0); Hemoglobin 10.7 g/dL (12.0-16.0); Mean Corpuscular HGB CONC 32.2 g/dL (32.0-36.0); Mean Corpuscular Hemoglobin 29.6 pg (27.0-31.0); Mean Platelet Volume 6.8 fL (7.4-10.4); Platelet Count 210 thou/uL (130-400); RBC Distribution Width 15.8 % (11.5-14.5); Red Blood Cell (RBC) Count 3.61 mill/uL (4.20-5.40); White Blood Cell (WBC) Count 7.4 thou/uL (4.8-10.8)
[2018-06-06 14:37] LABS: Renal Epithelial 0-3 HPF (0-3); Transitional Epithelial 0-3 HPF (0-3)
[2018-06-06 15:02] LABS: ALT (SGPT) 14 U/L (8-55); AST (SGOT) 21 U/L (5-34); Albumin 3.4 g/dL (3.4-4.8); Alkaline Phosphatase 140 U/L (40-150); Anion Gap 18 mmol/L (10-20); BUN (Urea Nitrogen) 30 mg/dL (9.8-20.1); Bilirubin, Total 0.6 mg/dL (0.2-1.2); Calc. Creatinine Clearance 0 mL/min (70-130); Calcium 9.5 mg/dL (7.8-10.44); Carbon Dioxide 30 mmol/L (23-31); Chloride 92 mmol/L (98-107); Estimated GFR-MDRD 8; Globulin 4.5 g/dL (2.4-3.5); Glucose 131 mg/dL (80-115); Lipase 39 U/L (8-78); Potassium 4.1 mmol/L (3.5-5.1); Protein, Total 7.9 g/dL (6.0-8.3); Sodium 136 mmol/L (136-145)
[2018-06-06] MEDS ORDERED: cefTRIAXone\\ROCEPHIN 1 GM VIAL ONE (15:16)
--- NOTE | 2018-06-06 15:26 | CT ---
CT ABDOMEN AND PELVIS WITH IV CONTRAST: Date: 06/06/18 HISTORY: Abdominal pain for 1 week. COMPARISON: Noncontrast CT abdomen and pelvis on 05/09/15. FINDINGS: There are tiny bilateral pleural effusions and associated passive atelectasis. There is a very tiny, subcentimeter, nodular density in the inferior aspect of the right middle lobe adjacent to the hemidi aphragm. This was also seen on the prior exam and is too small to characterize. Vascular calcifications are seen in the abdominal aorta involving the iliac arteries. Postsurgical changes related to a left nephrectomy are again present. Post cholecystectomy changes ar e again present. The pancreas is atrophied with low density area in the region of the body of the pancreas, which may be related to prominence of the pancreatic duct. Prominent inflammatory changes and what appear to be pseudocyst formation were seen on the prior exam. While lesion in the body of the pancreas is a poss ibility, this is felt to be related to prominence of the common duct or possibly residual from prior pancreatic pseudocyst. A subcentimeter, difficult to characterize, hypodense lesion is seen in the right hepatic lobe. The spleen, right adrenal gland, and right kidney demonstrate a normal CT appearance. Findings sugges tive of left adrenalectomy. Urinary bladder has a normal appearance. The small bowel is normal in caliber. There is question of eccentric thickening in the region of the lower rectum. However, this may be bet ter evaluated with physical examination or colonoscopy. The uterus is not visualized, likely related to prior hysterectomy. Degenerative changes are seen in the spine. There are postsurgical changes related to internal fixation of an intertrochanteric left hip fracture . An oval-shaped area of increased density is seen in the adipose layer adjacent to the left hip, lik sebastian related to small hematoma. There is adjacent subcutaneous edema as well. Degenerative changes are seen in the spine. IMPRESSION: 1. Tiny bilateral pleural effusions with associated passive atelectasis. 2. Atrophy of the body of the pancreas with diminished area of attenuation in the region of the body of the pancreas, which may be related to sequelae of prior pancreatitis and site of prior pseudocyst formation. This could be related to dilatation of a portion of the pancreatic duct as well. 3. Suggested eccentric thickening in the rectum. Further evaluation with direct visualization is sug gested. There is mild presacral edema of uncertain etiology. 4. Hysterectomy. 5. Postsurgical changes related to cholecystectomy, left adrenalectomy, and left nephrectomy. 6. Postsurgical changes related to internal fixation of intertrochanteric left hip fracture. There i s hematoma seen in the subcutaneous adipose tissues with overlying skin clips present. POS: [facility]
== END 2018-06-06 17:35 | disposition home or self-care (01) ==
LOC: ERS 13:42
DX: N39.0 Urinary tract infection, site not specified (principal); E11.9 Type 2 diabetes mellitus without complications; E78.5 Hyperlipidemia, unspecified; I11.0 Hypertensive heart disease with heart failure; I50.9 Heart failure, unspecified; Z79.899 Other long term (current) drug therapy
CPT/HCPCS: 36415; 51701; 74177; 80053; 81003; 81015; 83690; 85025; 87086; 93005; 96365; A4353; J0696; Q9966

== ENCOUNTER 2018-06-12 14:13 | Inpatient (IN) | payer MEDICARE ==
[2018-06-12] MEDS ORDERED: Pantoprazole 40 MG VIAL ONE (15:03)
[2018-06-12 15:42] LABS: #Lymphocytes 0.9 thou/uL (1.20-3.40); #Monocytes 0.3 thou/uL (0.11-0.59); #Neutrophils 3.1 thou/uL (1.40-6.50); %Basophils 0.4 % (0.0-1.0); %Eosinophils 0.4 % (0.0-10.0); %Lymphocytes 20.7 % (21.0-51.0); %Monocytes 6.3 % (0.0-10.0); %Neutrophils 72.2 % (42.0-75.0); Hemoglobin 9.9 g/dL (12.0-16.0); Mean Corpuscular HGB CONC 32.8 g/dL (32.0-36.0); Mean Corpuscular Hemoglobin 30.7 pg (27.0-31.0); Mean Corpuscular Volume 93.6 fL (78.0-98.0); Mean Platelet Volume 7.1 fL (7.4-10.4); Platelet Count 157 thou/uL (130-400); RBC Distribution Width 16.9 % (11.5-14.5); Red Blood Cell (RBC) Count 3.21 mill/uL (4.20-5.40); White Blood Cell (WBC) Count 4.4 thou/uL (4.8-10.8)
--- NOTE | 2018-06-12 15:58 | RAD ---
CHEST ONE VIEW: HISTORY: GI bleeding. COMPARISON: 05/21/2018 FINDINGS: The cardiac silhouette is magnified by projection. The pulmonary vasculature is unremarkable. The m ediastinum is midline. No lobar consolidation or evidence of pneumothorax. Metallic clips overly th e upper abdomen. IMPRESSION: No active cardiopulmonary abnormalities demonstrated. POS: [facility]
[2018-06-12 16:02] LABS: ALT (SGPT) 7 U/L (8-55); AST (SGOT) 19 U/L (5-34); Albumin 3.1 g/dL (3.4-4.8); Alkaline Phosphatase 134 U/L (40-150); Anion Gap 18 mmol/L (10-20); BUN (Urea Nitrogen) 25 mg/dL (9.8-20.1); Bilirubin, Total 0.5 mg/dL (0.2-1.2); CK (CPK) 24 U/L (29-168); Calc. Creatinine Clearance 0 mL/min (70-130); Carbon Dioxide 28 mmol/L (23-31); Chloride 95 mmol/L (98-107); Estimated GFR-MDRD 7; Globulin 3.9 g/dL (2.4-3.5); Glucose 85 mg/dL (80-115); Lipase 29 U/L (8-78); Potassium 3.6 mmol/L (3.5-5.1); Sodium 137 mmol/L (136-145)
[2018-06-12 16:06] LABS: CKMB 1.5 ng/mL (0-6.6)
[2018-06-12 16:13] LABS: Bilirubin Negative (Negative); Blood, Urine Small (Negative); Clarity CLOUDY (Clear); Glucose, Urine (Dipstick) 100 mg/dL (Negative); Leukocyte Large (Negative); Nitrite Negative (Negative); Protein, Urine (Dipstick) 100 mg/dL (Neg-Trace); Specific Gravity, Urine 1.012 (1.002-1.036); Urobilinogen 0.2 mg/dL (0.2-1.0); pH, Urine 7.5 (5.0-9.0)
[2018-06-12 16:16] LABS: Bacteria/HPF None Seen HPF (None Seen); Hyaline Casts/LPF 7-10 HYALINE CAST LPF (0-3 Hyaline); Pathc Cast-AUWi Flag 1.88 (0-2.49); RBC/HPF 0-3 HPF (0-3); Squamous Epithelial 0-3 HPF (0-3); Yeast-AUWi Flag 8.7 (0-25.0)
[2018-06-12] MEDS ORDERED: Sodium Chloride 0.9% 100 ML ONE (16:35)
[2018-06-12] MEDS ORDERED: cefTRIAXone\\ROCEPHIN 1 GM VIAL ONE (16:35)
[2018-06-12] MEDS ORDERED: Pantoprazole 80 MG, Admixture Fee 1 EACH in Sodium Chloride 0.9% 100 ML IVP SCH (18:30)
[2018-06-12] MEDS ORDERED: Ondansetron ODT 4 MG TAB SL PRN (22:12)
[2018-06-12] MEDS ORDERED: Ondansetron PF 4 MG/2 ML Vial IVP PRN (22:12)
[2018-06-13 10:33] VITALS: BMI 26.1
[2018-06-13] MEDS ORDERED: Epoetin (ESRD) 20,000 UNITS/ML SC SCH (17:00)
--- NOTE | 2018-06-13 17:21 | CON ---
DATE OF CONSULTATION: HISTORY OF PRESENT ILLNESS: Ms. Nicole is a 72-year-old female with ESRD and admitted for GI bleed. Per history from the long term, she had a black colored stool noted in her underwear. She is now being admitted for further management. We are being consulted for maintenance hemodialysis. Of interest, this patient missed dialysis last Wednesday. I did examine the patient. I feel that there is no indication for any emergent hemodialysis. We will be scheduling her for her regular Wednesday, , and Wednesday dialysis tomorrow. REVIEW OF SYSTEMS: No chest pain. No shortness of breath. No syncopal episode. No epistaxis. Positive for melena. No nausea. No vomiting. Appetite and energy level are fair. No joint pains. No headache. No diplopia. No tremors. No productive cough. HOME MEDICATIONS: Include the following; 1. Clonidine 0.1 mg daily p.r.n. 2. Mirtazapine 30 mg once a day. 3. Amlodipine 5 mg once a day. 4. Atorvastatin 10 mg tablet at bedtime. 5. Sevelamer 800 mg three tablets t.i.d. with meals. 6. Vitamin D3 5000 international units daily. 7. Aspirin 81 mg tablet once a day. 8. Humalog sliding scale. 9. Levemir 27 units subcu at bedtime. PAST MEDICAL HISTORY: 1. End-stage renal disease, currently on maintenance hemodialysis, Wednesday, , and Wednesday. 2. History of diabetes mellitus. 3. Hypertension. 4. Status post CVA with left-sided hemiplegia. 5. Chronic anemia. 6. Gout. 7. Coronary artery disease. PAST SURGICAL HISTORY: Status post left femoral intramedullary nailing secondary to left intertrochanteric femoral fracture, status post AV fistula placement, status post cholecystectomy, status post left nephrectomy, status post appendectomy, status post cardiac cath with coronary artery stent placement, status post cuffed dialysis catheter placement, status post bilateral tubal ligations, status post colonoscopy, status post appendectomy. ALLERGIES: NAPROSYN. TRAUMA: Recently status post left intertrochanteric fracture, status post hip fracture, status post right leg fracture, status post collarbone fracture. IMMUNIZATION: Up-to-date. HOSPITALIZATIONS: Please see past medical history. SOCIAL HISTORY: The patient currently in a long term-[facility]. 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 Education, high school. No smoking. No alcohol. FAMILY HISTORY: No family history of ESRD. PHYSICAL EXAMINATION: VITAL SIGNS: Blood pressure is noted at 156/79 with a heart rate of 80, respiratory rate 16, temperature 98.2, and pulse ox 100%. GENERAL: Noted to be awake, alert, comfortable, not in overt distress. SKIN: Adequate turgor. HEENT: Slightly pale conjunctivae. Anicteric sclerae. No neck mass. No carotid bruits. No JVD. CHEST: No deformities. LUNGS: Clear breath sounds. No wheezing. No crackles. HEART: Normal sinus rhythm. No murmurs, gallops, or rubs. ABDOMEN: Globular, soft, and nontender. No masses. EXTREMITIES: No edema. No deformities. Positive for left-sided weakness. NEUROLOGICAL: Awake and oriented to 3 spheres. Moving all extremities except for decreased motor on the left side. Positive for facial asymmetry. LABORATORY DATA: Laboratories of June 12, 2018; white count 4.4, hemoglobin 9.9. Sodium 137, potassium 3.6, chloride 95, carbon dioxide 28, BUN 25, creatinine 5.92, calcium 9.0, AST 19, and ALT 7. On June 13, 2018; glucose is 120. ASSESSMENT AND PLAN: 1. GI bleed-supportive management p.r.n. blood transfusion. Awaiting GI consultation. 2. End-stage renal disease, stable. We will continue heparin free hemodialysis tomorrow. We will continue 3 times a week dialysis. Fluid removal as tolerated. 3. Anemia. Start Epogen 7500 units subcu every week and ferrous sulfate 325 mg p.o. b.i.d. Continue supportive care. Job ID: [id number]
[2018-06-13] MEDS: Ferrous Sulfate 325 MG TAB PO SCH (18:05)
[2018-06-13] MEDS ORDERED: cloNIDine 0.1 MG TAB PO PRN (19:37)
[2018-06-13] MEDS ORDERED: Bisacodyl 10 MG SUPP PR PRN (19:37)
[2018-06-13] MEDS ORDERED: Milk Of Magnesia 30 ML UDCUP PO PRN (19:39)
[2018-06-13] MEDS ORDERED: Dextrose 5% in Water 1,000 ML IV PRN (19:39)
[2018-06-13] MEDS ORDERED: Dextrose 50% Abboject 50 ML SYRINGE IVP PRN (19:39)
[2018-06-13] MEDS: Sodium Chloride 0.9% (PF) 10 ML VIAL FS PRN (20:49)
[2018-06-13] MEDS: Pantoprazole 40 MG VIAL IVP SCH (20:49)
[2018-06-13] MEDS: Atorvastatin Calcium 40 MG TAB PO SCH (20:50)
[2018-06-13] MEDS: Mirtazapine 30 MG TAB PO SCH (20:50)
[2018-06-13] MEDS: traMADol HCl 50 MG TAB PO PRN (20:50)
--- NOTE | 2018-06-13 23:09 | CON ---
DATE OF CONSULTATION: 06/13/2018 CHIEF COMPLAINT: Blood in stool. HISTORY OF PRESENT ILLNESS: Ms. Nicole is a 72-year-old woman who suffered a stroke a couple of months ago. She went to rehab and shortly after returning home, she was trying to walk and fell and suffered a femur fracture. She underwent surgery for that, again went back to the [facility]. She received significant amount of pain medication over a period of the 1st week after the fracture. She has had very little stool output since then and complained to her family yesterday feeling like that something was stuck. She has had some periumbilical abdominal aching pain over the last couple of days. Yesterday, she was noted to have some dark red blood in the diaper and was sent to the hospital for further evaluation. She has been on dialysis, but missed her dialysis this past Wednesday because she was feeling bad. PAST MEDICAL HISTORY: Recent stroke, recent femur fracture, end-stage renal disease, on hemodialysis on Wednesday, , Wednesday, diabetes mellitus, hypertension, gout, coronary artery disease. She was diagnosed with pancreatitis in 2016. The cause of this was not determined. She had pancreatitis a few months before that as well. She was noted to have a pseudocyst at that time. There is a vague questionable history of Crohn disease, but she has not been on any kind of treatment for this. She apparently had endoscopy at [facility] [place] at some point years ago. PAST SURGICAL HISTORY: Recent nail placement for femoral fracture, AV fistula placement, cholecystectomy in the remote past, nephrectomy, appendectomy, coronary stent placement, tubal ligation. FAMILY HISTORY: Negative for GI malignancy. SOCIAL HISTORY: No alcohol, tobacco, or drugs. ALLERGIES: PROPOXYPHENE, MORPHINE. CURRENT MEDICATIONS: Include; 1. Aspirin. 2. Amlodipine. 3. Atorvastatin. 4. Ceftriaxone. 5. Epoetin. 6. Ferrous sulfate. 7. Insulin. 8. Pantoprazole. 9. Mirtazapine. 10. Sevelamer. REVIEW OF SYSTEMS: Negative x10 systems reviewed except as stated in the history of present illness. PHYSICAL EXAMINATION: VITAL SIGNS: Temperature 97.8, pulse 85, blood pressure 169/83. GENERAL: She is in no acute distress. Alert and oriented x3. HEENT: Her eyes have no scleral icterus. Oropharynx is clear without lesions. No cervical or supraclavicular lymphadenopathy. LUNGS: Clear to auscultation bilaterally. HEART: Regular rate and rhythm without murmur. ABDOMEN: Soft. She has tenderness in the lower abdomen without guarding. Bowel sounds are present. EXTREMITIES: No lower extremity edema. RECTAL: Reveals large amount of impacted hard stool in the rectal vault. I disimpacted a massive amount of hard stools. Some of these were bloody streaks on the outside from the anal outlet and rectum, but the stools themselves were not bloody. LABORATORY DATA: Hemoglobin is 9.9, white blood cell count 4.4, platelets 157. Hemoglobin is ranged from 7.6 to 10.7 over the last couple of weeks. INR 1.1. Creatinine 5.9. IMPRESSION: 1. Fecal impaction. I performed disimpaction of a large amount of very hard stool at the bedside this evening. This was following pain medicine and immobility after stroke and then femur fracture. 2. Anemia. She has had chronic anemia over the last couple of months. She did have some red bleeding and that appears to be related to anal outlet bleeding and possible rectal stercoral type ulceration, but no significant bloody stools by exam today. I will check iron studies to evaluate for chronic iron deficiency. If she is iron deficient then I would recommend upper and lower endoscopy. However, she has made it clear this evening that she does not want any procedures performed. Her son thinks that she is depressed and perhaps if we can make her more comfortable by treating her constipation, she may change her mind. 3. End-stage renal disease. 4. Hematochezia. Again, this appears to be secondary to the fecal impaction. RECOMMENDATIONS: 1. Start MiraLAX 4 times daily and this can be backed off if she develops significant diarrhea. Further manual disimpaction can be performed as needed as well. 2. Follow trend of her hemoglobin. 3. Check iron studies. Job ID: [id number]
[2018-06-14] MEDS ORDERED: cloNIDine 0.1 MG TAB PO PRN (00:36)
[2018-06-14 07:41] LABS: Anion Gap 19 mmol/L (10-20); BUN (Urea Nitrogen) 34 mg/dL (9.8-20.1); Calc. Creatinine Clearance 8 mL/min (70-130); Calcium 8.5 mg/dL (7.8-10.44); Carbon Dioxide 18 mmol/L (23-31); Chloride 104 mmol/L (98-107); Estimated GFR-MDRD 5; Glucose 102 mg/dL (80-115); Iron 53 ug/dL (50-170); Iron Binding Capacity, Total 65 mcg/dL (265-497); Potassium 3.8 mmol/L (3.5-5.1); Sodium 137 mmol/L (136-145)
--- NOTE | 2018-06-14 08:04 | HP ---
CHIEF COMPLAINT: GI bleeding. HISTORY OF PRESENT ILLNESS: Ms. Nicole is a 72-year-old female with past medical history of end-stage renal disease, recent left femoral neck fracture status post ORIF, was sent to the hospital because of possible GI bleeding. The patient noted to have bright red as well as black-colored stool, also complaining of some abdominal discomfort and pain. No nausea, vomiting, or fever. The patient was evaluated in the ER, found to have a stable H and H. The patient was started on Protonix infusion, was also given a dose of Rocephin in the ER for UTI, given IV fluid bolus as well. The patient has been hemodynamically stable in the ER, hence patient was admitted for further evaluation and management. PAST MEDICAL HISTORY: 1. End-stage renal disease, on hemodialysis. 2. Insulin-dependent diabetes mellitus. 3. Hypertension. 4. Hyperlipidemia. 5. Chronic anemia. 6. History of coronary artery disease. 7. History of gastroesophageal reflux disease. 8. Recent CVA with possible small vessel stroke with left-sided weakness. PAST SURGICAL HISTORY: 1. Status post ORIF for left femoral neck fracture. 2. Status post hysterectomy. 3. Status cholecystectomy. 4. Status post appendectomy. 5. Status post left mastectomy. CURRENT MEDICATIONS: The patient is on: 1. Remeron 30 mg at bedtime. 2. Amlodipine 2.5 mg daily. 3. Lipitor 10 mg daily. 4. Vitamin D3 5000 units daily. 5. Aspirin 81 mg daily. 6. Levemir insulin 27 units daily. 7. Dulcolax p.r.n. 8. Tylenol p.r.n. 9. Tramadol 50 b.i.d. p.r.n. 10. Renvela 2400 mg t.i.d. ALLERGIES: DARVOCET AND MORPHINE. FAMILY HISTORY: Nothing contributory. SOCIAL HISTORY: The [facility] is [facility] a [facility] of [facility]. No history of smoking. No history of alcohol use. REVIEW OF SYSTEMS: CARDIOVASCULAR: No chest pain or shortness of breath. RESPIRATORY: No fever or cough. GASTROINTESTINAL: Has GI bleeding, bright red as well as black colored stools. Review of systems unremarkable except for the rectal bleeding. PHYSICAL EXAMINATION: GENERAL: The patient is alert, awake, and oriented x3. VITAL SIGNS: Temperature 98, pulse 100, respirations 20, and blood pressure 140/80. HEENT: Head is normocephalic and atraumatic. Pupils are equal and reactive. Nasopharynx is pale and dry. Hard and soft palate. No lesions. SKIN: Turgor decreased. NECK: Supple. No JVD. LUNGS: Bilateral air entry. No rales, no rhonchi. HEART: S1, S2. Regular. ABDOMEN: Soft. No tenderness. Normal bowel sounds. RECTAL: No symptoms. CENTRAL NERVOUS SYSTEM: No focal deficit. LABORATORY DATA: CBC shows WBC 4.4, hemoglobin 9.9, hematocrit 30, platelets 147. Metabolic panel; sodium 137, potassium 3.6, chloride 95, CO2 of 28, creatinine 5.9, glucose 85. Urinalysis reveals leukocyte esterase large, wbc greater than 50, bacteria none. Chest x-ray, negative. ASSESSMENT: 1. Acute gastrointestinal bleeding. 2. Anemia secondary to #1. 3. Urinary tract infection, possible. 4. Hypertension. 5. Diabetes mellitus. 6. End-stage renal disease. 7. Status post ORIF for left femoral neck fracture. 8. History of cerebrovascular accident with left-sided weakness. PLAN: 1. Vital signs q.4 hours. 2. Activities as tolerated. 3. Allergies, Darvocet and morphine. 4. Hep-Lock with Protonix 40 IVP. 5. IV piggyback q.12 hours. 6. Continue [facility] medications. 7. Diet, renal and ADA. 8. GI consult. Job ID: [id number]
[2018-06-14] MEDS: Pantoprazole 40 MG VIAL IVP SCH ×2 (08:14→20:29)
[2018-06-14] MEDS: Sevelamer Carbonate 800 MG TAB PO SCH ×3 (08:15→17:34)
[2018-06-14] MEDS: Amlodipine 5 MG TAB PO SCH (08:17)
[2018-06-14] MEDS: Ferrous Sulfate 325 MG TAB PO SCH ×2 (08:17→17:34)
[2018-06-14] MEDS: Aspirin 81 mg Enteric Coated Tablet PO SCH (08:17)
[2018-06-14] MEDS: cefTRIAXone\\ROCEPHIN 1 GM in Sodium Chloride 0.9% 100 ML IVPB SCH (08:19)
[2018-06-14] MEDS: Polyethylene Glycol 3350 17 GM Packet PO SCH ×4 (08:22→20:29)
--- NOTE | 2018-06-14 09:50 | PRG ---
DATE OF SERVICE: 06/14/2018 SUBJECTIVE: Ms. Nicole is a 72-year-old white female, and being followed by [facility] for her maintenance hemodialysis. She was admitted due to a GI bleed. Anesthesiologist/Physician has evaluated the patient. The plan is simply to observe her. They will try to trend her hemoglobin the next several days. Our plan is to continue current dialysis Wednesday, , and Wednesday. No other complaints today. No chest pain or shortness of breath. OBJECTIVE: VITAL SIGNS: Blood pressure 105/62, heart rate 66, respiratory rate 20, temperature 97.7, and pulse ox 97%. GENERAL: Noted to be awake, supine, comfortable, not in distress. SKIN: Adequate turgor. HEENT: Pinkish conjunctivae. Anicteric sclerae. No neck mass. No carotid bruits. No JVD. CHEST: No deformities. LUNGS: Clear breath sounds. HEART: Normal sinus rhythm. No murmurs, gallops, or rubs. ABDOMEN: Globular, soft, nontender. No masses. EXTREMITIES: No edema. Left-sided weakness. NEUROLOGICAL: Positive for facial asymmetry, but moving most extremities except for decreased motor on the left side. MEDICATIONS: Medications of MayJune 14, 2018, were reviewed. LABORATORY DATA: Laboratories of June 12, 2018, hemoglobin 9.9. On June 14, 2018, sodium 137, potassium 3.8, chloride 104, carbon dioxide 18, BUN 34, creatinine 7.46, calcium 8.5. Iron 53, TIBC 65, ferritin 798. ASSESSMENT AND PLAN: 1. Anemia. Continuing weekly Epogen. P.r.n. blood transfusion. 2. Gastrointestinal bleed. Gastroenterology following. Recheck CBC in a.m. 3. End-stage renal disease. We will continue current hemodialysis regimen of Wednesday, , and Wednesday. Due to a gastrointestinal bleed, we will use no heparin with dialysis. Overall, agree with current management. Job ID: [id number]
[2018-06-14] MEDS: traMADol HCl 50 MG TAB PO PRN (11:03)
[2018-06-14 12:02] LABS: #Lymphocytes 1.1 thou/uL (1.20-3.40); #Monocytes 0.3 thou/uL (0.11-0.59); #Neutrophils 1.5 thou/uL (1.40-6.50); %Basophils 0.8 % (0.0-1.0); %Eosinophils 1.3 % (0.0-10.0); %Monocytes 9.7 % (0.0-10.0); %Neutrophils 51.2 % (42.0-75.0); Hemoglobin 8.4 g/dL (12.0-16.0); Hypochromia SLIGHT = 6-15 cells (100X) (0-5/hpf); MDiff Complete? YES; Mean Corpuscular HGB CONC 31.4 g/dL (32.0-36.0); Mean Corpuscular Hemoglobin 29.9 pg (27.0-31.0); Mean Corpuscular Volume 95.2 fL (78.0-98.0); Mean Platelet Volume 7.1 fL (7.4-10.4); Platelet Count 109 thou/uL (130-400); Platelet Morphology Comment Appears Decreased; Polychromasia SLIGHT = 2-3 cells (100X) (0-2/hpf); RBC Distribution Width 16.8 % (11.5-14.5); Red Blood Cell (RBC) Count 2.82 mill/uL (4.20-5.40); White Blood Cell (WBC) Count 2.9 thou/uL (4.8-10.8)
[2018-06-14] MEDS: HumaLOG 300 UNITS/3 ML VIAL SC PRN (12:10)
[2018-06-14] MEDS: Atorvastatin Calcium 40 MG TAB PO SCH (20:29)
[2018-06-14] MEDS: busPIRone HCl 10 MG TAB PO SCH (20:29)
[2018-06-14] MEDS: Mirtazapine 30 MG TAB PO SCH (20:29)
--- NOTE | 2018-06-14 22:32 | PRG ---
DATE OF SERVICE: 06/14/2018 SUBJECTIVE: Ms. Nicole has had lower abdominal pain today. She has been taking the MiraLAX today. Nursing reports that she had 2 small just streaks or smears on her diaper, but no significant actual stool output. OBJECTIVE: VITAL SIGNS: Temperature 98.4, pulse 71, blood pressure 128/64. GENERAL: She is in no acute distress. She is awake and alert. LUNGS: Clear to auscultation bilaterally. HEART: Regular rate and rhythm without murmur. ABDOMEN: Soft. Mild tenderness in lower abdomen without guarding. Bowel sounds are present. EXTREMITIES: No lower extremity edema. IMPRESSION: 1. Fecal impaction. I disimpacted a large amount of hard stool from the rectum last night. Tonight again, I removed another large amount of hard stool digitally from the rectum. The stool itself is nonbloody; however, there is some anal outlet bleeding, likely secondary to mechanical trauma from the severe impaction. 2. Hematochezia secondary to fecal impaction. 3. Pancytopenia. Her ferritin is close to 800 with an iron of 53 and a TIBC of 65. Anemia is likely secondary to chronic kidney disease and possibly chronic inflammation. There is no evidence of significant overt GI bleeding other than from the fecal impaction at this point. RECOMMENDATIONS: 1. Continue scheduled MiraLAX 4 times daily. When she starts developing stools are too loose, we consider backing off the dose. 2. Recheck rectal exam tomorrow to see if she continues with the impaction. I removed everything within reach of my finger. We will have to be careful that if she is having a runny stool output that she is not just having overflow diarrhea around impacted stool. I do think we need to verify that the impaction is cleared prior to discharge. 3. The patient reports she does not wish to have any endoscopy performed. After we clear the fecal impaction and improve the constipation, if she chooses to change her mind and wants to follow through with endoscopy, then this could be performed. Job ID: [id number]
[2018-06-15] MEDS: traMADol HCl 50 MG TAB PO PRN ×3 (00:18→23:01)
[2018-06-15] MEDS: diphenhydrAMINE 25 MG CAP PO PRN ×2 (00:18→05:56)
[2018-06-15 06:00] LABS: #Lymphocytes 1.1 thou/uL (1.20-3.40); #Monocytes 0.3 thou/uL (0.11-0.59); #Neutrophils 1.5 thou/uL (1.40-6.50); %Basophils 1.6 % (0.0-1.0); %Eosinophils 0.8 % (0.0-10.0); %Monocytes 10.6 % (0.0-10.0); %Neutrophils 50.1 % (42.0-75.0); Mean Corpuscular HGB CONC 32.7 g/dL (32.0-36.0); Mean Corpuscular Hemoglobin 30.6 pg (27.0-31.0); Mean Corpuscular Volume 93.6 fL (78.0-98.0); Mean Platelet Volume 6.7 fL (7.4-10.4); Platelet Count 118 thou/uL (130-400); RBC Distribution Width 16.5 % (11.5-14.5); Red Blood Cell (RBC) Count 2.92 mill/uL (4.20-5.40)
[2018-06-15 06:16] LABS: Anion Gap 12 mmol/L (10-20); BUN (Urea Nitrogen) 13 mg/dL (9.8-20.1); Calc. Creatinine Clearance 15 mL/min (70-130); Calcium 8.5 mg/dL (7.8-10.44); Carbon Dioxide 30 mmol/L (23-31); Chloride 99 mmol/L (98-107); Estimated GFR-MDRD 11; Glucose 117 mg/dL (80-115); Potassium 3.5 mmol/L (3.5-5.1); Sodium 137 mmol/L (136-145)
[2018-06-15] MEDS: cefTRIAXone\\ROCEPHIN 1 GM in Sodium Chloride 0.9% 100 ML IVPB SCH (08:11)
[2018-06-15] MEDS: Ferrous Sulfate 325 MG TAB PO SCH ×2 (08:11→16:55)
[2018-06-15] MEDS: busPIRone HCl 10 MG TAB PO SCH ×2 (08:11→20:17)
[2018-06-15] MEDS: Aspirin 81 mg Enteric Coated Tablet PO SCH (08:12)
[2018-06-15] MEDS: Sevelamer Carbonate 800 MG TAB PO SCH ×3 (08:12→16:55)
[2018-06-15] MEDS: Amlodipine 5 MG TAB PO SCH (08:13)
[2018-06-15] MEDS: Pantoprazole 40 MG VIAL IVP SCH ×2 (08:16→20:18)
[2018-06-15] MEDS: Polyethylene Glycol 3350 17 GM Packet PO SCH ×4 (08:17→20:16)
--- NOTE | 2018-06-15 10:12 | PRG ---
DATE OF SERVICE: 06/15/2018 SUBJECTIVE: Ms. Nicole is a 72-year-old female with ESRD and admitted for GI bleed. She has been evaluated by GI and the recommendation is simple observation. Her H and H have remained stable. She underwent heparin free dialysis yesterday without any difficulty. No new complaints today. OBJECTIVE: VITAL SIGNS: Blood pressure is noted at 147/72, heart rate 74, respiratory rate 14, temperature 98, and pulse ox 96%. GENERAL: Awake, supine, comfortable, not in distress. SKIN: Adequate turgor. HEENT: She has slightly pale conjunctivae. Anicteric sclerae. No neck mass. No carotid bruits. No JVD. CHEST: No deformities. LUNGS: Clear breath sounds. HEART: Normal sinus rhythm. No murmurs, gallops, or rubs. ABDOMEN: Globular, soft, nontender. No masses. EXTREMITIES: No edema. No deformities. MEDICATIONS: Medications of June 15, 2018 reviewed. LABORATORY DATA: Laboratories of June 15, 2018; white count 3, hemoglobin 9. Sodium 137, potassium 3.5, chloride 99, carbon dioxide 30, BUN 13, creatinine 4.06, glucose 117, calcium 8.5. ASSESSMENT AND PLAN: 1. Anemia/gastrointestinal bleed, stable. GI following. No indication for any invasive procedure. Continue weekly Epogen. 2. End-stage renal disease, stable. Continue current heparin free hemodialysis due to recent gastrointestinal bleed. 3. Fecal impaction-GI is following. They did manual extraction of the retained stools. 4. Status post CVA, supportive care. The patient continues to have left-sided weakness. We will continue current hemodialysis regimen. The patient is scheduled for dialysis tomorrow. Job ID: [id number]
[2018-06-15] MEDS: Acetaminophen 500 MG TAB PO PRN (11:52)
[2018-06-15] MEDS: HumaLOG 300 UNITS/3 ML VIAL SC PRN (11:54)
[2018-06-15] MEDS ORDERED: Magnesium Citrate 300 ML BOT PO SCH (17:15)
--- NOTE | 2018-06-15 19:11 | PRG ---
DATE OF SERVICE: 06/15/2018 SUBJECTIVE: She continues to have some lower abdominal discomfort. She has had no bowel movement today. She has been taking about half the MiraLAX. OBJECTIVE: VITAL SIGNS: Temperature 98.0, pulse 74, blood pressure 147/72. GENERAL: She is in no acute distress. Awake and alert. LUNGS: Clear to auscultation bilaterally. HEART: Regular rate and rhythm without murmur. ABDOMEN: Soft, nontender, nondistended. Bowel sounds are present. EXTREMITIES: No lower extremity edema. RECTAL: Reveals only one firm stool in the rectal vault. IMPRESSION: Fecal impaction, now disimpacted manually over the last 2 nights, and only one small hard stool remaining in the rectum tonight. She has had no bowel movements with the MiraLAX, and we will give her a dose of magnesium citrate this evening to try to clear any more proximal stool retention. Then recheck an x-ray in the morning. After that, she will just need to maintain scheduled MiraLAX daily to prevent future impaction. Job ID: [id number] [facility]
[2018-06-15] MEDS: Atorvastatin Calcium 40 MG TAB PO SCH (20:17)
[2018-06-15] MEDS: Mirtazapine 30 MG TAB PO SCH (20:17)
[2018-06-16] MEDS: Sevelamer Carbonate 800 MG TAB PO SCH ×3 (08:00→17:17)
--- NOTE | 2018-06-16 08:09 | RAD ---
ABDOMEN 1 VIEW: HISTORY: Constipation. FINDINGS: Extensive postoperative changes in the abdomen, particularly in the left paramidline region. There i s some gas and some fluid in the colon. No evidence for significant large or small bowel obstruction . No overt calculus. No evidence for abnormally dilated fecal-filled rectum. IMPRESSION: Postoperative changes. Some air and probable fluid within the colon, particularly the right transver se colon, without evidence for bowel obstruction. POS: TPC
--- NOTE | 2018-06-16 08:53 | PRG ---
DATE OF SERVICE: 06/16/2018 SERVICE: Renal Medicine. SUBJECTIVE: Ms. Nicole is a 72-year-old female with ESRD and followed up by the [facility]al Service for maintenance hemodialysis. She is currently undergoing hemodialysis. We were using no heparin due to the recent GI bleed. The patient also had fecal impaction and this was manually disimpacted. KUB shows no overt obstruction. I am at the bedside supervising her dialysis. OBJECTIVE: VITAL SIGNS: Blood pressure 150/67, heart rate 75, respiratory rate 18, temperature 98.5, and pulse ox 95%. GENERAL: The patient is awake, alert, comfortable. SKIN: Adequate turgor. HEENT: Slightly pale conjunctivae. Anicteric sclerae. NECK: No neck mass. No carotid bruits. No JVD. CHEST: No deformities. LUNGS: Clear breath sounds. HEART: Normal sinus rhythm. No murmurs. No gallops. No rubs. ABDOMEN: Globular, soft, and nontender. No masses. EXTREMITIES: No edema. She has a left-sided weakness. MEDICATIONS: Medications of June 16, 2018, was reviewed. LABORATORY DATA: Laboratories of June 15, 2018; white count is 3, hemoglobin 9.0. Sodium 137, potassium 3.5, chloride 99, carbon dioxide 30, BUN 13, creatinine 4.06, glucose 117, and calcium 8.5. On June 16, 2018, labs pending. ASSESSMENT AND PLAN: 1. Status post gastrointestinal bleed - stabilizing H and H. No indication for any blood transfusion. GI following. 2. End-stage renal disease, continuing heparin-free hemodialysis. Fluid removal as tolerated by the patient. No changes will be made with the current dialysis regimen. Recheck basic metabolic and CBC in a.m. Job ID: [id number]
[2018-06-16] MEDS: Polyethylene Glycol 3350 17 GM Packet PO SCH ×4 (09:00→19:27)
[2018-06-16 09:15] LABS: #Monocytes 0.2 thou/uL (0.11-0.59); #Neutrophils 1.3 thou/uL (1.40-6.50); %Basophils 0.6 % (0.0-1.0); %Eosinophils 1.3 % (0.0-10.0); %Lymphocytes 38.2 % (21.0-51.0); %Monocytes 8.2 % (0.0-10.0); %Neutrophils 51.6 % (42.0-75.0); Hemoglobin 8.4 g/dL (12.0-16.0); Mean Corpuscular HGB CONC 32.4 g/dL (32.0-36.0); Mean Corpuscular Hemoglobin 30.1 pg (27.0-31.0); Mean Corpuscular Volume 92.9 fL (78.0-98.0); Mean Platelet Volume 6.8 fL (7.4-10.4); Platelet Count 114 thou/uL (130-400); RBC Distribution Width 16.2 % (11.5-14.5); Red Blood Cell (RBC) Count 2.79 mill/uL (4.20-5.40); White Blood Cell (WBC) Count 2.6 thou/uL (4.8-10.8)
[2018-06-16 09:21] LABS: Anion Gap 13 mmol/L (10-20); BUN (Urea Nitrogen) 18 mg/dL (9.8-20.1); Calc. Creatinine Clearance 11 mL/min (70-130); Calcium 8.6 mg/dL (7.8-10.44); Carbon Dioxide 30 mmol/L (23-31); Chloride 100 mmol/L (98-107); Estimated GFR-MDRD 8; Glucose 98 mg/dL (80-115); Potassium 3.7 mmol/L (3.5-5.1); Sodium 139 mmol/L (136-145)
[2018-06-16] MEDS: Pantoprazole 40 MG VIAL IVP SCH ×2 (12:18→19:24)
[2018-06-16] MEDS: cefTRIAXone\\ROCEPHIN 1 GM in Sodium Chloride 0.9% 100 ML IVPB SCH (12:19)
[2018-06-16] MEDS: Amlodipine 5 MG TAB PO SCH (12:20)
[2018-06-16] MEDS: busPIRone HCl 10 MG TAB PO SCH ×2 (12:20→19:25)
[2018-06-16] MEDS: Aspirin 81 mg Enteric Coated Tablet PO SCH (12:20)
[2018-06-16] MEDS: Ferrous Sulfate 325 MG TAB PO SCH ×2 (12:27→17:17)
--- NOTE | 2018-06-16 14:00 | PQF ---
CLINICAL DOCUMENTATION IMPROVEMENT CLARIFICATION FORM: ICD-10 Updated PLEASE DO AN ADDENDUM TO THE PROGRESS NOTE WITH ANY DOCUMENTATION UPDATES OR ADDITIONS AND CARRY THROUGH TO DC SUMMARY. THANK YOU. DATE: 06/16/2018; 06/17/2018 ATTN: Dr. Love Please exercise your independent, professional judgment in responding to the clarification form. Clinical indicators are provided on the bottom of this form for your review Please check appropriate box(s) to clarify if the following diagnosis has been ruled in or ruled out: UTI [ y] Ruled in diagnosis [ y ] Continue to treat [ ] Resolved [ ] Ruled out diagnosis [ ] Cannot rule out diagnosis [ ] Other diagnosis [ ] Unable to determine In addition, please specify: Present on Admission (POA): [ y ] Yes [ ] No [ ] Unable to determine For continuity of documentation, please document condition throughout progress notes and discharge summary. Thank You. CLINICAL INDICATORS - SIGNS / SYMPTOMS / LABS H&P 3/4: given a dose of Rocephin in the ER for UTI, given IV fluid bolus as well. Urinalysis reveals leukocyte esterase large, wbc greater than 50, bacteria none Urinary tract infection, possible RISKS: H&P: Recent left femoral neck fx s/p ORIF. Hx: ESRD on Hemodialysis. Ins. dependent diabetes mellitus. HTN. Chronic anemia. Hx of CAD. Recent CVA. TREATMENT: Order 3/4: Rocephin 1gm IV q am Thank you, Caro (This form is maintained as a part of the permanent medical record) 2014 [employer]. All Rights Reserved Caro Nicholson RN, BSN [email or web address] Office: [phone] [facility] HOSPITALZhao
[2018-06-16] MEDS: diphenhydrAMINE 25 MG CAP PO PRN ×2 (14:03→19:32)
--- NOTE | 2018-06-16 15:07 | PRG ---
DATE OF SERVICE: 06/16/2018 SUBJECTIVE: Ms. Nicole had multiple stools after the magnesium citrate last night. Her abdominal pain is better today. OBJECTIVE: VITAL SIGNS: Temperature 97.4, pulse 81, blood pressure 124/66. GENERAL: She is in no acute distress. Awake and alert. LUNGS: Clear to auscultation bilaterally. HEART: Regular rate and rhythm without murmur. ABDOMEN: Soft, nontender, nondistended. Bowel sounds are present. EXTREMITIES: No lower extremity edema. IMPRESSION: 1. Fecal impaction, resolved. X-ray is clear today of significant retention of stool. Manual disimpaction was performed last 3 days in a row prior to today. She will now need to continue schedule daily osmotic laxative. 2. Anemia of chronic disease and chronic renal disease. She did have some red blood anal outlet type bleeding secondary to the impaction. She is declining further endoscopy for now. RECOMMENDATIONS: 1. Schedule MiraLAX twice daily. If her stools become too loose with that, then she can back off to once daily or if this is inadequate, she can increase to 3 times daily. 2. She should be ready to discharge home soon from a GI perspective. I will sign off. Please call if GI can be of assistance. Job ID: [id number]
[2018-06-16] MEDS: HumaLOG 300 UNITS/3 ML VIAL SC PRN (17:17)
[2018-06-16] MEDS: traMADol HCl 50 MG TAB PO PRN (19:24)
[2018-06-16] MEDS: Mirtazapine 30 MG TAB PO SCH (19:25)
[2018-06-16] MEDS: Atorvastatin Calcium 40 MG TAB PO SCH (19:25)
[2018-06-17] MEDS: HumaLOG 300 UNITS/3 ML VIAL SC PRN (06:03)
[2018-06-17] MEDS: cefTRIAXone\\ROCEPHIN 1 GM in Sodium Chloride 0.9% 100 ML IVPB SCH (08:37)
[2018-06-17] MEDS: Sevelamer Carbonate 800 MG TAB PO SCH ×3 (08:38→17:33)
[2018-06-17] MEDS: Amlodipine 5 MG TAB PO SCH (08:39)
[2018-06-17] MEDS: busPIRone HCl 10 MG TAB PO SCH ×2 (08:41→21:12)
[2018-06-17] MEDS: Ferrous Sulfate 325 MG TAB PO SCH ×2 (08:41→17:33)
[2018-06-17] MEDS: Aspirin 81 mg Enteric Coated Tablet PO SCH (08:41)
[2018-06-17] MEDS: Polyethylene Glycol 3350 17 GM Packet PO SCH ×2 (08:42→14:48)
[2018-06-17] MEDS: Pantoprazole 40 MG VIAL IVP SCH ×2 (08:42→21:13)
[2018-06-17] MEDS: traMADol HCl 50 MG TAB PO PRN ×2 (10:22→21:12)
[2018-06-17] MEDS: Atorvastatin Calcium 40 MG TAB PO SCH (21:12)
[2018-06-17] MEDS: Docusate 100 MG CAP PO SCH (21:13)
[2018-06-17] MEDS: Mirtazapine 30 MG TAB PO SCH (21:13)
[2018-06-18] MEDS: diphenhydrAMINE 25 MG CAP PO PRN ×2 (01:36→17:51)
[2018-06-18] MEDS: Sevelamer Carbonate 800 MG TAB PO SCH ×3 (08:01→17:25)
--- NOTE | 2018-06-18 11:27 | PRG ---
DATE OF SERVICE: 06/18/2018 SERVICE: Renal Medicine. SUBJECTIVE: Ms. Nicole is a 72-year-old female with ESRD, being followed up by the Renal Service for maintenance hemodialysis. We have scheduled her for her dialysis today. We will continue heparin free dialysis due to the recent GI bleed. Her GI bleed of note has stabilized. No other complaints. No chest pain or shortness of breath. OBJECTIVE: VITAL SIGNS: Blood pressure 137/73, heart rate 82, respiratory rate 18, temperature 98.7, pulse ox 93%. GENERAL: Awake, alert, comfortable, not in overt distress. SKIN: Adequate turgor. HEENT: She has a slightly pale conjunctivae. Anicteric sclerae. NECK: No neck mass. No carotid bruits. No JVD. CHEST: No deformities. LUNGS: Clear breath sounds. HEART: Normal sinus rhythm. No murmurs, no gallops, no rubs. ABDOMEN: Globular, soft, nontender. No masses. EXTREMITIES: No edema. No deformities. NEUROLOGICAL: Positive for left-sided weakness. MEDICATIONS: Medications of June 18, 2018, was reviewed. LABORATORY DATA: On June 16, 2018; hemoglobin 8.4. On June 18, 2018; sodium 140. On june 16, 2018; potassium 3.7, BUN 18, creatinine 5.24. ASSESSMENT AND PLAN: 1. End-stage renal disease, stable. We will continue current heparin free hemodialysis. Fluid removal only as tolerated. We are not using heparin due to recent gastrointestinal bleed. 2. Gastrointestinal bleed/chronic anemia, stable. The patient is receiving weekly Epogen, p.r.n. blood transfusion. Recheck basic metabolic and CBC in a.m. Job ID: [id number]
[2018-06-18] MEDS: Pantoprazole 40 MG VIAL IVP SCH ×2 (14:17→20:51)
[2018-06-18] MEDS: cefTRIAXone\\ROCEPHIN 1 GM in Sodium Chloride 0.9% 100 ML IVPB SCH (14:18)
[2018-06-18] MEDS: Amlodipine 5 MG TAB PO SCH (14:19)
[2018-06-18] MEDS: Docusate 100 MG CAP PO SCH ×2 (14:19→20:51)
[2018-06-18] MEDS: Ferrous Sulfate 325 MG TAB PO SCH ×2 (14:19→17:25)
[2018-06-18] MEDS: busPIRone HCl 10 MG TAB PO SCH ×2 (14:20→20:50)
[2018-06-18] MEDS: Aspirin 81 mg Enteric Coated Tablet PO SCH (14:21)
[2018-06-18] MEDS: Atorvastatin Calcium 40 MG TAB PO SCH (20:51)
[2018-06-18] MEDS: Sodium Chloride 0.9% (PF) 10 ML VIAL FS PRN (20:51)
[2018-06-18] MEDS: Mirtazapine 30 MG TAB PO SCH (20:51)
[2018-06-19 06:58] LABS: #Lymphocytes 1.2 thou/uL (1.20-3.40); #Monocytes 0.3 thou/uL (0.11-0.59); #Neutrophils 1.3 thou/uL (1.40-6.50); %Basophils 1.1 % (0.0-1.0); %Eosinophils 1.3 % (0.0-10.0); %Lymphocytes 42.3 % (21.0-51.0); %Monocytes 9.9 % (0.0-10.0); %Neutrophils 45.4 % (42.0-75.0); Hemoglobin 9.6 g/dL (12.0-16.0); Mean Corpuscular Volume 93.5 fL (78.0-98.0); Mean Platelet Volume 7.3 fL (7.4-10.4); Platelet Count 135 thou/uL (130-400); RBC Distribution Width 16.1 % (11.5-14.5); Red Blood Cell (RBC) Count 3.32 mill/uL (4.20-5.40); White Blood Cell (WBC) Count 2.8 thou/uL (4.8-10.8)
[2018-06-19 07:15] LABS: Anion Gap 11 mmol/L (10-20); BUN (Urea Nitrogen) 13 mg/dL (9.8-20.1); Calc. Creatinine Clearance 14 mL/min (70-130); Calcium 8.7 mg/dL (7.8-10.44); Carbon Dioxide 31 mmol/L (23-31); Chloride 98 mmol/L (98-107); Estimated GFR-MDRD 11; Glucose 120 mg/dL (80-115); Potassium 4.1 mmol/L (3.5-5.1); Sodium 136 mmol/L (136-145)
[2018-06-19] MEDS: busPIRone HCl 10 MG TAB PO SCH ×2 (08:02→19:34)
[2018-06-19] MEDS: Aspirin 81 mg Enteric Coated Tablet PO SCH (08:02)
[2018-06-19] MEDS: Amlodipine 5 MG TAB PO SCH (08:02)
[2018-06-19] MEDS: Docusate 100 MG CAP PO SCH ×2 (08:02→19:34)
[2018-06-19] MEDS: Ferrous Sulfate 325 MG TAB PO SCH ×2 (08:02→16:51)
[2018-06-19] MEDS: Sevelamer Carbonate 800 MG TAB PO SCH ×3 (08:02→16:51)
[2018-06-19] MEDS: Pantoprazole 40 MG VIAL IVP SCH ×2 (08:03→19:37)
[2018-06-19] MEDS: cefTRIAXone\\ROCEPHIN 1 GM in Sodium Chloride 0.9% 100 ML IVPB SCH (08:03)
[2018-06-19] MEDS: traMADol HCl 50 MG TAB PO PRN ×2 (08:12→19:34)
[2018-06-19] MEDS: HumaLOG 300 UNITS/3 ML VIAL SC PRN (12:26)
[2018-06-19] MEDS: diphenhydrAMINE 25 MG CAP PO PRN (16:54)
[2018-06-19] MEDS: Atorvastatin Calcium 40 MG TAB PO SCH (19:33)
[2018-06-19] MEDS: Mirtazapine 30 MG TAB PO SCH (19:34)
[2018-06-19] MEDS: Acetaminophen 500 MG TAB PO PRN (19:34)
[2018-06-19] MEDS: Sodium Chloride 0.9% (PF) 10 ML VIAL FS PRN (19:41)
[2018-06-20 07:48] VITALS: BP 148/72; TEMP 98.1
[2018-06-20] MEDS: Ferrous Sulfate 325 MG TAB PO SCH (09:03)
[2018-06-20] MEDS: Docusate 100 MG CAP PO SCH (09:03)
[2018-06-20] MEDS: busPIRone HCl 10 MG TAB PO SCH (09:03)
[2018-06-20] MEDS: Sevelamer Carbonate 800 MG TAB PO SCH ×2 (09:03→12:31)
[2018-06-20] MEDS: cefTRIAXone\\ROCEPHIN 1 GM in Sodium Chloride 0.9% 100 ML IVPB SCH (09:04)
[2018-06-20] MEDS: Amlodipine 5 MG TAB PO SCH (09:04)
[2018-06-20] MEDS: Aspirin 81 mg Enteric Coated Tablet PO SCH (09:04)
[2018-06-20] MEDS: Sodium Chloride 0.9% (PF) 10 ML VIAL FS PRN (09:05)
[2018-06-20] MEDS: Pantoprazole 40 MG VIAL IVP SCH (09:05)
[2018-06-20] MEDS: traMADol HCl 50 MG TAB PO PRN (09:28)
--- NOTE | 2018-06-21 10:51 | DIS ---
DATE OF ADMISSION: 06/13/2018 DATE OF DISCHARGE: 06/20/2018 ADMITTING DIAGNOSES: 1. Acute gastrointestinal bleeding. 2. Anemia secondary to #1. 3. Urinary tract infection. 4. Hypertension. 5. Diabetes mellitus. 6. End-stage renal disease. 7. Status post open reduction and internal fixation of left humeral neck fracture. 8. History of cerebrovascular accident with left-sided weakness. FINAL DIAGNOSES: 1. Gastrointestinal bleeding, resolved. 2. Anemia of chronic disease, status post transfusion. 3. Fecal impaction, improved. 4. Urinary tract infection. 5. Hypertension. 6. Diabetes mellitus. 7. End-stage renal disease. 8. Status post cerebrovascular accident. 9. Status post open reduction and internal fixation. BRIEF SUMMARY OF HOSPITAL COURSE: Ms. Nicole is a 72-year-old female admitted because of evidence of GI bleeding. The patient was monitored, her hemoglobin and hematocrit remained stable. GI consult done. The patient was seen by Dr. Pratt and he felt the patient to have fecal impaction and which was treated, started on MiraLax four times a day, problem resolved. Her hemoglobin and hematocrit were monitored, stayed around 9 g, so no GI workup is done. There is no obvious GI bleeding in the hospital. The patient was found to have urinary tract infection , and was started on antibiotics and improved. The patient has been improving. She is eating better. She was started on physical therapy. She is still not ambulating. She came from long-term, but she wanted to go home rather than long-term. She wanted home health and she will go with her family members who will take care of her. In view of that, the patient is being discharged home. PHYSICAL EXAMINATION: GENERAL: At the time of discharge, she was stable. VITAL SIGNS: Stable. LUNGS: Clear. HEART: Heart sounds regular. ABDOMEN: Soft, nontender. Bowel sounds present. DISCHARGE MEDICATIONS: 1. Vitamin D 5000 units daily. 2. Humalog insulin sliding scale. 3. Atorvastatin 40 mg daily. 4. Renvela 800 mg tablets 2400 mg t.i.d. 5. Aspirin 81 mg daily. 6. Amlodipine 2.5 mg daily. 7. Remeron 30 mg at bedtime. 8. Clonidine 0.1 q.6 hours p.r.n. 9. Milk of magnesia 30 mL b.i.d. p.r.n. 10. Dulcolax p.r.n. 10 mg. 11. Tramadol 50 b.i.d. 12. Benadryl p.r.n. 13. BuSpar 10 mg b.i.d. 14. Ferrous sulfate 325 b.i.d. 15. Colace 100 mg b.i.d. The patient will come for followup in 2 weeks and continue hemodialysis. Job ID: [id number] [facility]
--- NOTE | 2018-06-25 13:36 | EKG ---
Test Reason : Blood Pressure : / mmHG Vent. Rate : 074 BPM Atrial Rate : 074 BPM P-R Int : 152 ms QRS Dur : 164 ms QT Int : 450 ms P-R-T Axes : 084 -52 022 degrees QTc Int : 499 ms Normal sinus rhythm Right bundle branch block Left anterior fascicular block Bifascicular block Abnormal ECG Confirmed by JULEE URENA MD ([id number]), food editor DINORA JEFFERSON ([id number]) on 06/25/2018 1:35:51 PM Referred By: Confirmed By:JULEE URENA MD
== END 2018-06-20 13:20 | disposition home health service (06) | DRG 388 ==
LOC: ERS 14:13 → T4-A 06-13 09:39
PROVIDERS: ADMIT Internal Medicine; ATTEND Internal Medicine
PROC: 5A1D70Z Performance of Urinary Filtration, Intermittent, Less than 6 Hours Per Day (ICD-10-PCS; principal; 2018-06-14)
PROC: 5A1D70Z Performance of Urinary Filtration, Intermittent, Less than 6 Hours Per Day (ICD-10-PCS; 2018-06-16)
PROC: 5A1D70Z Performance of Urinary Filtration, Intermittent, Less than 6 Hours Per Day (ICD-10-PCS; 2018-06-18)
DX: K56.41 Fecal impaction (principal); N18.6 End stage renal disease; N39.0 Urinary tract infection, site not specified; I12.0 Hypertensive chronic kidney disease with stage 5 chronic kidney disease or end stage renal disease; I69.354 Hemiplegia and hemiparesis following cerebral infarction affecting left non-dominant side; K92.1 Melena; D61.818 Other pancytopenia; D63.1 Anemia in chronic kidney disease; E11.22 Type 2 diabetes mellitus with diabetic chronic kidney disease; I25.10 Atherosclerotic heart disease of native coronary artery without angina pectoris; K21.9 Gastro-esophageal reflux disease without esophagitis; Z99.2 Dependence on renal dialysis; Z88.5 Allergy status to narcotic agent; Z79.82 Long term (current) use of aspirin; Z79.4 Long term (current) use of insulin; Z79.899 Other long term (current) drug therapy; Z90.12 Acquired absence of left breast and nipple; Z90.5 Acquired absence of kidney; Z95.5 Presence of coronary angioplasty implant and graft
CPT/HCPCS: 36415; 36416; 51701; 71045; 74018; 80048; 80053; 81003; 81015; 82274; 82550; 82553; 82728; 83540; 83550; 83690; 83880; 84484; 85025; 86850; 86900; 86901; 87086; 90935; 93005; 96361; 96365; 96366; 96367; 96376; A4353; C9113; G0257; J0696; J7050; Q0163; Q4081

== ENCOUNTER 2018-07-07 10:05 | Emergency (ER) | payer MEDICARE ==
[2018-07-07 11:05] LABS: #Lymphocytes 1.5 thou/uL (1.20-3.40); #Monocytes 0.5 thou/uL (0.11-0.59); #Neutrophils 5.6 thou/uL (1.40-6.50); %Basophils 0.2 % (0.0-1.0); %Eosinophils 0.2 % (0.0-10.0); %Lymphocytes 19.3 % (21.0-51.0); %Monocytes 6.5 % (0.0-10.0); %Neutrophils 73.8 % (42.0-75.0); Hemoglobin 11.2 g/dL (12.0-16.0); Mean Corpuscular HGB CONC 32.3 g/dL (32.0-36.0); Mean Corpuscular Hemoglobin 30.1 pg (27.0-31.0); Mean Platelet Volume 7.2 fL (7.4-10.4); Platelet Count 175 thou/uL (130-400); RBC Distribution Width 17.3 % (11.5-14.5); Red Blood Cell (RBC) Count 3.74 mill/uL (4.20-5.40); White Blood Cell (WBC) Count 7.5 thou/uL (4.8-10.8)
[2018-07-07 11:12] LABS: Bilirubin Negative (Negative); Blood, Urine Large (Negative); Clarity TURBID (Clear); Glucose, Urine (Dipstick) 100 mg/dL (Negative); Leukocyte Large (Negative); Nitrite Negative (Negative); Protein, Urine (Dipstick) 300 mg/dL (Neg-Trace); Specific Gravity, Urine 1.011 (1.002-1.036); Urobilinogen 0.2 mg/dL (0.2-1.0); pH, Urine 6.5 (5.0-9.0)
[2018-07-07 11:15] LABS: Bacteria/HPF 4+ HPF (None Seen)
[2018-07-07 11:17] LABS: Hyaline Casts/LPF >50 HYALINE CAST LPF (0-3 Hyaline); Pathc Cast-AUWi Flag 30.33 (0-2.49); Yeast-AUWi Flag 44.7 (0-25.0)
[2018-07-07 11:25] LABS: Manual Microscopic Reviewed? No Path Casts Seen; Yeast-All Forms None Seen HPF (None Seen)
--- NOTE | 2018-07-07 11:30 | CT ---
CT OF THE ABDOMEN AND PELVIS WITH IV CONTRAST: Date: 07/07/18 INDICATION: Abdominal pain. COMPARISON: Prior CT of abdomen and pelvis dated 06/06/18. FINDINGS: There is a small left pleural effusion and left basilar atelectasis. Gallbladder is surgically absent. There is mild intrahepatic and extrahepatic biliary ductal dilatati on likely related to patient's post cholecystectomy state. The atrophic changes involving portions of the body of the pancreas appear similar. The left kidney and adrenal gland are surgically absent. There are numerous calcified granuloma within the spleen. Spleen measures 14.9 cm. No focal right renal lesion or hydronephrosis is evident. There are renal vascular calcifications inv olving the right kidney. There are moderate calcifications involving the abdominopelvic vasculature. No free fluid or enlarged lymph nodes are evident. There is a moderate amount of retained stool within the colon, with mild surrounding perirectal infla mmatory stranding. There is prominent wall thickening involving the bladder. There is postsurgical change consistent with left hip fracture repair that is similar to the prior ex am. No acute osseous abnormality is evident. There is scattered degenerative osteoarthritic change. T here is diffuse osteopenia. The left hip fracture appears incompletely healed. IMPRESSION: 1. Interval development of moderate wall thickening involving the bladder, suspicious for cystitis. 2. Moderate amount of retained stool within the colon with mild perirectal edema. Recommend correlat ion for constipation. 3. Instrumented ununited left intertrochanteric fracture. 4. Persistent splenomegaly at 14.9 cm greatest craniocaudad dimension. This is stable to the 2016 ev aluation. 5. Small left pleural effusion and left basilar atelectasis. POS: OFF
[2018-07-07 11:33] LABS: ALT (SGPT) Less than 7 U/L (8-55); AST (SGOT) 12 U/L (5-34); Albumin 3.1 g/dL (3.4-4.8); Alkaline Phosphatase 139 U/L (40-150); Anion Gap 15 mmol/L (10-20); BUN (Urea Nitrogen) 16 mg/dL (9.8-20.1); Bilirubin, Total 0.5 mg/dL (0.2-1.2); Calc. Creatinine Clearance 0 mL/min (70-130); Carbon Dioxide 29 mmol/L (23-31); Estimated GFR-MDRD 9; Globulin 3.8 g/dL (2.4-3.5); Glucose 167 mg/dL (80-115); Lipase 14 U/L (8-78); Protein, Total 6.9 g/dL (6.0-8.3)
[2018-07-07] MEDS ORDERED: cefTRIAXone\\ROCEPHIN 1 GM VIAL ONE ×2 (11:40→11:41)
[2018-07-07 11:44] LABS: Chloride 95 mmol/L (98-107); Potassium 3.6 mmol/L (3.5-5.1); Sodium 135 mmol/L (136-145)
--- NOTE | 2018-07-09 21:47 | EKG ---
Test Reason : Blood Pressure : / mmHG Vent. Rate : 087 BPM Atrial Rate : 087 BPM P-R Int : 138 ms QRS Dur : 142 ms QT Int : 416 ms P-R-T Axes : 034 -57 072 degrees QTc Int : 500 ms Normal sinus rhythm Right bundle branch block Left anterior fascicular block Bifascicular block Abnormal ECG Confirmed by MALATHI WANG ([id number]), food expeditor BRANDAN FERRELL ([id number]) on 07/09/2018 9:46:40 PM Referred By: Confirmed By:MALATHI WANG
== END 2018-07-07 13:23 | disposition home or self-care (01) ==
LOC: ERS 10:05
DX: R10.32 Left lower quadrant pain (principal); N39.0 Urinary tract infection, site not specified; E78.5 Hyperlipidemia, unspecified; I50.9 Heart failure, unspecified; Z99.2 Dependence on renal dialysis; I13.0 Hypertensive heart and chronic kidney disease with heart failure and stage 1 through stage 4 chronic kidney disease, or unspecified chronic kidney disease; N18.9 Chronic kidney disease, unspecified; E11.22 Type 2 diabetes mellitus with diabetic chronic kidney disease; Z79.899 Other long term (current) drug therapy; Z79.82 Long term (current) use of aspirin; Z79.4 Long term (current) use of insulin; Z86.73 Personal history of transient ischemic attack (TIA), and cerebral infarction without residual deficits
CPT/HCPCS: 36415; 51701; 74177; 80053; 81003; 81015; 83690; 85025; 87077; 87086; 87186; 93005; 96365; A4353; J0696

== ENCOUNTER 2018-08-02 15:03 | Emergency (ER) | payer MEDICARE ==
[2018-08-02 15:38] LABS: Base Excess-Venous 7.3 mmol/L (-2.0 to 3.0); Bicarbonate (HCO3v) 33.8 mmol/L (22.0-28.0); CO2 Tension (PvCO2) 54.6 mmHg (40.0-50.0); Calcium, Ionized 1.05 mmol/L (See Comments:); Chloride 97 mmol/L (98-107); Hemoglobin - Calc 13.3 g/dL (12.0-16.0); Sodium 141 mmol/L (138-145); T. Carbon Dioxide 35.5 mmol/L (22.0-28.0); vO2 Saturation-calc 53.4 % (60.0-85.0)
[2018-08-02 15:38] LABS: #Eosinphils 0.1 thou/uL (0.0-0.7); #Lymphocytes 1.3 thou/uL (1.20-3.40); #Monocytes 0.3 thou/uL (0.11-0.59); #Neutrophils 2.3 thou/uL (1.40-6.50); %Basophils 0.9 % (0.0-1.0); %Eosinophils 1.6 % (0.0-10.0); %Lymphocytes 32.9 % (21.0-51.0); %Monocytes 6.3 % (0.0-10.0); %Neutrophils 58.3 % (42.0-75.0); Hemoglobin 11.9 g/dL (12.0-16.0); Mean Corpuscular HGB CONC 30.8 g/dL (32.0-36.0); Mean Platelet Volume 7.7 fL (7.4-10.4); Platelet Count 139 thou/uL (130-400); RBC Distribution Width 15.9 % (11.5-14.5); Red Blood Cell (RBC) Count 4.27 mill/uL (4.20-5.40)
[2018-08-02 15:54] LABS: ALT (SGPT) 8 U/L (8-55); AST (SGOT) 17 U/L (5-34); Albumin 3.2 g/dL (3.4-4.8); Alkaline Phosphatase 124 U/L (40-150); Anion Gap 12 mmol/L (10-20); BUN (Urea Nitrogen) 22 mg/dL (9.8-20.1); Bilirubin, Total 0.4 mg/dL (0.2-1.2); CK (CPK) 16 U/L (29-168); Calc. Creatinine Clearance 0 mL/min (70-130); Calcium 8.5 mg/dL (7.8-10.44); Carbon Dioxide 35 mmol/L (23-31); Chloride 96 mmol/L (98-107); Estimated GFR-MDRD 14; Globulin 3.8 g/dL (2.4-3.5); Glucose 132 mg/dL (80-115); Lipase 29 U/L (8-78); Potassium 3.2 mmol/L (3.5-5.1); Sodium 140 mmol/L (136-145)
--- NOTE | 2018-08-02 16:30 | CT ---
CT OF THE BRAIN WITHOUT CONTRAST: 08/02/18 HISTORY: Altered mental status. FINDINGS: Comparison is made with exam of 05/23/18. Changes of chronic small vessel ischemic disease and right periventricular white matter infarct are a gain seen. There is an old infarction in the right periventricular white matter extending into the ex ternal capsule. No evidence of acute infarct, hemorrhage, midline shift, or abnormal extra-axial flui d collections are seen. The ventricular size is appropriate and the basilar cisterns patent. The bony calvarium is intact. The visualized paranasal sinuses and mastoid air cells are well aerated. IMPRESSION: No CT evidence of acute intracranial process. POS: TPC
--- NOTE | 2018-08-02 16:34 | CT ---
CT PULMONARY ANGIOGRAM WITH IV CONTRAST AND 3D POSTPROCESSIN08/02/18 HISTORY: Unresponsive, patient was transported from dialysis. FINDINGS: There is good contrast opacification of the pulmonary artery vasculature without filling defects to s uggest pulmonary embolism. There are vascular calcifications without evidence of thoracic aortic aneu rysm or dissection. No pericardial or right pleural effusions seen. There is a tiny left pleural effu laron. No pneumothoraces, focal areas of consolidation or lung masses are identified. There are mild d ependent changes in the lung bases. There are mild degenerative changes in the spine. IMPRESSION: No CT evidence of pulmonary embolism. POS: TPC
== END 2018-08-02 18:18 | disposition home or self-care (01) ==
LOC: ERS 15:03
DX: I46.2 Cardiac arrest due to underlying cardiac condition (principal); E11.9 Type 2 diabetes mellitus without complications; E78.5 Hyperlipidemia, unspecified; I11.0 Hypertensive heart disease with heart failure; I50.9 Heart failure, unspecified; Z99.2 Dependence on renal dialysis; Z79.899 Other long term (current) drug therapy; Z79.4 Long term (current) use of insulin; Z79.82 Long term (current) use of aspirin
CPT/HCPCS: 36415; 70450; 71275; 80053; 82010; 82140; 82330; 82550; 82803; 83690; 83880; 84484; 85025; 93005; Q9966

== ENCOUNTER 2018-10-17 10:17 | Outpatient (CLI) | payer MEDICARE ==
--- NOTE | 2018-10-31 08:20 | RAD ---
MODIFIED BARIUM SWALLOW: HISTORY: Dysphagia. Difficulty swallowing. FINDINGS/IMPRESSION: Exam was performed by speech pathology with multiple consistencies. Video review is available and dem onstrates difficulty in oral control, manipulation, and initiation of swallowing. Deep penetration with liquids. Coughing by the patient with evidence of aspiration. Significant pooling within the olivia lecula and piriform sinuses. Partial clearing upon secondary swallowing. Improved clearance with neck flexed. The esophagus below the level of the hypopharynx was not evaluated. Fluoroscopy time 46 seconds. Please see separate detailed report from speech pathology. Transcribed Date/Time: 10/31/2018 8:45 AM
== END 2018-10-17 10:18 | disposition home or self-care (01) ==
PROVIDERS: ATTEND Internal Medicine
DX: R13.10 Dysphagia, unspecified (principal); R63.3 Feeding difficulties; R05 Cough
CPT/HCPCS: 74230

== ENCOUNTER 2018-11-03 09:26 | Emergency (ER) | payer MEDICARE ==
--- NOTE | 2018-11-03 10:20 | RAD ---
EXAM: Left rib series with chest x-ray HISTORY: Rib pain COMPARISON: None FINDINGS: Single view of the chest shows a normal sized cardiomediastinal silhouette. There is no matthieu dence of consolidation, mass, or pleural effusion. Multiple surgical clips are seen in the upper abdomen. Multiple views of the left ribs shows no evidence of displaced rib fracture. No underlying pleural th ickening or pneumothorax are seen. IMPRESSION: 1. No evidence of displaced rib fracture. 2. No evidence of acute cardiopulmonary disease.
== END 2018-11-03 11:30 | disposition home or self-care (01) ==
LOC: ERS 09:26
DX: S20.212A Contusion of left front wall of thorax, initial encounter (principal); E78.5 Hyperlipidemia, unspecified; I13.0 Hypertensive heart and chronic kidney disease with heart failure and stage 1 through stage 4 chronic kidney disease, or unspecified chronic kidney disease; E11.22 Type 2 diabetes mellitus with diabetic chronic kidney disease; I50.9 Heart failure, unspecified; N18.9 Chronic kidney disease, unspecified; E11.40 Type 2 diabetes mellitus with diabetic neuropathy, unspecified; Z86.73 Personal history of transient ischemic attack (TIA), and cerebral infarction without residual deficits; Z79.899 Other long term (current) drug therapy; Z79.82 Long term (current) use of aspirin; Z79.4 Long term (current) use of insulin; W05.0XXA Fall from non-moving wheelchair, initial encounter

== ENCOUNTER 2019-02-01 15:00 | Outpatient (CLI) | payer MEDICARE ==
--- NOTE | 2019-02-01 15:30 | RAD ---
XR Knee Lt 2 View HISTORY: Left knee pain FINDINGS: No fracture or dislocation is identified. No joint effusion is seen.
== END 2019-02-01 15:01 | disposition home or self-care (01) ==
LOC: RAD-FRANK 15:00
PROVIDERS: ATTEND Internal Medicine
DX: M25.562 Pain in left knee (principal)

== ENCOUNTER 2020-10-15 11:09 | Emergency (ER) | payer MEDICARE | END 2020-10-15 12:00 | disposition home or self-care (01) | LOC: ERS 11:09 | DX: I13.2 Hypertensive heart and chronic kidney disease with heart failure and with stage 5 chronic kidney disease, or end stage renal disease (principal); I50.9 Heart failure, unspecified; N18.6 End stage renal disease; E11.22 Type 2 diabetes mellitus with diabetic chronic kidney disease; E11.65 Type 2 diabetes mellitus with hyperglycemia; E11.40 Type 2 diabetes mellitus with diabetic neuropathy, unspecified; E78.5 Hyperlipidemia, unspecified; Z99.2 Dependence on renal dialysis; Z86.73 Personal history of transient ischemic attack (TIA), and cerebral infarction without residual deficits; Z79.4 Long term (current) use of insulin; Z79.82 Long term (current) use of aspirin; Z79.899 Other long term (current) drug therapy | CPT/HCPCS: 36416; 93005 ==

== ENCOUNTER 2021-02-07 11:57 | Inpatient (IN) | payer MEDICARE ==
[~2021-02-07 11:57] MED LIST changes: -ISOVUE-370 76%-LOCM 1 ML ONE; +Iopamidol 370 76% 100 ML VIAL ONE
[2021-02-07 12:37] LABS: #Eosinphils 0.1 thou/uL (0.0-0.7); #Lymphocytes 1.5 thou/uL (1.20-3.40); #Monocytes 0.6 thou/uL (0.11-0.59); #Neutrophils 2.3 thou/uL (1.40-6.50); %Basophils 0.9 % (0.0-1.0); %Eosinophils 1.8 % (0.0-10.0); %Lymphocytes 32.9 % (21.0-51.0); %Monocytes 14.1 % (0.0-10.0); %Neutrophils 50.4 % (42.0-75.0); Hemoglobin 13.8 g/dL (12.0-16.0); Mean Corpuscular HGB CONC 32.1 g/dL (32.0-36.0); Mean Corpuscular Hemoglobin 31.1 pg (27.0-31.0); Mean Platelet Volume 8.6 fL (7.4-10.4); Platelet Count 108 thou/uL (130-400); RBC Distribution Width 17.1 % (11.5-14.5); Red Blood Cell (RBC) Count 4.43 mill/uL (4.20-5.40); White Blood Cell (WBC) Count 4.6 thou/uL (4.8-10.8)
[2021-02-07 12:52] LABS: ALT (SGPT) 13 U/L (8-55); AST (SGOT) 25 U/L (5-34); Albumin 2.9 g/dL (3.4-4.8); Alkaline Phosphatase 102 U/L (40-110); Anion Gap 18 mmol/L (10-20); BUN (Urea Nitrogen) 20 mg/dL (9.8-20.1); Bilirubin, Total 0.4 mg/dL (0.2-1.2); Calc. Creatinine Clearance 0 mL/min (70-130); Carbon Dioxide 21 mmol/L (23-31); Chloride 102 mmol/L (98-107); Globulin 5.3 g/dL (2.4-3.5); Glucose 254 mg/dL (83-110); Lipase 18 U/L (8-78); Potassium 4.9 mmol/L (3.5-5.1); Protein, Total 8.2 g/dL (5.8-8.1); Sodium 136 mmol/L (136-145)
[2021-02-07 12:54] LABS: Anisocytosis SLIGHT = 6-15 cells (100X) (0-5/hpf); MDiff Complete? YES; Platelet Morphology Comment Appears Decreased; Polychromasia SLIGHT = 2-3 cells (100X) (0-2/hpf)
[2021-02-07 14:39] LABS: Actual Bicarbonate (HCO3v) 26 mEq/L (22-28); Analyzer IN Cardio ER; Base Excess 1.1 mEq/L (-2.0 to +3.0); Calcium, Ionized (venous) 1.16 mmol/L (1.16-1.32); Chloride (VBG) 99 mmol/L (98-106); Hemoglobin (Hb) 14.7 g/dL (11.7-16.1); Potassium (VBG) 4.85 mmol/L (3.70-5.30)
[2021-02-07 15:17] LABS: Bilirubin Negative (Negative); Blood, Urine 2+ (Negative); Clarity Turbid (Clear); Glucose, Urine (Dipstick) 500 mg/dL (Negative); Ketone, Urine Negative (Negative); Leukocyte 500 Leu/uL (Negative); Nitrite Negative (Negative); Protein, Urine (Dipstick) 600 mg/dL (Neg-Trace); Specific Gravity, Urine 1.024 (1.002-1.036); Squamous Epithelial 0-3 HPF (0-3); Urobilinogen Normal mg/dL (Less than 2); WBC/HPF Greater than 50 HPF (0-3)
[2021-02-07 15:22] LABS: Bacteria/HPF 1+ HPF (None Seen); Renal Epithelial 0-3 HPF (None Seen)
[2021-02-07] MEDS ORDERED: Sodium Chloride 0.9% 100 ML ONE (16:19)
[2021-02-07] MEDS ORDERED: Cefepime 1 GM VIAL ONE (16:19)
[2021-02-07] MEDS ORDERED: Clindamycin/D5W 900 mg/50 ml Premix Bag ONE (17:36)
[2021-02-07] MEDS ORDERED: Vancomycin 1 GM/200 ML BAG ONE (18:37)
[2021-02-07 18:46] LABS: SARS-CoV-2 NAA Rapid Test Not Detected (NotDetected)
[2021-02-07] MEDS ORDERED: Senokot S 8.6-50 MG TAB PO PRN (20:20)
[2021-02-07] MEDS ORDERED: Acetaminophen 650 MG Suppository PR PRN (20:20)
[2021-02-07] MEDS ORDERED: Ondansetron PF 4 MG/2 ML Vial IVP PRN (20:20)
[2021-02-07] MEDS ORDERED: Bisacodyl 10 MG SUPP PR PRN (20:20)
[2021-02-07] MEDS ORDERED: Acetaminophen 325 MG TAB PO PRN (20:20)
[2021-02-07] MEDS ORDERED: hydrALAZINE 20 MG/ML VIAL SLOW IVP PRN (20:24)
[2021-02-07] MEDS: Famotidine/PF 20 mg/2ml Vial SLOW IVP SCH (22:04)
[2021-02-07] MEDS ORDERED: HOLD VANCOMYCIN FOR LEVEL >20 FS SCH (22:15)
[2021-02-07] MEDS ORDERED: Vancomycin HCl 500 MG in Sodium Chloride 0.9% 100 ML IVPB SCH (22:15)
[2021-02-07] MEDS ORDERED: Vancomycin HCl 750 MG in Sodium Chloride 0.9% 250 ML 250 ML IVPB SCH (22:15)
[2021-02-07] MEDS ORDERED: Vancomycin HCl 250 MG in Sodium Chloride 0.9% 100 ML IVPB SCH (22:15)
[2021-02-07] MEDS ORDERED: Vancomycin 1 GM in Premix Bag 1 BAG IVPB SCH (22:15)
[2021-02-08] MEDS ORDERED: Dextrose 50% Abboject 50 ML SYRINGE SLOW IVP PRN (02:21)
[2021-02-08] MEDS ORDERED: HumaLOG 300 UNITS/3 ML VIAL SC PRN (02:21)
[2021-02-08] MEDS ORDERED: Dextrose 5% in Water 1,000 ML IV PRN (02:21)
[2021-02-08] MEDS: HumaLOG 300 UNITS/3 ML VIAL SC PRN (06:22)
[2021-02-08 06:39] LABS: ALT (SGPT) 17 U/L (8-55); AST (SGOT) 34 U/L (5-34); Albumin 2.7 g/dL (3.4-4.8); Alkaline Phosphatase 93 U/L (40-110); Anion Gap 19 mmol/L (10-20); BUN (Urea Nitrogen) 26 mg/dL (9.8-20.1); Bilirubin, Total 0.4 mg/dL (0.2-1.2); Calc. Creatinine Clearance 8 mL/min (70-130); Calcium 8.6 mg/dL (7.8-10.44); Carbon Dioxide 19 mmol/L (23-31); Chloride 102 mmol/L (98-107); Globulin 4.9 g/dL (2.4-3.5); Glucose 178 mg/dL (83-110); Potassium 4.8 mmol/L (3.5-5.1); Protein, Total 7.6 g/dL (5.8-8.1); Sodium 135 mmol/L (136-145)
[2021-02-08 08:09] LABS: Vancomycin, Random 17.6 ug/mL (See Comment)
[2021-02-08 08:13] LABS: #Eosinphils 0.1 thou/uL (0.0-0.7); #Lymphocytes 1.1 thou/uL (1.20-3.40); #Monocytes 0.5 thou/uL (0.11-0.59); #Neutrophils 2.9 thou/uL (1.40-6.50); %Basophils 0.9 % (0.0-1.0); %Eosinophils 1.4 % (0.0-10.0); %Lymphocytes 24.6 % (21.0-51.0); %Monocytes 10.5 % (0.0-10.0); %Neutrophils 62.6 % (42.0-75.0); Hemoglobin 12.7 g/dL (12.0-16.0); Mean Corpuscular HGB CONC 31.3 g/dL (32.0-36.0); Mean Corpuscular Hemoglobin 29.4 pg (27.0-31.0); Mean Corpuscular Volume 94.1 fL (78.0-98.0); Mean Platelet Volume 8.5 fL (7.4-10.4); Platelet Count 106 thou/uL (130-400); RBC Distribution Width 17.9 % (11.5-14.5); Red Blood Cell (RBC) Count 4.33 mill/uL (4.20-5.40); White Blood Cell (WBC) Count 4.6 thou/uL (4.8-10.8)
[2021-02-08] MEDS: Vancomycin HCl 250 MG in Sodium Chloride 0.9% 100 ML IVPB SCH ×2 (10:43→16:58)
[2021-02-08] MEDS ORDERED: Bupivacaine 0.25% HCL 30 ML VIAL ONE (14:20)
[2021-02-08] MEDS ORDERED: Lidocaine 1% w/Epinephrine 1:100K 20 ML VIAL ONE (14:20)
[2021-02-08] MEDS ORDERED: Fentanyl 100 MCG/2 ML VIAL ONE (14:29)
[2021-02-08] MEDS ORDERED: Dexamethasone 20 MG/5 ML VIAL ONE (14:39)
[2021-02-08] MEDS ORDERED: Ondansetron PF 4 MG/2 ML Vial ONE (14:39)
[2021-02-08] MEDS ORDERED: Lidocaine 1% PF 5 ML VIAL ONE (14:39)
[2021-02-08] MEDS ORDERED: PROPOFOL 200 MG/20 ML VIAL ONE (14:39)
[2021-02-08] MEDS: Sevelamer Carbonate 800 MG TAB PO SCH ×2 (17:30→18:51)
[2021-02-08] MEDS: Cefepime 0.5 GM in Sodium Chloride 0.9% 100 ML IVPB SCH (17:45)
[2021-02-08] MEDS: busPIRone HCl 10 MG TAB PO SCH (20:13)
[2021-02-08] MEDS: cloNIDine 0.1 MG TAB PO SCH (20:13)
[2021-02-08] MEDS: Famotidine/PF 20 mg/2ml Vial SLOW IVP SCH (20:13)
[2021-02-09 06:00] LABS: #Lymphocytes 1.1 thou/uL (1.20-3.40); #Monocytes 0.2 thou/uL (0.11-0.59); %Basophils 0.2 % (0.0-1.0); %Eosinophils 0.5 % (0.0-10.0); %Lymphocytes 16.9 % (21.0-51.0); %Monocytes 3.5 % (0.0-10.0); Hemoglobin 12.1 g/dL (12.0-16.0); Mean Corpuscular HGB CONC 32.8 g/dL (32.0-36.0); Mean Corpuscular Hemoglobin 31.3 pg (27.0-31.0); Mean Corpuscular Volume 95.5 fL (78.0-98.0); Mean Platelet Volume 8.6 fL (7.4-10.4); Platelet Count 101 thou/uL (130-400); RBC Distribution Width 17.7 % (11.5-14.5); Red Blood Cell (RBC) Count 3.87 mill/uL (4.20-5.40); White Blood Cell (WBC) Count 6.3 thou/uL (4.8-10.8)
[2021-02-09 06:27] LABS: ALT (SGPT) 17 U/L (8-55); AST (SGOT) 26 U/L (5-34); Albumin 2.9 g/dL (3.4-4.8); Alkaline Phosphatase 97 U/L (40-110); Anion Gap 21 mmol/L (10-20); BUN (Urea Nitrogen) 24 mg/dL (9.8-20.1); Bilirubin, Total 0.4 mg/dL (0.2-1.2); Calc. Creatinine Clearance 11 mL/min (70-130); Calcium 8.6 mg/dL (7.8-10.44); Carbon Dioxide 21 mmol/L (23-31); Chloride 100 mmol/L (98-107); Globulin 4.9 g/dL (2.4-3.5); Glucose 243 mg/dL (83-110); Phosphorus 4.4 mg/dL (2.3-4.7); Potassium 5.3 mmol/L (3.5-5.1); Protein, Total 7.8 g/dL (5.8-8.1); Sodium 137 mmol/L (136-145)
[2021-02-09] MEDS: HumaLOG 300 UNITS/3 ML VIAL SC PRN ×2 (06:38→16:28)
[2021-02-09] MEDS ORDERED: NPH, Human Insulin Isophane 300 UNIT/3 ML VIAL SC SCH (07:30)
[2021-02-09] MEDS: Amlodipine 5 MG TAB PO SCH (08:44)
[2021-02-09] MEDS: busPIRone HCl 10 MG TAB PO SCH ×2 (12:03→21:25)
[2021-02-09] MEDS: Folic Acid/Vit B Comp W-C PO SCH (12:03)
[2021-02-09] MEDS: Atorvastatin Calcium 10 MG TAB PO SCH (12:04)
[2021-02-09] MEDS: Sevelamer Carbonate 800 MG TAB PO SCH ×4 (12:04→18:43)
[2021-02-09] MEDS: cloNIDine 0.1 MG TAB PO SCH ×2 (12:05→22:11)
[2021-02-09] MEDS: Cefepime 0.5 GM in Sodium Chloride 0.9% 100 ML IVPB SCH (16:19)
[2021-02-09] MEDS ORDERED: Enoxaparin Sodium 40 MG/0.4 ML SYRINGE SC SCH (21:00)
[2021-02-09] MEDS ORDERED: Lantus 1000 UNITS/10 ML VIAL SC SCH (21:00)
[2021-02-09] MEDS: Famotidine/PF 20 mg/2ml Vial SLOW IVP SCH (21:25)
[2021-02-10] MEDS: HumaLOG 300 UNITS/3 ML VIAL SC PRN ×2 (06:11→12:24)
[2021-02-10 06:25] LABS: #Lymphocytes 1.5 thou/uL (1.20-3.40); #Monocytes 0.4 thou/uL (0.11-0.59); #Neutrophils 4.4 thou/uL (1.40-6.50); %Basophils 0.7 % (0.0-1.0); %Eosinophils 0.5 % (0.0-10.0); %Lymphocytes 23.2 % (21.0-51.0); %Monocytes 6.4 % (0.0-10.0); %Neutrophils 69.2 % (42.0-75.0); Hemoglobin 12.3 g/dL (12.0-16.0); Mean Corpuscular HGB CONC 33.6 g/dL (32.0-36.0); Mean Corpuscular Volume 95.3 fL (78.0-98.0); Mean Platelet Volume 9.2 fL (7.4-10.4); Platelet Count 90 thou/uL (130-400); RBC Distribution Width 17.9 % (11.5-14.5); Red Blood Cell (RBC) Count 3.84 mill/uL (4.20-5.40); White Blood Cell (WBC) Count 6.4 thou/uL (4.8-10.8)
[2021-02-10 06:34] LABS: Anion Gap 15 mmol/L (10-20); BUN (Urea Nitrogen) 40 mg/dL (9.8-20.1); Calc. Creatinine Clearance 7 mL/min (70-130); Carbon Dioxide 26 mmol/L (23-31); Chloride 100 mmol/L (98-107); Potassium 4.6 mmol/L (3.5-5.1); Sodium 136 mmol/L (136-145)
[2021-02-10 06:35] LABS: ALT (SGPT) 21 U/L (8-55); AST (SGOT) 42 U/L (5-34); Albumin 2.9 g/dL (3.4-4.8); Alkaline Phosphatase 122 U/L (40-110); Bilirubin, Total 0.4 mg/dL (0.2-1.2); Calcium 8.8 mg/dL (7.8-10.44); Glucose 291 mg/dL (83-110); Magnesium 2.1 mg/dL (1.6-2.6); Phosphorus 2.8 mg/dL (2.3-4.7); Protein, Total 7.9 g/dL (5.8-8.1)
[2021-02-10] MEDS: Amlodipine 5 MG TAB PO SCH (09:00)
[2021-02-10] MEDS: cloNIDine 0.1 MG TAB PO SCH ×2 (09:00→21:09)
[2021-02-10] MEDS: Folic Acid/Vit B Comp W-C PO SCH (09:03)
[2021-02-10] MEDS: busPIRone HCl 10 MG TAB PO SCH ×2 (09:03→21:11)
[2021-02-10] MEDS: Sevelamer Carbonate 800 MG TAB PO SCH ×3 (09:04→18:06)
[2021-02-10] MEDS: Atorvastatin Calcium 10 MG TAB PO SCH (09:04)
[2021-02-10] MEDS: Cefepime 0.5 GM in Sodium Chloride 0.9% 100 ML IVPB SCH (16:23)
[2021-02-10] MEDS ORDERED: Sevelamer 2.4 GM PACKET PO SCH (18:30)
[2021-02-10] MEDS: Famotidine/PF 20 mg/2ml Vial SLOW IVP SCH (21:09)
[2021-02-10] MEDS: Enoxaparin Sodium 30 MG/0.3 ML SYRINGE SC SCH (21:11)
[2021-02-10] MEDS: Lantus 1000 UNITS/10 ML VIAL SC SCH (21:25)
[2021-02-11 07:39] LABS: ALT (SGPT) 16 U/L (8-55); AST (SGOT) 23 U/L (5-34); Albumin 2.7 g/dL (3.4-4.8); Alkaline Phosphatase 86 U/L (40-110); Anion Gap 17 mmol/L (10-20); BUN (Urea Nitrogen) 50 mg/dL (9.8-20.1); Bilirubin, Total 0.5 mg/dL (0.2-1.2); Calc. Creatinine Clearance 6 mL/min (70-130); Calcium 8.6 mg/dL (7.8-10.44); Carbon Dioxide 25 mmol/L (23-31); Chloride 102 mmol/L (98-107); Globulin 4.4 g/dL (2.4-3.5); Glucose 171 mg/dL (83-110); Magnesium 2.1 mg/dL (1.6-2.6); Phosphorus 2.8 mg/dL (2.3-4.7); Potassium 5.1 mmol/L (3.5-5.1); Protein, Total 7.1 g/dL (5.8-8.1); Sodium 139 mmol/L (136-145)
[2021-02-11 08:13] LABS: #Lymphocytes 1.3 thou/uL (1.20-3.40); #Monocytes 0.3 thou/uL (0.11-0.59); %Basophils 0.5 % (0.0-1.0); %Eosinophils 0.9 % (0.0-10.0); %Lymphocytes 27.4 % (21.0-51.0); %Monocytes 6.7 % (0.0-10.0); %Neutrophils 64.5 % (42.0-75.0); Hemoglobin 12.5 g/dL (12.0-16.0); Mean Corpuscular HGB CONC 32.9 g/dL (32.0-36.0); Mean Corpuscular Hemoglobin 31.3 pg (27.0-31.0); Mean Corpuscular Volume 94.9 fL (78.0-98.0); Platelet Count 83 thou/uL (130-400); RBC Distribution Width 17.9 % (11.5-14.5); Red Blood Cell (RBC) Count 4.01 mill/uL (4.20-5.40); White Blood Cell (WBC) Count 4.7 thou/uL (4.8-10.8)
[2021-02-11] MEDS: Sevelamer 2.4 GM PACKET PO SCH ×3 (09:05→17:46)
[2021-02-11] MEDS: Amlodipine 5 MG TAB PO SCH (09:05)
[2021-02-11] MEDS: cloNIDine 0.1 MG TAB PO SCH ×2 (09:06→21:47)
[2021-02-11] MEDS: busPIRone HCl 10 MG TAB PO SCH ×2 (13:59→21:46)
[2021-02-11] MEDS: Folic Acid/Vit B Comp W-C PO SCH (13:59)
[2021-02-11] MEDS: Atorvastatin Calcium 10 MG TAB PO SCH (13:59)
[2021-02-11 14:07] LABS: Hep B Core Total Ab Non-Reactive (NonReactive); Hep B Core Total Index 0.49 S/CO (0-0.79); Hep B Surf Ag Non-Reactive S/CO (NonReactive); Hep C IgG Ab Non-Reactive (NonReactive); Hep C Index 0.17 S/CO (0-0.79)
[2021-02-11 14:16] LABS: HBSAB Concentration 17.06 mIU/mL; Hep B Surf AB Reactive (NonReactive)
[2021-02-11] MEDS: Megestrol Acetate 800 MG/20 ML UDCUP PO SCH (15:47)
[2021-02-11] MEDS: metroNIDAZOLE 500 MG TAB PO SCH (21:45)
[2021-02-11] MEDS: Famotidine/PF 20 mg/2ml Vial SLOW IVP SCH (21:46)
[2021-02-11] MEDS: Enoxaparin Sodium 30 MG/0.3 ML SYRINGE SC SCH (21:47)
[2021-02-11] MEDS: Lantus 1000 UNITS/10 ML VIAL SC SCH (21:48)
[2021-02-12 05:37] LABS: #Lymphocytes 1.2 thou/uL (1.20-3.40); #Monocytes 0.4 thou/uL (0.11-0.59); #Neutrophils 2.4 thou/uL (1.40-6.50); %Basophils 0.9 % (0.0-1.0); %Eosinophils 1.1 % (0.0-10.0); %Lymphocytes 30.2 % (21.0-51.0); %Monocytes 9.7 % (0.0-10.0); %Neutrophils 58.1 % (42.0-75.0); Hemoglobin 12.5 g/dL (12.0-16.0); Mean Corpuscular Hemoglobin 30.8 pg (27.0-31.0); Mean Corpuscular Volume 96.2 fL (78.0-98.0); Mean Platelet Volume 9.5 fL (7.4-10.4); Platelet Count 66 thou/uL (130-400); RBC Distribution Width 17.6 % (11.5-14.5); Red Blood Cell (RBC) Count 4.06 mill/uL (4.20-5.40); White Blood Cell (WBC) Count 4.1 thou/uL (4.8-10.8)
[2021-02-12 05:51] LABS: ALT (SGPT) 17 U/L (8-55); AST (SGOT) 37 U/L (5-34); Albumin 2.8 g/dL (3.4-4.8); Alkaline Phosphatase 84 U/L (40-110); Anion Gap 16 mmol/L (10-20); BUN (Urea Nitrogen) 25 mg/dL (9.8-20.1); Bilirubin, Total 0.5 mg/dL (0.2-1.2); Calc. Creatinine Clearance 10 mL/min (70-130); Calcium 8.4 mg/dL (7.8-10.44); Carbon Dioxide 28 mmol/L (23-31); Chloride 100 mmol/L (98-107); Globulin 4.2 g/dL (2.4-3.5); Glucose 140 mg/dL (83-110); Phosphorus 2.4 mg/dL (2.3-4.7); Potassium 4.5 mmol/L (3.5-5.1); Sodium 139 mmol/L (136-145)
[2021-02-12] MEDS: Sevelamer 2.4 GM PACKET PO SCH ×3 (09:04→16:39)
[2021-02-12] MEDS: Amlodipine 5 MG TAB PO SCH (09:04)
[2021-02-12] MEDS: Megestrol Acetate 800 MG/20 ML UDCUP PO SCH (09:04)
[2021-02-12] MEDS: busPIRone HCl 10 MG TAB PO SCH ×2 (09:05→20:41)
[2021-02-12] MEDS: Atorvastatin Calcium 10 MG TAB PO SCH (09:05)
[2021-02-12] MEDS: cloNIDine 0.1 MG TAB PO SCH ×2 (09:05→20:40)
[2021-02-12] MEDS: Folic Acid/Vit B Comp W-C PO SCH (09:05)
[2021-02-12] MEDS: metroNIDAZOLE 500 MG TAB PO SCH ×3 (09:05→20:38)
[2021-02-12] MEDS: Famotidine/PF 20 mg/2ml Vial SLOW IVP SCH (20:38)
[2021-02-12] MEDS: Enoxaparin Sodium 30 MG/0.3 ML SYRINGE SC SCH (20:41)
[2021-02-12] MEDS: Lantus 1000 UNITS/10 ML VIAL SC SCH (21:36)
[2021-02-13 06:08] LABS: #Eosinphils 0.1 thou/uL (0.0-0.7); #Lymphocytes 1.3 thou/uL (1.20-3.40); #Monocytes 0.3 thou/uL (0.11-0.59); %Basophils 0.7 % (0.0-1.0); %Eosinophils 1.3 % (0.0-10.0); %Lymphocytes 35.7 % (21.0-51.0); %Monocytes 8.4 % (0.0-10.0); Hemoglobin 12.3 g/dL (12.0-16.0); Mean Corpuscular HGB CONC 31.5 g/dL (32.0-36.0); Mean Corpuscular Hemoglobin 30.6 pg (27.0-31.0); Mean Corpuscular Volume 97.1 fL (78.0-98.0); Platelet Count 63 thou/uL (130-400); RBC Distribution Width 17.6 % (11.5-14.5); Red Blood Cell (RBC) Count 4.04 mill/uL (4.20-5.40); White Blood Cell (WBC) Count 3.8 thou/uL (4.8-10.8)
[2021-02-13 06:34] LABS: ALT (SGPT) 15 U/L (8-55); AST (SGOT) 22 U/L (5-34); Albumin 2.8 g/dL (3.4-4.8); Alkaline Phosphatase 81 U/L (40-110); BUN (Urea Nitrogen) 41 mg/dL (9.8-20.1); Bilirubin, Total 0.5 mg/dL (0.2-1.2); Calc. Creatinine Clearance 0 mL/min (70-130); Calcium 8.6 mg/dL (7.8-10.44); Carbon Dioxide 29 mmol/L (23-31); Chloride 100 mmol/L (98-107); Glucose 132 mg/dL (83-110); Magnesium 2.2 mg/dL (1.6-2.6); Phosphorus 2.4 mg/dL (2.3-4.7); Potassium 4.9 mmol/L (3.5-5.1); Protein, Total 6.8 g/dL (5.8-8.1); Sodium 139 mmol/L (136-145)
[2021-02-13 06:36] LABS: Anion Gap 15 mmol/L (10-20)
[2021-02-13] MEDS: Amlodipine 5 MG TAB PO SCH (09:08)
[2021-02-13] MEDS: busPIRone HCl 10 MG TAB PO SCH ×2 (09:08→21:05)
[2021-02-13] MEDS: Atorvastatin Calcium 10 MG TAB PO SCH (09:08)
[2021-02-13] MEDS: cloNIDine 0.1 MG TAB PO SCH ×2 (09:10→21:19)
[2021-02-13] MEDS: metroNIDAZOLE 500 MG TAB PO SCH ×3 (09:14→21:04)
[2021-02-13] MEDS: Sevelamer 2.4 GM PACKET PO SCH ×3 (09:14→17:00)
[2021-02-13] MEDS: Folic Acid/Vit B Comp W-C PO SCH (09:14)
[2021-02-13] MEDS: Megestrol Acetate 800 MG/20 ML UDCUP PO SCH (09:15)
[2021-02-13 09:34] LABS: Vancomycin, Random 14.3 ug/mL (See Comment)
[2021-02-13] MEDS ORDERED: Vancomycin HCl 500 MG in Sodium Chloride 0.9% 100 ML IVPB SCH ×2 (10:30→13:45)
[2021-02-13] MEDS: HumaLOG 300 UNITS/3 ML VIAL SC PRN (12:38)
[2021-02-13] MEDS: Enoxaparin Sodium 30 MG/0.3 ML SYRINGE SC SCH (21:05)
[2021-02-13] MEDS: Famotidine/PF 20 mg/2ml Vial SLOW IVP SCH (21:06)
[2021-02-13] MEDS: Lantus 1000 UNITS/10 ML VIAL SC SCH (21:07)
[2021-02-14 06:19] LABS: #Lymphocytes 1.5 thou/uL (1.20-3.40); #Monocytes 0.3 thou/uL (0.11-0.59); %Basophils 0.4 % (0.0-1.0); %Eosinophils 0.9 % (0.0-10.0); %Lymphocytes 38.3 % (21.0-51.0); %Monocytes 7.7 % (0.0-10.0); %Neutrophils 52.8 % (42.0-75.0); Hemoglobin 12.9 g/dL (12.0-16.0); Mean Corpuscular HGB CONC 31.6 g/dL (32.0-36.0); Mean Corpuscular Hemoglobin 30.5 pg (27.0-31.0); Mean Corpuscular Volume 96.5 fL (78.0-98.0); Mean Platelet Volume 10.2 fL (7.4-10.4); Platelet Count 65 thou/uL (130-400); RBC Distribution Width 17.5 % (11.5-14.5); Red Blood Cell (RBC) Count 4.23 mill/uL (4.20-5.40); White Blood Cell (WBC) Count 3.8 thou/uL (4.8-10.8)
[2021-02-14 06:33] LABS: ALT (SGPT) 20 U/L (8-55); AST (SGOT) 38 U/L (5-34); Albumin 2.9 g/dL (3.4-4.8); Alkaline Phosphatase 89 U/L (40-110); Anion Gap 13 mmol/L (10-20); BUN (Urea Nitrogen) 21 mg/dL (9.8-20.1); Bilirubin, Total 0.6 mg/dL (0.2-1.2); Calc. Creatinine Clearance 12 mL/min (70-130); Calcium 8.9 mg/dL (7.8-10.44); Carbon Dioxide 30 mmol/L (23-31); Chloride 100 mmol/L (98-107); Globulin 4.2 g/dL (2.4-3.5); Glucose 128 mg/dL (83-110); Potassium 4.4 mmol/L (3.5-5.1); Protein, Total 7.1 g/dL (5.8-8.1); Sodium 139 mmol/L (136-145)
[2021-02-14] MEDS: cloNIDine 0.1 MG TAB PO SCH (08:56)
[2021-02-14] MEDS: Folic Acid/Vit B Comp W-C PO SCH (08:56)
[2021-02-14] MEDS: Megestrol Acetate 800 MG/20 ML UDCUP PO SCH (08:57)
[2021-02-14] MEDS: metroNIDAZOLE 500 MG TAB PO SCH ×2 (08:57→16:31)
[2021-02-14] MEDS: Atorvastatin Calcium 10 MG TAB PO SCH (08:58)
[2021-02-14] MEDS: Amlodipine 5 MG TAB PO SCH (08:58)
[2021-02-14] MEDS: busPIRone HCl 10 MG TAB PO SCH (08:58)
[2021-02-14] MEDS: Sevelamer 2.4 GM PACKET PO SCH ×2 (08:59→12:04)
[2021-02-14 14:01] VITALS: BMI 21.3
[2021-02-14 17:06] VITALS: BP 116/67; TEMP 98.5
== END 2021-02-14 17:36 | disposition hospice, home (50) | DRG 981 ==
LOC: ERS 11:57 → SURG A 19:31
PROVIDERS: ADMIT Family Medicine; ATTEND Internal Medicine
PROC: 0D9P0ZZ Drainage of Rectum, Open Approach (ICD-10-PCS; 2021-02-08)
PROC: 5A1D70Z Performance of Urinary Filtration, Intermittent, Less than 6 Hours Per Day (ICD-10-PCS; principal; 2021-02-13)
DX: L02.31 Cutaneous abscess of buttock (principal); N18.6 End stage renal disease; E43 Unspecified severe protein-calorie malnutrition; K61.1 Rectal abscess; I69.354 Hemiplegia and hemiparesis following cerebral infarction affecting left non-dominant side; N39.0 Urinary tract infection, site not specified; R78.81 Bacteremia; I50.32 Chronic diastolic (congestive) heart failure; I13.2 Hypertensive heart and chronic kidney disease with heart failure and with stage 5 chronic kidney disease, or end stage renal disease; N76.4 Abscess of vulva; Z20.822 Contact with and (suspected) exposure to COVID-19; E11.22 Type 2 diabetes mellitus with diabetic chronic kidney disease; D63.1 Anemia in chronic kidney disease; I25.10 Atherosclerotic heart disease of native coronary artery without angina pectoris; E78.5 Hyperlipidemia, unspecified; B95.7 Other staphylococcus as the cause of diseases classified elsewhere; Z99.2 Dependence on renal dialysis; Z88.5 Allergy status to narcotic agent; Z88.8 Allergy status to other drugs, medicaments and biological substances; Z79.4 Long term (current) use of insulin; Z79.899 Other long term (current) drug therapy; Z90.49 Acquired absence of other specified parts of digestive tract; Z90.710 Acquired absence of both cervix and uterus; Z98.51 Tubal ligation status; Z98.890 Other specified postprocedural states; Z90.5 Acquired absence of kidney; Z85.3 Personal history of malignant neoplasm of breast; Z85.528 Personal history of other malignant neoplasm of kidney; Z68.21 Body mass index [BMI] 21.0-21.9, adult
CPT/HCPCS: 36415; 36416; 51701; 71045; 74177; 80053; 80202; 81003; 81015; 82805; 83605; 83690; 83735; 84100; 84484; 85025; 86704; 86706; 86803; 87040; 87077; 87086; 87149; 87186; 87340; 90935; 93005; 93306; 96365; 96367; G0257; J0692; J1100; J1650; J1815; J2405; J2704; J3010; J3370; J3490; Q9967; S0020; S0028; U0002

== ENCOUNTER 2021-02-15 17:40 | Inpatient (IN) | payer MEDICARE ==
[2021-02-15 18:23] LABS: #Lymphocytes 0.9 thou/uL (1.20-3.40); #Monocytes 0.4 thou/uL (0.11-0.59); #Neutrophils 3.1 thou/uL (1.40-6.50); %Basophils 0.5 % (0.0-1.0); %Eosinophils 0.9 % (0.0-10.0); %Neutrophils 69.6 % (42.0-75.0); Hemoglobin 12.1 g/dL (12.0-16.0); Mean Corpuscular HGB CONC 31.6 g/dL (32.0-36.0); Mean Corpuscular Hemoglobin 30.7 pg (27.0-31.0); Mean Corpuscular Volume 97.1 fL (78.0-98.0); Platelet Count 70 thou/uL (130-400); RBC Distribution Width 17.1 % (11.5-14.5); Red Blood Cell (RBC) Count 3.94 mill/uL (4.20-5.40); White Blood Cell (WBC) Count 4.4 thou/uL (4.8-10.8)
[2021-02-15 18:40] LABS: ALT (SGPT) 29 U/L (8-55); AST (SGOT) 63 U/L (5-34); Alkaline Phosphatase 84 U/L (40-110); Anion Gap 14 mmol/L (10-20); BUN (Urea Nitrogen) 12 mg/dL (9.8-20.1); Bilirubin, Total 0.6 mg/dL (0.2-1.2); Calc. Creatinine Clearance 0 mL/min (70-130); Calcium 8.8 mg/dL (7.8-10.44); Carbon Dioxide 25 mmol/L (23-31); Chloride 102 mmol/L (98-107); Globulin 4.5 g/dL (2.4-3.5); Glucose 122 mg/dL (83-110); Magnesium 1.9 mg/dL (1.6-2.6); Potassium 4.8 mmol/L (3.5-5.1); Protein, Total 7.5 g/dL (5.8-8.1); Sodium 136 mmol/L (136-145)
[2021-02-15 21:20] LABS: Bacteria/HPF None Seen HPF (None Seen); Bilirubin Negative (Negative); Blood, Urine 3+ (Negative); Clarity Extra Turbid (Clear); Glucose, Urine (Dipstick) 100 mg/dL (Negative); Ketone, Urine Negative (Negative); Leukocyte 500 Leu/uL (Negative); Nitrite Negative (Negative); Protein, Urine (Dipstick) 300 mg/dL (Neg-Trace); RBC/HPF 21-50 HPF (0-3); Squamous Epithelial None Seen HPF (0-3); Urobilinogen Normal mg/dL (Less than 2); WBC/HPF Greater than 50 HPF (0-3)
[2021-02-15] MEDS ORDERED: cefTRIAXone\\ROCEPHIN 1 GM VIAL ONE (21:38)
[2021-02-16] MEDS ORDERED: Acetaminophen 325 MG TAB PO PRN (00:35)
[2021-02-16] MEDS ORDERED: Acetaminophen 650 MG Suppository PR PRN (00:35)
[2021-02-16] MEDS ORDERED: Ondansetron ODT 4 MG TAB PO PRN (00:35)
[2021-02-16] MEDS ORDERED: Dextrose 5% in Water 1,000 ML IV PRN (00:35)
[2021-02-16] MEDS ORDERED: Dextrose 50% Abboject 50 ML SYRINGE SLOW IVP PRN (00:35)
[2021-02-16] MEDS ORDERED: Ondansetron PF 4 MG/2 ML Vial IVP PRN (00:35)
[2021-02-16 01:25] VITALS: BMI 19.1
[2021-02-16] MEDS ORDERED: Vancomycin HCl 250 MG in Sodium Chloride 0.9% 100 ML IVPB SCH (02:45)
[2021-02-16] MEDS ORDERED: Vancomycin HCl 750 MG in Sodium Chloride 0.9% 250 ML 250 ML IVPB SCH (02:45)
[2021-02-16] MEDS ORDERED: Vancomycin HCl 500 MG in Sodium Chloride 0.9% 100 ML IVPB SCH (02:45)
[2021-02-16] MEDS ORDERED: HOLD VANCOMYCIN FOR LEVEL >20 FS SCH (02:45)
[2021-02-16] MEDS ORDERED: Vancomycin 1 GM in Premix Bag 1 BAG IVPB SCH (02:45)
[2021-02-16] MEDS ORDERED: Vancomycin Sliding Scale 1 EACH FS ONE (02:45)
[2021-02-16 03:08] LABS: Lactic Acid 1.5 mmol/L (0.5-2.2)
[2021-02-16 05:48] LABS: #Lymphocytes 1.1 thou/uL (1.20-3.40); #Monocytes 0.4 thou/uL (0.11-0.59); #Neutrophils 1.4 thou/uL (1.40-6.50); %Basophils 0.8 % (0.0-1.0); %Eosinophils 0.9 % (0.0-10.0); %Lymphocytes 36.6 % (21.0-51.0); %Monocytes 12.7 % (0.0-10.0); Hemoglobin 11.5 g/dL (12.0-16.0); Mean Corpuscular HGB CONC 31.2 g/dL (32.0-36.0); Mean Corpuscular Hemoglobin 30.6 pg (27.0-31.0); Mean Platelet Volume 10.4 fL (7.4-10.4); Platelet Count 67 thou/uL (130-400); RBC Distribution Width 17.2 % (11.5-14.5); Red Blood Cell (RBC) Count 3.77 mill/uL (4.20-5.40)
[2021-02-16 05:53] LABS: Anion Gap 12 mmol/L (10-20); BUN (Urea Nitrogen) 16 mg/dL (9.8-20.1); Calc. Creatinine Clearance 12 mL/min (70-130); Calcium 8.5 mg/dL (7.8-10.44); Carbon Dioxide 28 mmol/L (23-31); Chloride 100 mmol/L (98-107); Glucose 118 mg/dL (83-110); Sodium 135 mmol/L (136-145)
[2021-02-16] MEDS ORDERED: Clindamycin/D5W 600 MG in Premix Bag 1 BAG IVPB SCH (06:00)
[2021-02-16] MEDS ORDERED: Vancomycin 1.5 GRAM/300 ML BAG 1.5 GM in Premix Bag 1 BAG IVPB SCH (09:00)
[2021-02-16] MEDS ORDERED: Heparin 5,000 UNITS/ML VIAL SC SCH (09:00)
[2021-02-16] MEDS ORDERED: metroNIDAZOLE 250 MG in Admixture Fee 2 EACH IVPB SCH (14:00)
[2021-02-16] MEDS ORDERED: MEROPENEM 1 GM/50 ML 1 GM in Premix Bag 1 BAG IVPB SCH (14:45)
[2021-02-16 15:42] LABS: SARS-CoV-2 PCR by NAA Not Detected (NotDetected)
[2021-02-16] MEDS ORDERED: Ciprofloxacin Lactate/D5W 200 MG in Premix Bag 1 BAG IVPB SCH (21:00)
[2021-02-17] MEDS ORDERED: hydrALAZINE 20 MG/ML VIAL SLOW IVP PRN (05:39)
[2021-02-17 06:08] LABS: #Lymphocytes 1.1 thou/uL (1.20-3.40); #Monocytes 0.4 thou/uL (0.11-0.59); %Basophils 1.2 % (0.0-1.0); %Eosinophils 1.1 % (0.0-10.0); %Lymphocytes 30.9 % (21.0-51.0); %Neutrophils 56.7 % (42.0-75.0); Hemoglobin 12.5 g/dL (12.0-16.0); Mean Corpuscular HGB CONC 32.2 g/dL (32.0-36.0); Mean Corpuscular Hemoglobin 30.7 pg (27.0-31.0); Mean Corpuscular Volume 95.4 fL (78.0-98.0); Mean Platelet Volume 10.1 fL (7.4-10.4); Platelet Count 73 thou/uL (130-400); RBC Distribution Width 16.8 % (11.5-14.5); Red Blood Cell (RBC) Count 4.08 mill/uL (4.20-5.40); White Blood Cell (WBC) Count 3.5 thou/uL (4.8-10.8)
[2021-02-17 06:12] LABS: Anion Gap 13 mmol/L (10-20); BUN (Urea Nitrogen) 27 mg/dL (9.8-20.1); Calc. Creatinine Clearance 8 mL/min (70-130); Calcium 8.4 mg/dL (7.8-10.44); Carbon Dioxide 29 mmol/L (23-31); Chloride 100 mmol/L (98-107); Glucose 215 mg/dL (83-110); Potassium 5.1 mmol/L (3.5-5.1); Sodium 137 mmol/L (136-145)
[2021-02-17] MEDS ORDERED: Megestrol Acetate 800 MG/20 ML UDCUP PO SCH (09:30)
[2021-02-17] MEDS ORDERED: Meropenem 500 MG in Sodium Chloride 0.9% 100 ML IVPB SCH (15:00)
[2021-02-17] MEDS: HumaLOG 300 UNITS/3 ML VIAL SC PRN ×2 (18:21→20:49)
[2021-02-18] MEDS: HumaLOG 300 UNITS/3 ML VIAL SC PRN ×2 (06:42→21:42)
[2021-02-18] MEDS: Megestrol Acetate 800 MG/20 ML UDCUP PO SCH (08:16)
[2021-02-18] MEDS ORDERED: Lorazepam 1 MG TAB PO PRN (15:56)
[2021-02-18] MEDS: Meropenem 500 MG in Sodium Chloride 0.9% 100 ML IVPB SCH (21:38)
[2021-02-19 05:45] LABS: Anion Gap 12 mmol/L (10-20); BUN (Urea Nitrogen) 22 mg/dL (9.8-20.1); Calc. Creatinine Clearance 10 mL/min (70-130); Calcium 9.4 mg/dL (7.8-10.44); Carbon Dioxide 33 mmol/L (23-31); Chloride 98 mmol/L (98-107); Glucose 256 mg/dL (83-110); Potassium 4.6 mmol/L (3.5-5.1); Sodium 138 mmol/L (136-145)
[2021-02-19] MEDS: HumaLOG 300 UNITS/3 ML VIAL SC PRN ×3 (06:30→21:19)
[2021-02-19] MEDS: Megestrol Acetate 800 MG/20 ML UDCUP PO SCH (07:22)
[2021-02-19] MEDS ORDERED: Aspirin 81 mg Enteric Coated Tablet PO SCH (14:30)
[2021-02-19] MEDS ORDERED: Aspirin 300 MG Suppository PR SCH (16:30)
[2021-02-19] MEDS ORDERED: Atorvastatin Calcium 40 MG TAB PO SCH (21:00)
[2021-02-19] MEDS: Meropenem 500 MG in Sodium Chloride 0.9% 100 ML IVPB SCH (21:10)
[2021-02-20] MEDS: HumaLOG 300 UNITS/3 ML VIAL SC PRN ×2 (06:16→13:49)
[2021-02-20] MEDS ORDERED: Aspirin 81 mg Enteric Coated Tablet PO SCH (09:00)
[2021-02-20] MEDS: Megestrol Acetate 800 MG/20 ML UDCUP PO SCH (13:49)
[2021-02-20 15:49] VITALS: BP 116/56; TEMP 98.6
== END 2021-02-20 17:14 | disposition hospice, home (50) | DRG 100 ==
LOC: ERS 17:40 → T4-A 23:24 → NEURO 02-16 03:31
PROVIDERS: ADMIT Student in an Organized Health Care Education/Training Program; ATTEND Internal Medicine
PROC: 4A10X4Z Monitoring of Central Nervous Electrical Activity, External Approach (ICD-10-PCS; principal; 2021-02-16)
DX: G40.909 Epilepsy, unspecified, not intractable, without status epilepticus (principal); N18.6 End stage renal disease; I63.9 Cerebral infarction, unspecified; I69.354 Hemiplegia and hemiparesis following cerebral infarction affecting left non-dominant side; I13.2 Hypertensive heart and chronic kidney disease with heart failure and with stage 5 chronic kidney disease, or end stage renal disease; N39.0 Urinary tract infection, site not specified; K61.1 Rectal abscess; G93.49 Other encephalopathy; I50.9 Heart failure, unspecified; I25.10 Atherosclerotic heart disease of native coronary artery without angina pectoris; E78.5 Hyperlipidemia, unspecified; E11.40 Type 2 diabetes mellitus with diabetic neuropathy, unspecified; E11.22 Type 2 diabetes mellitus with diabetic chronic kidney disease; D69.6 Thrombocytopenia, unspecified; D63.1 Anemia in chronic kidney disease; G93.89 Other specified disorders of brain; Z20.822 Contact with and (suspected) exposure to COVID-19; Z90.49 Acquired absence of other specified parts of digestive tract; Z90.710 Acquired absence of both cervix and uterus; Z98.51 Tubal ligation status; Z88.8 Allergy status to other drugs, medicaments and biological substances; Z99.2 Dependence on renal dialysis; Z95.5 Presence of coronary angioplasty implant and graft; Z79.4 Long term (current) use of insulin; Z79.899 Other long term (current) drug therapy
CPT/HCPCS: 36415; 36416; 70450; 70551; 71045; 80048; 80053; 81001; 83605; 83735; 83880; 84484; 85025; 87040; 87070; 87086; 87205; 90935; 93005; 95712; 95819; 95957; 96365; G0257; J0360; J0696; J1815; J2185; J3370; J3490; U0003; U0005

== ENCOUNTER 2021-02-25 16:00 | Inpatient (IN) | payer MEDICARE ==
[2021-02-25 18:02] LABS: #Eosinphils 0.1 thou/uL (0.0-0.7); #Lymphocytes 1.6 thou/uL (1.20-3.40); #Monocytes 0.4 thou/uL (0.11-0.59); #Neutrophils 3.3 thou/uL (1.40-6.50); %Basophils 0.5 % (0.0-1.0); %Eosinophils 1.1 % (0.0-10.0); %Lymphocytes 30.1 % (21.0-51.0); %Monocytes 7.1 % (0.0-10.0); %Neutrophils 61.2 % (42.0-75.0); Hemoglobin 14.3 g/dL (12.0-16.0); Mean Corpuscular HGB CONC 31.6 g/dL (32.0-36.0); Mean Corpuscular Hemoglobin 31.4 pg (27.0-31.0); Mean Corpuscular Volume 99.1 fL (78.0-98.0); Mean Platelet Volume 9.2 fL (7.4-10.4); Platelet Count 88 thou/uL (130-400); RBC Distribution Width 18.2 % (11.5-14.5); Red Blood Cell (RBC) Count 4.57 mill/uL (4.20-5.40); White Blood Cell (WBC) Count 5.4 thou/uL (4.8-10.8)
[2021-02-25 18:19] LABS: ALT (SGPT) 25 U/L (8-55); AST (SGOT) 34 U/L (5-34); Albumin 3.2 g/dL (3.4-4.8); Alkaline Phosphatase 160 U/L (40-110); Anion Gap 22 mmol/L (10-20); BUN (Urea Nitrogen) 95 mg/dL (9.8-20.1); Bilirubin, Total 0.9 mg/dL (0.2-1.2); Calc. Creatinine Clearance 0 mL/min (70-130); Carbon Dioxide 25 mmol/L (23-31); Chloride 95 mmol/L (98-107); Globulin 4.7 g/dL (2.4-3.5); Glucose 289 mg/dL (83-110); Phosphorus 3.9 mg/dL (2.3-4.7); Protein, Total 7.9 g/dL (5.8-8.1); Sodium 134 mmol/L (136-145)
[2021-02-25 18:30] LABS: Potassium 8.1 mmol/L (3.5-5.1)
[2021-02-25 19:08] LABS: Bacteria/HPF None Seen HPF (None Seen); Bilirubin Negative (Negative); Blood, Urine 1+ (Negative); Clarity Clear (Clear); Glucose, Urine (Dipstick) >=1000 mg/dL (Negative); Ketone, Urine 10 mg/dL (Negative); Leukocyte 250 Leu/uL (Negative); Nitrite Negative (Negative); Protein, Urine (Dipstick) 300 mg/dL (Neg-Trace); Specific Gravity, Urine 1.012 (1.002-1.036); Squamous Epithelial 0-3 HPF (0-3); Urobilinogen Normal mg/dL (Less than 2); WBC/HPF 21-50 HPF (0-3)
[2021-02-25] MEDS ORDERED: Sodium Bicarb 50 MEQ/50 ML Abboject 8.4% SYRINGE ONE ×2 (19:19→19:20)
[2021-02-25] MEDS ORDERED: Insulin Regular 300 UNITS/3 ML VIAL ONE (19:19)
[2021-02-25] MEDS ORDERED: Calcium Chloride 1 GM/10 ML Abboject SYRINGE ONE (19:19)
[2021-02-25] MEDS ORDERED: Dextrose 50% Abboject 50 ML SYRINGE ONE (19:19)
[2021-02-25] MEDS ORDERED: Acetaminophen 325 MG TAB PO PRN (20:14)
[2021-02-25] MEDS ORDERED: Ondansetron PF 4 MG/2 ML Vial IVP PRN (20:14)
[2021-02-25] MEDS ORDERED: Dextrose 50% Abboject 50 ML SYRINGE SLOW IVP PRN (20:18)
[2021-02-25] MEDS ORDERED: Dextrose 5% in Water 1,000 ML IV PRN (20:18)
[2021-02-25] MEDS ORDERED: HumaLOG 300 UNITS/3 ML VIAL SC PRN ×2 (20:18)
[2021-02-25 21:26] LABS: Troponin I 0.022 ng/mL (< 0.028)
[2021-02-26 00:14] LABS: Troponin I 0.025 ng/mL (< 0.028)
[2021-02-26] MEDS ORDERED: cefTRIAXone\\ROCEPHIN 1 GM VIAL ONE (01:19)
[2021-02-26] MEDS: cefTRIAXone\\ROCEPHIN 1 GM in Sodium Chloride 0.9% 100 ML IVPB SCH ×2 (01:36→20:14)
[2021-02-26 03:12] LABS: Troponin I 0.045 ng/mL (< 0.028)
[2021-02-26 04:41] LABS: #Eosinphils 0.1 thou/uL (0.0-0.7); #Lymphocytes 0.9 thou/uL (1.20-3.40); #Monocytes 0.3 thou/uL (0.11-0.59); #Neutrophils 2.5 thou/uL (1.40-6.50); %Basophils 0.7 % (0.0-1.0); %Eosinophils 1.3 % (0.0-10.0); %Lymphocytes 24.3 % (21.0-51.0); %Monocytes 7.1 % (0.0-10.0); %Neutrophils 66.6 % (42.0-75.0); Hemoglobin 13.1 g/dL (12.0-16.0); Mean Corpuscular HGB CONC 32.4 g/dL (32.0-36.0); Mean Corpuscular Hemoglobin 31.5 pg (27.0-31.0); Mean Corpuscular Volume 97.2 fL (78.0-98.0); Mean Platelet Volume 8.7 fL (7.4-10.4); Platelet Count 87 thou/uL (130-400); Red Blood Cell (RBC) Count 4.16 mill/uL (4.20-5.40); White Blood Cell (WBC) Count 3.7 thou/uL (4.8-10.8)
[2021-02-26 04:56] LABS: SARS-CoV-2 NAA Rapid Test Not Detected (NotDetected)
[2021-02-26 04:58] LABS: Anion Gap 17 mmol/L (10-20); BUN (Urea Nitrogen) 57 mg/dL (9.8-20.1); Calc. Creatinine Clearance 8 mL/min (70-130); Carbon Dioxide 25 mmol/L (23-31); Chloride 99 mmol/L (98-107); Potassium 6.1 mmol/L (3.5-5.1); Sodium 135 mmol/L (136-145)
[2021-02-26 04:59] LABS: Calcium 9.6 mg/dL (7.8-10.44); Glucose 227 mg/dL (83-110)
[2021-02-26] MEDS: Aspirin 81 mg Enteric Coated Tablet PO SCH (08:47)
[2021-02-26] MEDS: Famotidine 20 MG TAB PO SCH (08:47)
[2021-02-26] MEDS ORDERED: Heparin 10,000 UNITS/ 10 ML VIAL ONE (10:07)
[2021-02-26] MEDS: Atorvastatin Calcium 40 MG TAB PO SCH (20:14)
[2021-02-27] MEDS: Famotidine 20 MG TAB PO SCH (10:35)
[2021-02-27] MEDS: Aspirin 81 mg Enteric Coated Tablet PO SCH (10:35)
[2021-02-27] MEDS ORDERED: Calcium Carbonate 500 MG ChewTAB PO PRN (11:46)
[2021-02-27] MEDS ORDERED: Senokot S 8.6-50 MG TAB PO PRN (11:46)
[2021-02-27] MEDS ORDERED: Loperamide HCl 2 MG CAP PO PRN (11:46)
[2021-02-27] MEDS ORDERED: Artificial Tear Sol 15 ML BOT EA EYE PRN (11:46)
[2021-02-27] MEDS ORDERED: Loratadine 10 MG TAB PO PRN (11:46)
[2021-02-27] MEDS ORDERED: Bisacodyl 5 MG TAB PO PRN (11:46)
[2021-02-27] MEDS ORDERED: GUAIFENESIN SF SOLN 200 MG/10 ML UDCUP PO PRN (11:46)
[2021-02-27] MEDS ORDERED: Sodium Chloride 0.65% Nasal 44 ML BOT EA NARE PRN (11:46)
[2021-02-27] MEDS ORDERED: hydrALAZINE 20 MG/ML VIAL SLOW IVP PRN (11:46)
[2021-02-27] MEDS ORDERED: Ondansetron ODT 4 MG TAB PO PRN (11:46)
[2021-02-27] MEDS ORDERED: Hydrocerin (Eucerin) Cream 120 gm Jar TOP PRN (11:46)
[2021-02-27] MEDS ORDERED: Cepastat Lozenges 1 LOZ PO PRN (11:46)
[2021-02-27] MEDS ORDERED: Melatonin 3 MG TAB PO PRN (11:47)
[2021-02-27] MEDS: Sevelamer Carbonate 800 MG TAB PO SCH ×2 (13:18→19:09)
[2021-02-27] MEDS ORDERED: CEFAZOLIN 2 GM in Premix Bag 1 BAG IVPB SCH (16:30)
[2021-02-27 17:45] LABS: #Eosinphils 0.1 thou/uL (0.0-0.7); #Lymphocytes 1.1 thou/uL (1.20-3.40); #Monocytes 0.3 thou/uL (0.11-0.59); #Neutrophils 2.1 thou/uL (1.40-6.50); %Basophils 0.7 % (0.0-1.0); %Eosinophils 2.6 % (0.0-10.0); %Lymphocytes 30.8 % (21.0-51.0); %Monocytes 8.1 % (0.0-10.0); %Neutrophils 57.8 % (42.0-75.0); Hemoglobin 11.7 g/dL (12.0-16.0); Mean Corpuscular HGB CONC 32.3 g/dL (32.0-36.0); Mean Corpuscular Hemoglobin 31.6 pg (27.0-31.0); Mean Corpuscular Volume 97.8 fL (78.0-98.0); Mean Platelet Volume 8.6 fL (7.4-10.4); Platelet Count 84 thou/uL (130-400); RBC Distribution Width 16.9 % (11.5-14.5); Red Blood Cell (RBC) Count 3.69 mill/uL (4.20-5.40); White Blood Cell (WBC) Count 3.6 thou/uL (4.8-10.8)
[2021-02-27 17:55] LABS: Anion Gap 16 mmol/L (10-20); BUN (Urea Nitrogen) 29 mg/dL (9.8-20.1); Calc. Creatinine Clearance 12 mL/min (70-130); Calcium 8.7 mg/dL (7.8-10.44); Carbon Dioxide 25 mmol/L (23-31); Chloride 101 mmol/L (98-107); Glucose 115 mg/dL (83-110); Potassium 4.9 mmol/L (3.5-5.1); Sodium 137 mmol/L (136-145)
[2021-02-27] MEDS: Atorvastatin Calcium 40 MG TAB PO SCH (21:14)
[2021-02-27] MEDS: busPIRone HCl 10 MG TAB PO SCH (21:14)
[2021-02-27] MEDS: cefTRIAXone\\ROCEPHIN 1 GM in Sodium Chloride 0.9% 100 ML IVPB SCH (21:23)
[2021-02-27] MEDS ORDERED: predniSONE 5 MG TAB ONE (23:03)
[2021-02-28 06:02] LABS: Anion Gap 16 mmol/L (10-20); BUN (Urea Nitrogen) 34 mg/dL (9.8-20.1); Calc. Creatinine Clearance 10 mL/min (70-130); Calcium 8.8 mg/dL (7.8-10.44); Carbon Dioxide 25 mmol/L (23-31); Chloride 101 mmol/L (98-107); Glucose 115 mg/dL (83-110); Potassium 5.4 mmol/L (3.5-5.1); Sodium 137 mmol/L (136-145)
[2021-02-28 06:41] LABS: #Eosinphils 0.1 thou/uL (0.0-0.7); #Lymphocytes 1.1 thou/uL (1.20-3.40); #Monocytes 0.3 thou/uL (0.11-0.59); #Neutrophils 2.4 thou/uL (1.40-6.50); %Basophils 0.9 % (0.0-1.0); %Eosinophils 2.1 % (0.0-10.0); %Monocytes 8.4 % (0.0-10.0); %Neutrophils 61.5 % (42.0-75.0); Hemoglobin 11.2 g/dL (12.0-16.0); Mean Corpuscular HGB CONC 32.4 g/dL (32.0-36.0); Mean Corpuscular Hemoglobin 31.5 pg (27.0-31.0); Mean Corpuscular Volume 97.1 fL (78.0-98.0); Mean Platelet Volume 8.6 fL (7.4-10.4); Platelet Count 91 thou/uL (130-400); Red Blood Cell (RBC) Count 3.55 mill/uL (4.20-5.40); White Blood Cell (WBC) Count 3.9 thou/uL (4.8-10.8)
[2021-02-28] MEDS: Amlodipine 5 MG TAB PO SCH (08:43)
[2021-02-28] MEDS: busPIRone HCl 10 MG TAB PO SCH ×3 (08:43→22:28)
[2021-02-28] MEDS: Sevelamer Carbonate 800 MG TAB PO SCH ×3 (08:43→17:04)
[2021-02-28] MEDS: Aspirin 81 mg Enteric Coated Tablet PO SCH (08:43)
[2021-02-28] MEDS: Famotidine 20 MG TAB PO SCH (08:43)
[2021-02-28] MEDS ORDERED: Heparin 10,000 UNITS/ 10 ML VIAL ONE ×2 (10:36→16:51)
[2021-02-28] MEDS ORDERED: ceFAZolin 2 GM/DEX 5% 100 ML BAG ONE (16:09)
[2021-02-28] MEDS ORDERED: Fentanyl 100 MCG/2 ML VIAL ONE (16:39)
[2021-02-28] MEDS ORDERED: Heparin 5,000 UNITS/ML VIAL ONE (16:51)
[2021-02-28] MEDS ORDERED: Lidocaine 1% w/Epinephrine 1:100K 20 ML VIAL ONE (16:51)
[2021-02-28] MEDS ORDERED: Bupivacaine PF 0.5% 30 ML VIAL ONE (16:51)
[2021-02-28] MEDS ORDERED: Protamine Sulfate 50 MG/5 ML VIAL ONE (16:51)
[2021-02-28] MEDS ORDERED: Sodium Chloride 0.9% 0 ML ONE (16:51)
[2021-02-28] MEDS ORDERED: ePHEDrine 50 MG/ML VIAL ONE (17:24)
[2021-02-28] MEDS ORDERED: PHENYLEPHRINE-NS 100 MCG/ML 10 ML SYRINGE ONE (17:24)
[2021-02-28] MEDS ORDERED: PROPOFOL 200 MG/20 ML VIAL ONE (17:24)
[2021-02-28] MEDS ORDERED: Dexamethasone 20 MG/5 ML VIAL ONE (17:24)
[2021-02-28] MEDS ORDERED: Ondansetron PF 4 MG/2 ML Vial ONE (17:24)
[2021-02-28] MEDS ORDERED: Lidocaine 1% PF 5 ML VIAL ONE (17:24)
[2021-02-28] MEDS ORDERED: Bupivacaine 0.25% HCL 30 ML VIAL ONE ×2 (17:46)
[2021-02-28] MEDS ORDERED: EPINEPHrine 1 MG/ML AMP ONE (17:46)
[2021-02-28] MEDS ORDERED: Acetaminophen 500 MG TAB PO PRN ×2 (19:14→19:17)
[2021-02-28] MEDS: Atorvastatin Calcium 40 MG TAB PO SCH ×2 (21:20→22:28)
[2021-02-28] MEDS: cefTRIAXone\\ROCEPHIN 1 GM in Sodium Chloride 0.9% 100 ML IVPB SCH (21:20)
[2021-03-01 04:01] LABS: #Lymphocytes 0.6 thou/uL (1.20-3.40); #Monocytes 0.1 thou/uL (0.11-0.59); #Neutrophils 5.8 thou/uL (1.40-6.50); %Eosinophils 0.2 % (0.0-10.0); %Lymphocytes 8.8 % (21.0-51.0); %Monocytes 1.2 % (0.0-10.0); %Neutrophils 89.9 % (42.0-75.0); Hemoglobin 10.7 g/dL (12.0-16.0); Mean Corpuscular HGB CONC 32.4 g/dL (32.0-36.0); Mean Corpuscular Volume 98.7 fL (78.0-98.0); Mean Platelet Volume 9.1 fL (7.4-10.4); Platelet Count 94 thou/uL (130-400); RBC Distribution Width 16.7 % (11.5-14.5); Red Blood Cell (RBC) Count 3.35 mill/uL (4.20-5.40); White Blood Cell (WBC) Count 6.4 thou/uL (4.8-10.8)
[2021-03-01 04:15] LABS: Anion Gap 28 mmol/L (10-20); BUN (Urea Nitrogen) 30 mg/dL (9.8-20.1); Calc. Creatinine Clearance 12 mL/min (70-130); Calcium 8.8 mg/dL (7.8-10.44); Carbon Dioxide 12 mmol/L (23-31); Chloride 102 mmol/L (98-107); Glucose 235 mg/dL (83-110); Potassium 6.2 mmol/L (3.5-5.1); Sodium 136 mmol/L (136-145)
[2021-03-01] MEDS: Sevelamer Carbonate 800 MG TAB PO SCH ×3 (08:10→18:31)
[2021-03-01] MEDS: Amlodipine 5 MG TAB PO SCH (08:10)
[2021-03-01] MEDS: Famotidine 20 MG TAB PO SCH (08:11)
[2021-03-01] MEDS: Aspirin 81 mg Enteric Coated Tablet PO SCH (08:11)
[2021-03-01] MEDS: Folic Acid/Vit B Comp W-C PO SCH (08:11)
[2021-03-01] MEDS: Sodium Bicarbonate Tab 325 MG TAB PO SCH ×2 (08:11→20:41)
[2021-03-01] MEDS: busPIRone HCl 10 MG TAB PO SCH ×2 (08:11→20:41)
[2021-03-01] MEDS: Megestrol Acetate 800 MG/20 ML UDCUP PO SCH (08:11)
[2021-03-01] MEDS ORDERED: [UNRECOGNIZED DRUG - OTHER] PO SCH (09:00)
[2021-03-01] MEDS ORDERED: ZINC PO SCH (09:00)
[2021-03-01] MEDS ORDERED: VIT B COMPLX C PO SCH (09:00)
[2021-03-01] MEDS ORDERED: FOLIC ACID PO SCH (09:00)
[2021-03-01] MEDS ORDERED: Epoetin (ESRD) 20,000 UNITS/ML SC SCH (11:45)
[2021-03-01] MEDS ORDERED: EPOETIN ALFA-EPBX (ESRD) 4,000 UNIT/ML VIAL SC SCH (12:00)
[2021-03-01] MEDS: cefTRIAXone\\ROCEPHIN 1 GM in Sodium Chloride 0.9% 100 ML IVPB SCH (20:40)
[2021-03-01] MEDS: Atorvastatin Calcium 40 MG TAB PO SCH (20:41)
[2021-03-02] MEDS: Megestrol Acetate 800 MG/20 ML UDCUP PO SCH (08:42)
[2021-03-02] MEDS: Sodium Bicarbonate Tab 325 MG TAB PO SCH ×3 (08:42→20:12)
[2021-03-02] MEDS: Famotidine 20 MG TAB PO SCH (08:42)
[2021-03-02] MEDS: Sevelamer Carbonate 800 MG TAB PO SCH ×3 (08:43→17:18)
[2021-03-02] MEDS: Amlodipine 5 MG TAB PO SCH (08:43)
[2021-03-02] MEDS: Aspirin 81 mg Enteric Coated Tablet PO SCH (08:44)
[2021-03-02] MEDS: Folic Acid/Vit B Comp W-C PO SCH (08:44)
[2021-03-02] MEDS: busPIRone HCl 10 MG TAB PO SCH ×3 (08:44→20:11)
[2021-03-02 10:25] LABS: Anion Gap 18 mmol/L (10-20); BUN (Urea Nitrogen) 18 mg/dL (9.8-20.1); Calc. Creatinine Clearance 14 mL/min (70-130); Calcium 8.5 mg/dL (7.8-10.44); Carbon Dioxide 26 mmol/L (23-31); Chloride 100 mmol/L (98-107); Glucose 140 mg/dL (83-110); Potassium 3.6 mmol/L (3.5-5.1); Sodium 140 mmol/L (136-145)
[2021-03-02] MEDS: cefTRIAXone\\ROCEPHIN 1 GM in Sodium Chloride 0.9% 100 ML IVPB SCH (20:06)
[2021-03-02] MEDS: Atorvastatin Calcium 40 MG TAB PO SCH ×2 (20:07→20:12)
[2021-03-03 05:10] LABS: #Monocytes 0.3 thou/uL (0.11-0.59); #Neutrophils 2.2 thou/uL (1.40-6.50); %Basophils 0.4 % (0.0-1.0); %Eosinophils 1.1 % (0.0-10.0); %Lymphocytes 27.8 % (21.0-51.0); %Monocytes 8.3 % (0.0-10.0); %Neutrophils 62.4 % (42.0-75.0); Hemoglobin 9.1 g/dL (12.0-16.0); Mean Corpuscular HGB CONC 32.5 g/dL (32.0-36.0); Mean Corpuscular Hemoglobin 31.6 pg (27.0-31.0); Mean Corpuscular Volume 97.1 fL (78.0-98.0); Mean Platelet Volume 8.5 fL (7.4-10.4); Platelet Count 111 thou/uL (130-400); RBC Distribution Width 16.3 % (11.5-14.5); Red Blood Cell (RBC) Count 2.87 mill/uL (4.20-5.40); White Blood Cell (WBC) Count 3.5 thou/uL (4.8-10.8)
[2021-03-03 05:14] LABS: ALT (SGPT) Less than 7 U/L (8-55); AST (SGOT) 16 U/L (5-34); Albumin 2.7 g/dL (3.4-4.8); Alkaline Phosphatase 80 U/L (40-110); Anion Gap 18 mmol/L (10-20); BUN (Urea Nitrogen) 25 mg/dL (9.8-20.1); Bilirubin, Total 0.4 mg/dL (0.2-1.2); Calc. Creatinine Clearance 10 mL/min (70-130); Calcium 8.1 mg/dL (7.8-10.44); Carbon Dioxide 27 mmol/L (23-31); Chloride 101 mmol/L (98-107); Globulin 3.5 g/dL (2.4-3.5); Glucose 132 mg/dL (83-110); Phosphorus 4.3 mg/dL (2.3-4.7); Potassium 3.7 mmol/L (3.5-5.1); Protein, Total 6.2 g/dL (5.8-8.1); Sodium 142 mmol/L (136-145)
[2021-03-03] MEDS: Amlodipine 5 MG TAB PO SCH (11:36)
[2021-03-03] MEDS: Sevelamer Carbonate 800 MG TAB PO SCH ×2 (11:36→14:17)
[2021-03-03] MEDS: busPIRone HCl 10 MG TAB PO SCH (11:37)
[2021-03-03] MEDS: Famotidine 20 MG TAB PO SCH (11:37)
[2021-03-03] MEDS: Megestrol Acetate 800 MG/20 ML UDCUP PO SCH (11:37)
[2021-03-03] MEDS: Folic Acid/Vit B Comp W-C PO SCH (11:37)
[2021-03-03] MEDS: Aspirin 81 mg Enteric Coated Tablet PO SCH (11:37)
[2021-03-03] MEDS: Sodium Bicarbonate Tab 325 MG TAB PO SCH (11:38)
[2021-03-03 15:49] VITALS: BP 145/67; TEMP 98.7
== END 2021-03-03 17:20 | disposition hospice, home (50) | DRG 252 ==
LOC: ERS 16:00 → ERHOLD 20:14 → IMCU/EMU 02-26 16:24 → 2NO 03-01 17:58
PROVIDERS: ADMIT Internal Medicine; ATTEND Internal Medicine
PROC: 5A1D70Z Performance of Urinary Filtration, Intermittent, Less than 6 Hours Per Day (ICD-10-PCS; 2021-02-25)
PROC: 03150ZD Bypass Right Axillary Artery to Upper Arm Vein, Open Approach (ICD-10-PCS; principal; 2021-02-28)
PROC: 05CD0ZZ Extirpation of Matter from Right Cephalic Vein, Open Approach (ICD-10-PCS; 2021-02-28)
DX: T82.868A Thrombosis due to vascular prosthetic devices, implants and grafts, initial encounter (principal); Z51.5 Encounter for palliative care; Z20.822 Contact with and (suspected) exposure to COVID-19; N18.6 End stage renal disease; I13.2 Hypertensive heart and chronic kidney disease with heart failure and with stage 5 chronic kidney disease, or end stage renal disease; I69.354 Hemiplegia and hemiparesis following cerebral infarction affecting left non-dominant side; N25.81 Secondary hyperparathyroidism of renal origin; N39.0 Urinary tract infection, site not specified; T82.590A Other mechanical complication of surgically created arteriovenous fistula, initial encounter; I50.9 Heart failure, unspecified; I25.10 Atherosclerotic heart disease of native coronary artery without angina pectoris; E11.22 Type 2 diabetes mellitus with diabetic chronic kidney disease; D69.6 Thrombocytopenia, unspecified; Y83.1 Surgical operation with implant of artificial internal device as the cause of abnormal reaction of the patient, or of later complication, without mention of misadventure at the time of the procedure; E87.5 Hyperkalemia; F41.9 Anxiety disorder, unspecified; D63.1 Anemia in chronic kidney disease; F32.A Depression, unspecified; Z99.2 Dependence on renal dialysis; Z88.5 Allergy status to narcotic agent; Z88.8 Allergy status to other drugs, medicaments and biological substances; Z79.899 Other long term (current) drug therapy; Z79.4 Long term (current) use of insulin; Z79.82 Long term (current) use of aspirin; Z90.49 Acquired absence of other specified parts of digestive tract; Z90.710 Acquired absence of both cervix and uterus; Z98.51 Tubal ligation status; Z90.5 Acquired absence of kidney; Z87.440 Personal history of urinary (tract) infections
CPT/HCPCS: 36415; 36416; 71045; 80048; 80053; 81003; 81015; 83735; 84100; 84484; 85025; 87086; 90935; 93005; 93931; 93970; C1776; G0257; J0171; J0696; J1100; J1642; J1644; J1815; J2405; J2704; J2720; J3010; J3490; Q5105; S0020; U0002